=== PATIENT | male | born 1965 | race American Indian/Alaskan Native ===

== ENCOUNTER 2017-05-01 19:17 | Inpatient (IN) | payer OTHER ==
[2017-05-01] MEDS ORDERED: TYLENOL PO ONE (19:41)
[2017-05-01 20:04] LABS: Basophils % (Auto) 0.4 % (0.0-1.8); Eosinophils % (Auto) 0.2 % (0.0-4.3); Hematocrit 46.7 % (35.5-45.6); Hemoglobin 16.2 gm/dl (11.8-15.2); Mean Corpuscular HGB Conc 35 % (32-34); Mean Corpuscular Volume 90 fl (84-94); Platelet Count 132 K/mm3 (140-440); Red Blood Count 5.17 M/mm3 (3.65-5.03); Red Cell Distribution Width 13.8 % (13.2-15.2)
[2017-05-01 20:06] LABS: White Blood Count 9.6 K/mm3 (4.5-11.0)
[2017-05-01 20:07] LABS: Diff Status Complete; Mean Corpuscular Hemoglobin 31 pg (28-32)
[2017-05-01 20:17] LABS: Anion Gap 21 mmol/L; BUN/Creatinine Ratio 21; Blood Urea Nitrogen 17 mg/dL (9-20); Calcium 8.2 mg/dL (8.4-10.2); Carbon Dioxide 20 mmol/L (22-30); Chloride 106.8 mmol/L (98-107); Glucose 93 mg/dL (75-100); Potassium 3.6 mmol/L (3.6-5.0); Sodium 144 mmol/L (137-145)
--- NOTE | 2017-05-01 22:17 | Emergency Department Report ---
HPI - General Chief Complaint: Dyspnea/Respdistress Time Seen by Provider: 05/01/17 21:34 - HPI HPI: This is a 52 year-old male presents to the emergency department with complaint of a 2 to three-day history of intermittent sharp chest pains, shortness of breath, mixed dry and productive cough. He was noted to be diaphoretic in triage. The patient himself says that "everything" is going on. He denies having past medical history but also has not seen a primary care physician and years or decades. He denies tobacco or illicit drug use or abuse. He tried some Advil and aspirin for his symptoms without much relief. No recent travel or sick contacts at home. He does say that he has had some intermittent fevers. He denies any nausea, vomiting, dysuria, edema. ED Past Medical Hx - Past Medical History Previous Medical History?: No - Surgical History Past Surgical History?: No - Social History Smoking Status: Never Smoker Substance Use Type: Alcohol ED Review of Systems ROS: Stated complaint: CONGESTION,COLD, Other details as noted in HPI Comment: All other systems reviewed and negative Constitutional: chills, fever Eyes: denies: eye pain, eye discharge, vision change ENT: denies: ear pain, throat pain Respiratory: cough, shortness of breath Cardiovascular: chest pain. denies: palpitations, edema Gastrointestinal: denies: abdominal pain, nausea, diarrhea Genitourinary: denies: urgency, dysuria Musculoskeletal: denies: back pain, joint swelling, arthralgia Skin: denies: rash, lesions Neurological: denies: headache, weakness, paresthesias Physical Exam - Physical Exam Vital Signs: Vital Signs 05/01/17 05/01/17 05/01/17 19:28 19:31 19:49 Temperature 99.4 F 99.4 F Pulse Rate 133 H 134 H Respiratory 18 26 H 26 H Rate Blood Pressure 171/109 171/109 O2 Sat by Pulse 92 92 Oximetry Physical Exam: GENERAL: The patient is well-developed well-nourished. HENT: Normocephalic. Atraumatic. Patient has moist mucous membranes. EYES: Extraocular motions are intact. Pupils equal reactive to light bilaterally. NECK: Supple. Trachea is midline. CHEST/LUNGS: There are some coarse breath sounds and some rhonchi heard throughout the chest. There is some tachypnea but no excessive muscle use. There is no respiratory distress noted. HEART/CARDIOVASCULAR: Regular. There is mild to moderate tachycardia. There is no gallop rub or murmur. ABDOMEN: Abdomen is soft, nontender. Patient has normal bowel sounds. There is no abdominal distention. SKIN: Skin is warm and dry. NEURO: The patient is awake, alert, and oriented. The patient is cooperative. The patient has no focal neurologic deficits. The patient has normal speech. MUSCULOSKELETAL: There is no tenderness or deformity. There is no limitation range of motion. There is no evidence of acute injury. ED Course Vital Signs 05/01/17 05/01/17 05/01/17 19:28 19:31 19:49 Temperature 99.4 F 99.4 F Pulse Rate 133 H 134 H Respiratory 18 26 H 26 H Rate Blood Pressure 171/109 171/109 O2 Sat by Pulse 92 92 Oximetry ED Medical Decision Making - Lab Data Result diagrams: 05/01/17 19:49 05/01/17 19:46 - EKG Data -: EKG Interpreted by Me EKG shows normal: sinus rhythm (with PVCs), axis, intervals, QRS complexes (LVH) , ST-T waves Rate: tachycardia (130 bpm) - EKG Data When compared to previous EKG there are: previous EKG unavailable Interpretation: LVH - Radiology Data Radiology results: report reviewed, image reviewed interpreted by me: Chest x-ray shows bilateral perihilar infiltrates concerning for pneumonia. There also may be some underlying vascular congestion. PROCEDURE: CT ANGIO CHEST TECHNIQUE: Computerized tomographic angiography of the chest was performed after the IV injection of iodinated nonionic contrast including image processing. The image data was postprocessed using 2-dimensional multiplanar reformatted (MPR) and 3-dimensional (MIP and/or volume rendered) techniques. HISTORY: SOB, elevated dimer COMPARISON: No prior studies are available for comparison. FINDINGS: Heart and pericardium: Normal. Thoracic aorta: There is no thoracic aortic aneurysm or dissection.. Pulmonary vasculature: There is no pulmonary embolism.. Lymph nodes: There are prominent mediastinal and hilar lymph nodes. These could be reactive.. Lungs: Lungs are well-expanded. There are diffuse bilateral perihilar infiltrates. There are mild emphysematous changes.. Pleural space: There is no pleural effusion or pneumothorax.. Musculoskeletal structures: No significant abnormality. Upper abdominal structures: No significant abnormality. IMPRESSION: Heart size is normal. There is no thoracic aortic aneurysm or dissection.. There is no pulmonary embolism.. There are prominent mediastinal and hilar lymph nodes. These could be reactive.. Lungs are well-expanded. There are diffuse bilateral perihilar infiltrates. There are mild emphysematous changes.. There is no pleural effusion or pneumothorax.. Transcribed By: CO Dictated By: YUMIKO CHOWDARY MD Electronically Authenticated By: YUMIKO CHOWDARY MD Signed Date/Time: 05/01/17 8139 - Medical Decision Making The patient presents with some shortness of breath, chest discomfort. His lungs sound rhonchorous and slightly coarse. He has some tachycardia and tachypnea but does not appear to be in any respiratory distress. Chest x-ray shows concern for bilateral perihilar pneumonia but there also may be some underlying vascular congestion. His BNP was elevated at about 1500 so he was given a dose of Lasix. When his heart rate came down to a more reasonable level he was given a breathing treatment. He was afebrile but did have some hypoxia with a pulse ox down in the low 90s. He had a slightly elevated and equivocal d-dimer so a CT angiography of the chest was done that did not show any PE or dissection but did show confirmation of the infiltrates and probable pneumonia. Blood cultures are sent and the patient was started on antibiotics and he will be admitted to the hospital and has been accepted by the hospitalist , Dr Medel. - Differential Diagnosis PE, Pneumonia, CHF, COPD Critical Care Time: No Critical care attestation.: If time is entered above; I have spent that time in minutes in the direct care of this critically ill patient, excluding procedure time. ED Disposition Clinical Impression: Hypoxia Dyspnea Qualifiers: Dyspnea type: shortness of breath Qualified Code(s): R06.02 - Shortness of breath Bilateral pneumonia Qualifiers: Pneumonia type: due to unspecified organism Lung location: unspecified part of lung Qualified Code(s): J18.9 - Pneumonia, unspecified organism Disposition: OP ADMIT IP TO THIS HOSP Is pt being admited?: Yes Condition: Stable Time of Disposition: 03:18
--- NOTE | 2017-05-01 22:18 | XRay Report ---
FINAL REPORT EXAM: XR CHEST ROUTINE 2V HISTORY: Shortness of breath TECHNIQUE: Chest two views PRIORS: None. FINDINGS: There is bilateral central interstitial and alveolar prominence with air bronchograms present. Cardiac silhouette is enlarged. No pleural effusion seen. Pulmonary vasculature is unremarkable. IMPRESSION: Bilateral central pulmonary infiltrates. Pattern is most consistent with acute pulmonary edema. This could be cardiogenic or noncardiogenic. Mild cardiomegaly
[2017-05-01 22:20] LABS: INR 1.27 (0.87-1.13)
[2017-05-01] MEDS ORDERED: LASIX IV ONE (22:39)
[2017-05-01] MEDS ORDERED: NACL ONE (23:47)
[2017-05-02] MEDS ORDERED: DUONEB *Not for PRN Use IH ONE (01:12)
--- NOTE | 2017-05-02 02:56 | Cat Scan Report ---
FINAL REPORT PROCEDURE: CT ANGIO CHEST TECHNIQUE: Computerized tomographic angiography of the chest was performed after the IV injection of iodinated nonionic contrast including image processing. The image data was postprocessed using 2-dimensional multiplanar reformatted (MPR) and 3-dimensional (MIP and/or volume rendered) techniques. HISTORY: SOB, elevated dimer COMPARISON: No prior studies are available for comparison. FINDINGS: Heart and pericardium: Normal. Thoracic aorta: There is no thoracic aortic aneurysm or dissection.. Pulmonary vasculature: There is no pulmonary embolism.. Lymph nodes: There are prominent mediastinal and hilar lymph nodes. These could be reactive.. Lungs: Lungs are well-expanded. There are diffuse bilateral perihilar infiltrates. There are mild emphysematous changes.. Pleural space: There is no pleural effusion or pneumothorax.. Musculoskeletal structures: No significant abnormality. Upper abdominal structures: No significant abnormality. IMPRESSION: Heart size is normal. There is no thoracic aortic aneurysm or dissection.. There is no pulmonary embolism.. There are prominent mediastinal and hilar lymph nodes. These could be reactive.. Lungs are well-expanded. There are diffuse bilateral perihilar infiltrates. There are mild emphysematous changes.. There is no pleural effusion or pneumothorax..
[2017-05-02] MEDS ORDERED: LEVAQUIN 750MG/150ML 750 MG/150 ML BAG IV ONE (03:04)
[2017-05-02] MEDS ORDERED: NACL 0.9% 250ML 250 ML ONE (03:39)
[2017-05-02] MEDS ORDERED: NACL 0.9% 250ML 250 ML IV ONE (03:55)
[2017-05-02] MEDS: HEPARIN SUB-Q SCH ×3 (06:08→22:19)
[2017-05-02] MEDS ORDERED: DULCOLAX PR PRN (06:56)
[2017-05-02] MEDS ORDERED: MILK OF MAGNESIA PO PRN (06:56)
[2017-05-02] MEDS ORDERED: ZOFRAN IV PRN (06:56)
--- NOTE | 2017-05-02 07:02 | History and Physical Report ---
History of Present Illness Date of admission: 05/02/17 03:18 Chief complaint: Productive cough History of present illness: 52-year-old male with no significant past medical history who presents to the hospital with 4 days of progressively worsening productive cough. He is also complaining of intermittent fevers and shortness of breath. Body aches also, he just feels that everything is wrong with him right now. Denies any sick contacts, denies recent travel. Past History Past Medical History: No medical history Past Surgical History: No surgical history Social history: no significant social history Family history: no significant family history Medications and Allergies Allergies Allergy/AdvReac Type Severity Reaction Status Date / Time No Known Allergies Allergy Verified 04/29/15 01:38 Home Medications Medication Instructions Recorded Confirmed Last Taken Type No Known Home Medications [No 05/02/17 05/02/17 Unknown History Reported Home Medications] Active Meds: Active Medications Heparin Sodium (Porcine) (Heparin) 5,000 unit SUB-Q Q8HR [facility] Last Admin: 05/02/17 06:08 Dose: 5,000 unit Levofloxacin/Dextrose (Levaquin 750mg/150ml) 750 mg in 150 mls @ 100 mls/hr IV Q24HR [facility] PRN Reason: Protocol Influenza Virus Vaccine Quadrival (Fluarix Quad [id number](36 Mos+) 0.5 ml IM .ONCE ONE Stop: 05/02/17 12:01 Pneumococcal Polyvalent Vaccine (Pneumovax 23) 0.5 ml IM .ONCE ONE Stop: 05/02/17 12:01 Review of Systems All systems: negative Constitutional: fatigue, malaise, lethargy Respiratory: cough with sputum, shortness of breath Exam - Constitutional Vitals: Temp Pulse Resp BP Pulse Ox 98.9 F 115 H 16 136/94 92 05/02/17 05:33 05/02/17 05:46 05/02/17 05:33 05/02/17 05:33 05/02/17 05:33 General appearance: Present: no acute distress, well-nourished - EENT Eyes: Present: PERRL ENT: hearing intact, clear oral mucosa - Neck Neck: Present: supple, normal ROM - Respiratory Respiratory effort: normal Respiratory: bilateral: rhonchi - Cardiovascular Heart Sounds: Present: S1 & S2. Absent: rub, click - Extremities Extremities: pulses symmetrical, No edema Peripheral Pulses: within normal limits - Abdominal General gastrointestinal: Present: soft, non-tender, non-distended, normal bowel sounds Male genitourinary: Present: normal - Integumentary Integumentary: Present: clear, warm, dry - Musculoskeletal Musculoskeletal: gait normal, strength equal bilaterally - Psychiatric Psychiatric: appropriate mood/affect, intact judgment & insight - Neurologic Neurologic: CNII-XII intact, moves all extremities Results - Labs CBC & Chem 7: 05/01/17 19:49 05/01/17 19:46 Labs: Laboratory Last Values WBC 9.6 K/mm3 (4.5-11.0) 05/01/17 19:49 RBC 5.17 M/mm3 (3.65-5.03) H 05/01/17 19:49 Hgb 16.2 gm/dl (11.8-15.2) H 05/01/17 19:49 Hct 46.7 % (35.5-45.6) H 05/01/17 19:49 MCV 90 fl (84-94) 05/01/17 19:49 MCH 31 pg (28-32) 05/01/17 19:49 MCHC 35 % (32-34) H 05/01/17 19:49 RDW 13.8 % (13.2-15.2) 05/01/17 19:49 Plt Count 132 K/mm3 (140-440) L 05/01/17 19:49 Lymph % (Auto) 9.0 % (13.4-35.0) L 05/01/17 19:49 Wetzel % (Auto) 5.0 % (0.0-7.3) 05/01/17 19:49 Eos % (Auto) 0.2 % (0.0-4.3) 05/01/17 19:49 Baso % (Auto) 0.4 % (0.0-1.8) 05/01/17 19:49 Lymph # 0.9 K/mm3 (1.2-5.4) L 05/01/17 19:49 Wetzel # 0.5 K/mm3 (0.0-0.8) 05/01/17 19:49 Eos # 0.0 K/mm3 (0.0-0.4) 05/01/17 19:49 Baso # 0.0 K/mm3 (0.0-0.1) 05/01/17 19:49 Add Manual Diff Complete 05/01/17 19:49 Seg Neutrophils % 85.4 % (40.0-70.0) H 05/01/17 19:49 Seg Neutrophils # 8.2 K/mm3 (1.8-7.7) H 05/01/17 19:49 PT 16.5 Sec. (12.2-14.9) H 05/01/17 21:40 INR 1.27 (0.87-1.13) H 05/01/17 21:40 APTT 38.0 Sec. (24.2-36.6) H 05/01/17 21:40 D-Dimer 243.64 ng/mlDDU (0-234) H 05/01/17 22:26 Sodium 144 mmol/L (137-145) 05/01/17 19:46 Potassium 3.6 mmol/L (3.6-5.0) 05/01/17 19:46 Chloride 106.8 mmol/L (98-107) 05/01/17 19:46 Carbon Dioxide 20 mmol/L (22-30) L 05/01/17 19:46 Anion Gap 21 mmol/L 05/01/17 19:46 BUN 17 mg/dL (9-20) 05/01/17 19:46 Creatinine 0.8 mg/dL (0.8-1.5) 05/01/17 19:46 Estimated GFR > 60 ml/min 05/01/17 19:46 BUN/Creatinine Ratio 21 % 05/01/17 19:46 Glucose 93 mg/dL (75-100) 05/01/17 19:46 Calcium 8.2 mg/dL (8.4-10.2) L 05/01/17 19:46 Troponin T < 0.010 ng/mL (0.00-0.029) 05/02/17 01:45 NT-Pro-B Natriuret Pep 1520 pg/mL (0-900) H 05/01/17 19:46 - Imaging and Cardiology Chest x-ray: image reviewed (bilateral perihilar infiltrates) Assessment and Plan Assessment and plan: 52-year-old male with no significant past medical history admitted to the hospital for pneumonia - Patient Problems (1) Sepsis Current Visit: Yes Status: Acute Plan to address problem: Follow blood cultures, continue antibiotics, continue sepsis pathway (2) Bilateral pneumonia Current Visit: Yes Status: Acute Qualifiers: Pneumonia type: due to unspecified organism Lung location: unspecified part of lung Qualified Code(s): J18.9 - Pneumonia, unspecified organism Plan to address problem: Continue antibiotics which every day started in the ER. Check sputum culture.
[2017-05-02] MEDS: LEVAQUIN 750MG/150ML 750 MG/150 ML BAG IV SCH (11:41)
[2017-05-02] MEDS ORDERED: PNEUMOVAX 23 IM ONE (12:00)
[2017-05-02] MEDS ORDERED: Fluarix Quad 2017-2018(36 MOS+ IM ONE (12:00)
[2017-05-02 14:50] LABS: HIV-1 Antigen p24 Non React (Non React); HIVR-1/2 Ab Non React (Non React)
--- NOTE | 2017-05-02 15:22 | Event Note ---
Date: 05/02/17 patient seen and examined. admitted this am for b/l PNA and sepsis. will cont current mx and plan as dictated in h and P. will order HIV test.
[2017-05-03] MEDS: HEPARIN SUB-Q SCH ×3 (06:17→22:41)
[2017-05-03] MEDS ORDERED: APRESOLINE IV PRN (11:30)
--- NOTE | 2017-05-03 14:00 | Consultation ---
History of Present Illness - Reason for Consult Consult date: 05/03/17 LNs Requesting physician: DEVEN HOLCOMB - History of Present Illness 52 years old male without non medical history, admitted on 05/02/2017 due to 5 days history of malaise, anorexia, dry cough on subjective fever. Patient reports poor appetite. Patient denies any sick contacts. In the emergency room, initial temperature was 99.4, heart rate 136, blood pressure 171/109. Initial white count 9.6. Platelets 132. Hemoglobin 16.2. Creatinine 0.8. HIV test negative. CT of the abdomen showed prominent mediastinal and hilar lymph nodes. Influenza neg. Microbiology: Blood cultures: 05/02 ngtd Urine cultures: Respiratory cultures: Current Antimicrobials: Levaquin 05/02 Previous Antimicrobials: Past History Past Medical History: No medical history Past Surgical History: No surgical history Social history: no significant social history Family history: no significant family history Medications and Allergies Allergies Allergy/AdvReac Type Severity Reaction Status Date / Time No Known Allergies Allergy Verified 04/29/15 01:38 Home Medications Medication Instructions Recorded Confirmed Last Taken Type ALBUTEROL Inhaler [ProAir HFA 2 puff IH QID PRN 30 Days 05/03/17 Unknown Rx Inhaler] inhalation Levofloxacin [Levaquin] 750 mg PO QDAY #30 tablet 05/03/17 Unknown Rx Active Meds: Active Medications Acetaminophen (Tylenol) 650 mg PO Q4H PRN PRN Reason: Pain MILD(1-3)/Fever >100.5/GARCIA Bisacodyl (Dulcolax) 10 mg [place] QDAY PRN PRN Reason: Constipation unrelieved by MOM Heparin Sodium (Porcine) (Heparin) 5,000 unit SUB-Q Q8HR [facility] Last Admin: 05/03/17 06:17 Dose: Not Given Hydralazine HCl (Apresoline) 5 mg IV Q30MIN PRN PRN Reason: Hypertension Levofloxacin/Dextrose (Levaquin 750mg/150ml) 750 mg in 150 mls @ 100 mls/hr IV Q24HR [facility] PRN Reason: Protocol Last Admin: 05/02/17 11:41 Dose: 100 mls/hr Magnesium Hydroxide (Milk Of Magnesia) 30 ml PO Q4H PRN PRN Reason: Constipation Ondansetron HCl (Zofran) 4 mg IV Q8H PRN PRN Reason: N/V unrelieved by Reglan Review of Systems All systems: negative (as per HPI rest neg) Physical Examination - Physical Exam Narrative exam: General appearance: Alert in NAD, conversant Eyes: +icteric sclerae, moist conjunctivae; no lid-lag; PERRLA HENT: Atraumatic; oropharynx clear Neck: Trachea midline; supple, no thyromegaly or lymphadenopathy Lungs: scattered rhonchi CV: RRR, no murmurs Abdomen: Soft, non-tender Extremities: No peripheral edema or extremity lymphadenopathy Skin: Normal temperature, turgor and texture; no rash, ulcers or subcutaneous nodules Psych: Appropriate affect, alert and oriented to person, place and time. Neuro: alert and oriented x 3. Moving all extermities Lines: No CVL / PICC - Constitutional Vitals: Vital Signs Temp Pulse Resp BP Pulse Ox 99.1 F 120 H 18 158/108 96 05/03/17 12:19 05/03/17 11:20 05/03/17 11:19 05/03/17 12:19 05/03/17 11:20 Temperature -Last 24 Hours Temperature 99.1 F Temperature 99.1 F Temperature 98.6 F Temperature 100.1 F Temperature 10.2 F Temperature 99.9 F Temperature 98.9 F Results - Labs CBC & Chem 7: 05/01/17 19:49 05/01/17 19:46 Assessment and Plan Assessment: 1) SIRS: Present on admission, manifested by fever, tachycardia. Etiology unclear ? pneumonia . 2) CAP: CTA showed diffuse perihilar infiltrates and bilateral prominent mediastinal/hilar LNs. DDx: atypical pneumonia, viral, bacterial. HIV rapid neg. Influenza neg. Plan: -follow-up blood cultures -obtain respiratory cultures, procalcitonin, C-reactive protein (CRP) -check Legionella urine antigen, Streptococcus pneumoniae urine antigen -check LFTs -continue levaquin for now Thank you Dr Fuller for your consultation, will follow up with you. Jennifer Oliveira MD Infectious Diseases Specialist [facility], [place], [facility] ([facility]) M [phone] O [phone]
--- NOTE | 2017-05-03 16:06 | Progress Note ---
Assessment and Plan / Sepsis likely due to B/l community acquired PNA Follow blood cultures, continue antibiotics, continue sepsis pathway /Bilateral pneumonia Continue antibiotics with iv levaquin. follow sputum culture. cont to have low grade fever, consulted ID ID recommended following: -check procalcitonin, C-reactive protein (CRP) -check Legionella urine antigen, Streptococcus pneumoniae urine antigen -check LFTs /HTN will place on Norvasc /Elevated BNP obtain 2d echo to assess cardiac EF / DVT Px Lovenox brief History: 52-year-old male with no significant past medical history who presents to the hospital with 4 days of progressively worsening productive cough , intermittent fevers and shortness of breath. CXY and CTA chest showed perihilar lymph adenopathy and b/l cetrilobular infiltrates. Subjective Date of service: 05/03/17 Interval history: pt seen and examined Left AMA this morning because his morning food was delayed he again came back less than an hour by administration refused lab and complained about flu/PNA shot Spiking low grade temp, discussed plan of care at bedside in details Objective - Constitutional Vitals: Vital Signs - 12hr 05/03/17 05/03/17 05/03/17 08:08 08:09 08:13 Temperature 100.1 F H 98.6 F Pulse Rate 116 H 116 H 79 Respiratory 18 18 Rate Blood Pressure 143/99 143/99 145/82 Blood Pressure [Right] O2 Sat by Pulse 94 95 100 Oximetry 05/03/17 05/03/17 05/03/17 08:14 11:19 11:20 Temperature 99.1 F Pulse Rate 79 120 H 120 H Respiratory 18 Rate Blood Pressure 153/108 153/108 Blood Pressure [Right] O2 Sat by Pulse 100 93 96 Oximetry 05/03/17 05/03/17 12:19 14:50 Temperature 99.1 F Pulse Rate 103 H Respiratory Rate Blood Pressure Blood Pressure 158/108 [Right] O2 Sat by Pulse Oximetry General appearance: Present: no acute distress, well-nourished - EENT Eyes: PERRL, EOM intact ENT: hearing intact, clear oral mucosa Ears: bilateral: normal - Neck Neck: supple, normal ROM - Respiratory Respiratory effort: normal Respiratory: bilateral: CTA - Cardiovascular Rhythm: regular Heart Sounds: Present: S1 & S2. Absent: gallop, rub Extremities: pulses intact, No edema, normal color, Full ROM - Gastrointestinal General gastrointestinal: Present: soft, non-tender, non-distended, normal bowel sounds - Integumentary Integumentary: clear, warm, dry - Musculoskeletal Musculoskeletal: 1, strength equal bilaterally - Neurologic Neurologic: moves all extremities - Psychiatric Psychiatric: memory intact, appropriate mood/affect, intact judgment & insight - Labs CBC & Chem 7: 05/01/17 19:49 05/01/17 19:46 - Imaging and cardiology Chest x-ray: report reviewed CT scan - chest: report reviewed
[2017-05-03] MEDS: LEVAQUIN 750MG/150ML 750 MG/150 ML BAG IV SCH (17:45)
[2017-05-03] MEDS: NORVASC PO SCH (18:48)
[2017-05-03] MEDS: TYLENOL PO PRN (22:41)
[2017-05-04] MEDS: HEPARIN SUB-Q SCH (06:32)
[2017-05-04] MEDS: LEVAQUIN 750MG/150ML 750 MG/150 ML BAG IV SCH (10:11)
[2017-05-04] MEDS: TYLENOL PO PRN (10:12)
[2017-05-04] MEDS: NORVASC PO SCH (10:13)
--- NOTE | 2017-05-04 10:33 | Discharge Summary ---
Providers - Providers Date of Admission: 05/02/17 03:18 Date of discharge: 05/04/17 Attending physician: LIU DYKES MD 05/03/17 10:30 Consult to Physician [CONS] Routine Consulting Provider: SOHAN BLEDSOE Reason For Exam: sepsis Place consult to:: manager configuration ID Notified:: yes Was contact made?: Yes If yes, spoke with:: Dr Delgado Time called:: 10:34 Primary care physician: [employer] Hospitalization Reason for admission: sepsis, bilateral pneumonia, New onset acute systolic CHF Condition: Stable Pertinent studies: Echo EF 15-20% CTA bilateral infiltrates Hospital course: 52-year-old male with no significant past medical history who presents to the hospital with 4 days of progressively worsening productive cough. He is also complaining of intermittent fevers and shortness of breath. Body aches also, he just feels that everything is wrong with him right now. Denies any sick contacts, denies recent travel. Patient was managed according to sepsis protocol for pneumonia and patient showed improvement. Patient admitted that he had dyspnea on exertion for the last 4 months, echo was done and showed ejection fraction of 15-20%, cardiology consulted and recommended cardiac cath and patient refused and signed AGAINST MEDICAL ADVICE and leave the hospital. I have explained the risk benefits of being worked up and get the appropriate medications but he refused. Cardiology advised him to follow up in the clinic. Disposition: [id number] LEFT AGAINST MED ADVICE Time spent for discharge: 31 minutes - Discharge Diagnoses (1) Bilateral pneumonia Status: Acute Qualifiers: Pneumonia type: due to unspecified organism Lung location: unspecified part of lung Qualified Code(s): J18.9 - Pneumonia, unspecified organism (2) Dyspnea Status: Acute Qualifiers: Dyspnea type: shortness of breath Qualified Code(s): R06.02 - Shortness of breath; R06.00 - Dyspnea, unspecified; R06.01 - Orthopnea (3) Sepsis Status: Acute (4) Acute systolic CHF (congestive heart failure), NYHA class 4 Status: Acute Core Measure Documentation - Palliative Care Palliative Care/ Comfort Measures: Not Applicable - Core Measures Any of the following diagnoses?: heart failure, none - Heart Failure Discharge Requirements SHIRLENE/ARB for LVSD if EF <40%: No Reason for no SHIRLENE/ARB: Patient refusal (patient left AMA) Beta sarita at discharge: No Reason for no beta sarita on DC: Patient refusal (patient left AMA) Exam - Physical Exam Narrative exam: Not in cardiopulmonary distress. The patient appeared well nourished and normally developed. Vital signs as documented. Head exam is unremarkable. No scleral icterus . Neck is without jugular venous distension, thyromegaly, or carotid bruits. Lungs are clear to auscultation. Cardiac exam reveals regular rate and Rhythm. First and second heart sounds normal. No murmurs, rubs or gallops. Abdominal exam reveals normal bowel sounds, no masses, no organomegaly and no aortic enlargement. Extremities are nonedematous and both femoral and pedal pulses are normal. VAPOR COATER: Alert and oriented 3. No focal weakness. - Constitutional Vitals: Temp Pulse Resp BP Pulse Ox 99.1 F 80 18 113/74 94 05/04/17 07:37 05/04/17 10:13 05/04/17 07:37 05/04/17 07:37 05/04/17 07:37 Plan Activity: no restrictions Weight Bearing Status: Full Weight Bearing Diet: low cholesterol Follow up with: PRIMARY CAREMD [Primary Care Provider] - 3-5 Days
[2017-05-04 12:04] VITALS: BP 130/99
[2017-05-04] MEDS ORDERED: Fluarix Quad 2017-2018(36 MOS+ IM ONE (12:30)
--- NOTE | 2017-05-04 12:45 | Progress Note ---
Assessment and Plan Assessment: 1) SIRS: still low grade fever. Etiology unclear ? pneumonia +/- CHF exacerbation. 2) Presumed CAP: CTA showed diffuse perihilar infiltrates and bilateral prominent mediastinal/hilar LNs. DDx: atypical pneumonia, viral, bacterial. HIV rapid neg. Influenza neg. 3) CHF ? Plan: -f/u Legionella urine antigen, Streptococcus pneumoniae urine antigen -check LFTs -cards eval -continues levaquin total 7 days I am signing off Thank you Dr Fuller for your consultation, will follow up with you. Jennifer Oliveira MD Infectious Diseases Specialist [facility] ([facility]) M [phone] O [phone] Subjective Date of service: 05/04/17 Principal diagnosis: pneumonia Interval history: Feels better, still low grade fever tmax 100. Minimal cough. Microbiology: Blood cultures: 05/02 ngtd Urine cultures: Respiratory cultures: Current Antimicrobials: Levaquin 05/02 Previous Antimicrobials: Objective - Exam Narrative Exam: General appearance: Alert in NAD, conversant Eyes: +icteric sclerae, moist conjunctivae; no lid-lag; PERRLA HENT: Atraumatic; oropharynx clear Neck: Trachea midline; supple, no thyromegaly or lymphadenopathy Lungs: scattered rhonchi CV: RRR, no murmurs Abdomen: Soft, non-tender Extremities: No peripheral edema or extremity lymphadenopathy Skin: Normal temperature, turgor and texture; no rash, ulcers or subcutaneous nodules Psych: Appropriate affect, alert and oriented to person, place and time. Neuro: alert and oriented x 3. Moving all extermities Lines: No CVL / PICC - Constitutional Vitals: Vital Signs Temp Pulse Resp BP Pulse Ox 98.6 F 110 H 18 130/99 98 05/04/17 11:18 05/04/17 11:18 05/04/17 11:18 05/04/17 11:18 05/04/17 11:18 Temperature -Last 24 Hours Temperature 98.6 F Temperature 99.1 F Temperature 98.8 F Temperature 100.0 F Temperature 99.0 F Temperature 100.3 F Temperature 100.3 F - Labs CBC & Chem 7: 05/01/17 19:49 05/01/17 19:46
--- NOTE | 2017-05-04 13:52 | Consultation ---
History of Present Illness Consult date: 05/04/17 Requesting physician: LIU DYKES Consult reason: other (CMP) History of present illness: Pt is a 52-year-old male with no significant past medical history who presented to the hospital on 05/01 with c/o progressively worsening productive cough, SOB and chest pain and was subsequently diagnosed with bilateral PNA. Of note, he was recently discharged on 04/29 following evaluation of chest pain. He underwent echo on this admission which showed EF 15-20% and thus cardiology has been consulted. On evaluation, pt denies any current complaints and states he is going to leave the hospital today regardless of any further recommendations by medical staff. He admits to [facility] for the past 4 months. He states that he smokes marijuana daily and drinks alcohol daily (6 pack of beer and one bottle of wine). He does not give any additional details. Past History Past Medical History: No medical history Past Surgical History: No surgical history Social history: smoking (marijuana), alcohol abuse Family history: no significant family history Medications and Allergies Allergies Allergy/AdvReac Type Severity Reaction Status Date / Time No Known Allergies Allergy Verified 04/29/15 01:38 Active Meds: Active Medications Acetaminophen (Tylenol) 650 mg PO Q4H PRN PRN Reason: Pain MILD(1-3)/Fever >100.5/GARCIA Last Admin: 05/04/17 10:12 Dose: 650 mg Amlodipine Besylate (Norvasc) 10 mg PO QDAY [facility] Last Admin: 05/04/17 10:13 Dose: 10 mg Bisacodyl (Dulcolax) 10 mg NM QDAY PRN PRN Reason: Constipation unrelieved by MOM Heparin Sodium (Porcine) (Heparin) 5,000 unit SUB-Q Q8HR [facility] Last Admin: 05/04/17 06:32 Dose: Not Given Hydralazine HCl (Apresoline) 5 mg IV Q30MIN PRN PRN Reason: Hypertension Levofloxacin/Dextrose (Levaquin 750mg/150ml) 750 mg in 150 mls @ 100 mls/hr IV Q24HR [facility] PRN Reason: Protocol Last Admin: 05/04/17 10:11 Dose: 100 mls/hr Magnesium Hydroxide (Milk Of Magnesia) 30 ml PO Q4H PRN PRN Reason: Constipation Ondansetron HCl (Zofran) 4 mg IV Q8H PRN PRN Reason: N/V unrelieved by Reglan Review of Systems All systems: negative Respiratory: dyspnea on exertion Physical Examination Vital Signs Pulse BP Pulse Ox 136 H 171/109 92 05/01/17 19:27 05/01/17 19:27 05/01/17 19:27 General appearance: no acute distress HEENT: Positive: PERRL, Normocephaly, Mucus Membranes Moist Neck: Positive: neck supple, trachea midline Cardiac: Positive: Regular Rhythm, S1/S2, S4, Tachycardia Lungs: Positive: clear to auscultation Neuro: Positive: Grossly Intact, Cranial Nerve 2-12 Intact Abdomen: Positive: Unremarkable, Soft, Active Bowel Sounds. Negative: Tender Skin: Positive: Clear. Negative: Rash, Wound Musculoskeletal: No Fluid Collection, No Pain, Normal Range of Motion Extremities: Absent: edema Results 05/01/17 19:49 05/01/17 19:46 - Imaging and Cardiology Echo: report reviewed (EF 15-20%, severe global hypokinesis, LA moderately dilated, moderate MR, moderate TR, RVSP 53mmHg, mod pulm HTN) EKG: report reviewed, image reviewed EKG interpretations - Telemetry EKG Rhythm: Sinus Rhythm - EKG Sinus rhythms and dysrhythmias: sinus rhythm Chamber hypertrophy or enlargement: left ventricular hypertro Repolarization changes or abnormalities: repolarization abn secondary to ventricular hypertrophy Assessment and Plan Assessment: Cardiomyopathy - EF 15-20%; ? ETOH induced Sinus tachycardia Bilateral PNA Elevated DDimer - chest CTA negative for PE. ETOH use / marijuana use - cessation encouraged Plan: Diagnosis of CMP reviewed with pt and increased risk for sudden cardiac discussed. Pt verbalizes understanding. He believes he can manage his CMP via lifestyle modifications (nutrition and cessation of ETOH and marijuana). Ischemic evaluation for further exploration of CMP etiology recommended. Pt declines any further noninvasive or invasive testing at this time. Initiation of BB and ACEI/ARB recommended. However, pt does not wish to stay hospitalized for safe introduction of these medications. Pt to leave AMA. Pt provided with follow up appointment for our office - [facility] with Dr. Vazquez on 05/18/2017 @ 2:15PM. Assessment and plan reviewed with pt and pt's family member at bedside. The patient has been seen in conjunction with Dr. Vazquez who agrees with the assessment and plan of care.
== END 2017-05-04 14:49 | disposition left against medical advice (07) | DRG 871 ==
LOC: ED 19:17 → 4A 05-02 03:18
PROVIDERS: ADMIT Internal Medicine; ATTEND Internal Medicine
DX: A41.9 Sepsis, unspecified organism (principal); J18.9 Pneumonia, unspecified organism; I42.9 Cardiomyopathy, unspecified; R07.9 Chest pain, unspecified; I10 Essential (primary) hypertension; F12.90 Cannabis use, unspecified, uncomplicated; E87.6 Hypokalemia; Z79.2 Long term (current) use of antibiotics; Z79.899 Other long term (current) drug therapy; Z72.89 Other problems related to lifestyle
CPT/HCPCS: 36415; 71020; 71275; 80048; 83880; 84484; 85025; 85379; 85610; 85730; 87040; 87400; 87806; 90686; 90732; 93005; 93010; 93306; 94640; 96365; 96375; J1644; J1940; J1956; J7050; Q9967

== ENCOUNTER 2017-06-14 13:56 | Inpatient (IN) | payer OTHER ==
[2017-06-14 15:02] LABS: Basophils # (Auto) 0.1 K/mm3 (0.0-0.1); Basophils % (Auto) 0.4 % (0.0-1.8); Eosinophils % (Auto) 0.1 % (0.0-4.3); Hematocrit 37.5 % (35.5-45.6); Hemoglobin 12.3 gm/dl (11.8-15.2); Lymphocytes % (Auto) 6.5 % (13.4-35.0); Mean Corpuscular HGB Conc 33 % (32-34); Mean Corpuscular Hemoglobin 28 pg (28-32); Mean Corpuscular Volume 86 fl (84-94); Monocytes % (Auto) 6.3 % (0.0-7.3); Platelet Count 363 K/mm3 (140-440); Red Blood Count 4.34 M/mm3 (3.65-5.03); Red Cell Distribution Width 13.7 % (13.2-15.2)
[2017-06-14 15:21] LABS: BUN/Creatinine Ratio 16; Blood Urea Nitrogen 13 mg/dL (9-20); Calcium 8.1 mg/dL (8.4-10.2); Hemolysis Index 6
--- NOTE | 2017-06-14 15:30 | XRay Report ---
AP CHEST: HISTORY: Shortness of breath Compared to 05/01/17. Cardiomegaly and pulmonary edema is identified. Possible trace pleural effusions. No pneumothorax. The bony structures are grossly intact. IMPRESSION: Mild CHF.
[2017-06-15] MEDS ORDERED: SUBLIMAZE IV ONE (02:51)
[2017-06-15] MEDS ORDERED: ZOFRAN IV ONE (02:51)
[2017-06-15] MEDS ORDERED: LASIX IV ONE ×2 (02:51→02:57)
[2017-06-15] MEDS ORDERED: LEVAQUIN 500MG/100ML 500 MG/100 ML BAG IV ONE (02:52)
--- NOTE | 2017-06-15 02:59 | Emergency Department Report ---
HPI - General Chief Complaint: Dyspnea/Respdistress Time Seen by Provider: 06/15/17 02:42 - HPI HPI: Room 9 The patient is a 52-year-old male presenting with a chief complaint of shortness of breath. The patient states since yesterday his shortness of breath and intermittent chest pain described as "not sharp." Patient is nausea vomiting and diaphoresis with this chest pain. The patient admits to subjective fever and a cough that is nonproductive. Patient states he is not on a diuretic. The patient currently gets his pain score of 3/10 Location: Chest, lungs Duration: 2 Days Quality: "Not sharp" Severity:3/10 Modifying factors: [see above] Context: [see above] Mode of transportation: [not driving] ED Past Medical Hx - Past Medical History Previous Medical History?: Yes Hx Congestive Heart Failure: Yes Additional medical history: Heart Problems - Surgical History Past Surgical History?: No - Family History Family history: no significant - Social History Smoking Status: Former Smoker (none 15 years) Substance Use Type: None (denies illicit drug use) ED Review of Systems ROS: Stated complaint: COUGH, CP Other details as noted in HPI Constitutional: diaphoresis, fever Respiratory: cough, shortness of breath Cardiovascular: chest pain Gastrointestinal: nausea, vomiting Physical Exam - Physical Exam Vital Signs: Vital Signs 06/14/17 06/15/17 06/15/17 14:26 01:21 02:00 Temperature 100.8 F H 102.9 F H 101.7 F H Pulse Rate 51 L 129 H 125 H Respiratory 22 20 22 Rate Blood Pressure 136/93 121/85 Blood Pressure 124/74 [Left] O2 Sat by Pulse 97 90 93 Oximetry Physical Exam: GENERAL: The patient is well-developed well-nourished male sitting on stretcher with slightly increased work of breathing HEENT: Normocephalic. Atraumatic. Extraocular motions are intact. Patient has moist mucous membranes. NECK: Supple. No meningitic signs are noted. There is no adenopathy noted. CHEST/LUNGS: Crackles at the left base. Slightly increased work of breathing HEART/CARDIOVASCULAR: Regular. There is tachycardia. There is no gallop rub or murmur. ABDOMEN: Abdomen is soft, nontender. Patient has normal bowel sounds. There is no abdominal distention. SKIN: There is no rash. There is no edema. There is no diaphoresis. NEURO: The patient is awake, alert, and oriented. The patient is cooperative. The patient has normal speech MUSCULOSKELETAL: There is no evidence of acute injury. ED Course Vital Signs 06/14/17 06/15/17 06/15/17 14:26 01:21 02:00 Temperature 100.8 F H 102.9 F H 101.7 F H Pulse Rate 51 L 129 H 125 H Respiratory 22 20 22 Rate Blood Pressure 136/93 121/85 Blood Pressure 124/74 [Left] O2 Sat by Pulse 97 90 93 Oximetry ED Medical Decision Making - Lab Data Result diagrams: 06/14/17 14:48 06/14/17 14:48 - EKG Data -: EKG Interpreted by Me EKG shows normal: sinus rhythm Rate: normal - EKG Data When compared to previous EKG there are: no significant change Interpretation: unchanged when compared t (05/02/2017), nonspecific ST-T wave radha - Radiology Data Radiology results: report reviewed (chest x-ray), image reviewed (chest x-ray) interpreted by me: Chest x-ray bilateral patchy infiltrate, left lower lobe consolidation AP CHEST: HISTORY: Shortness of breath Compared to 05/01/17. Cardiomegaly and pulmonary edema is identified. Possible trace pleural effusions. No pneumothorax. The bony structures are grossly intact. IMPRESSION: Mild CHF. Transcribed By: TTR Dictated By: BELLE COONEY JR, MD Electronically Authenticated By: BELLE COONEY JR, MD Signed Date/Time: 06/14/17 1524 DD/ 1524 TD/TT: 06/14/17 1524 - Differential Diagnosis pneumonia, CHF Critical care attestation.: If time is entered above; I have spent that time in minutes in the direct care of this critically ill patient, excluding procedure time. ED Disposition Clinical Impression: Bilateral pneumonia, Acute systolic CHF (congestive heart failure), NYHA class 4, Chest pain, Shortness of breath Disposition: OP ADMIT IP TO THIS HOSP Is pt being admited?: Yes Does the pt Need Aspirin: Yes Condition: Fair Instructions: Chest Pain (ED), Bacterial Pneumonia (ED) Referrals: MELCHOR ARNOLD MD [Primary Care Provider] - 3-5 Days Time of Disposition: 04:19 (hospitalist notified (Dr. Marilyn Mcbride))
[2017-06-15] MEDS ORDERED: ASPIRIN PO ONE (03:06)
[2017-06-15] MEDS ORDERED: TYLENOL PO ONE (03:07)
[2017-06-15 03:47] LABS: Creatine Kinase MB 1.4 ng/mL (0.0-4.0)
[2017-06-15] MEDS ORDERED: ZOFRAN IV PRN (06:14)
[2017-06-15] MEDS ORDERED: MILK OF MAGNESIA PO PRN (06:14)
[2017-06-15] MEDS ORDERED: DULCOLAX PR PRN (06:14)
--- NOTE | 2017-06-15 06:21 | History and Physical Report ---
History of Present Illness Date of examination: 06/15/17 History of present illness: 52-year-old man with no medical problem was just discharged from the hospital where was treated for pneumonia. He stated he has completed his course of antibiotic. He returned with complaints of shortness of breath, fever and chest pain in the left chest which she describes as dull pain. Pain is intermittent in nature, lasted for a few minutes, intensity 5/10, no radiation, he cannot identify exacerbating or relieving factors. He complained of a cough productive of white phlegm Review Of Systems: Constitutional: no weight loss Ears, eyes, nose, mouth and throat: no nasal congestion, no nasal discharge, no sinus pressure, blurry vision, diplopia Neck: No neck pain or rigidity. Cardiovascular: No chest pain, palpitations Respiratory:+shortness of breath, cough Gastrointestinal: No abdominal pain, hematochezia Genitourinary : no dysuria, frequency , hematuria Musculoskeletal: no muscle ache Integumentary: no rash, no pruritis Neurological: no parathesias, focal weakness Endocrine: no cold or heat intolerance, no polyuria or polydipsia Hematologic/Lymphatic: no easy bruising, no easy bleeding, no gland swelling Allergic/Immunologic: no urticaria, no angioedema. PAST MEDICAL HISTORY:none PAST SURGICAL HISTORY: None FAMILY HISTORY: Hypertension SOCIAL HISTORY: Denies alcohol, tobacco, drugs Medications and Allergies Allergies Allergy/AdvReac Type Severity Reaction Status Date / Time No Known Allergies Allergy Verified 04/29/15 01:38 Home Medications Medication Instructions Recorded Confirmed Last Taken Type Carvedilol [Coreg] 3.125 mg PO BID 06/15/17 06/15/17 06/14/17 History Lisinopril [Zestril TAB] 2.5 mg PO DAILY 06/15/17 06/15/17 06/14/17 History Exam - Physical Exam Narrative exam: Gen. appearance: Patient lying in bed in no acute distress HEENT: Normocephalic/atraumatic, pupils equal round reactive to light, extra occular movement intact, no scleral icterus, no JVD or thyromegaly or nodule, neck is supple, mucous membrane moist, no erythema or exudate Heart: S1-S2, regular rate and rhythm Lungs: Decreased breath sounds bilateral breathing comfortable Abdomen: Positive bowel sounds, nontender, nondistended, no organomegaly Extremities: No edema, cyanosis, clubbing Neuro:: Oriented 3 , cranial nerves II-12 intact, speech, motor intact Skin: No rash, nodules, warm dry - Constitutional Vitals: Temp Pulse Resp BP Pulse Ox 98.2 F 110 H 18 101/59 93 06/15/17 05:22 06/15/17 06:04 06/15/17 03:43 06/15/17 06:04 06/15/17 02:00 Results - Labs CBC & Chem 7: 06/16/17 12:34 06/16/17 12:34 Labs: Abnormal lab results 06/14/17 06/14/17 Range/Units 14:48 14:48 WBC 15.4 H (4.5-11.0) K/mm3 Lymph % (Auto) 6.5 L (13.4-35.0) % Lymph # 1.0 L (1.2-5.4) K/mm3 [place] # 1.0 H (0.0-0.8) K/mm3 Seg Neutrophils % 86.7 H (40.0-70.0) % Seg Neutrophils # 13.4 H (1.8-7.7) K/mm3 Sodium 135 L (137-145) mmol/L Chloride 95.1 L (98-107) mmol/L Glucose 151 H (75-100) mg/dL Calcium 8.1 L (8.4-10.2) mg/dL - Imaging and Cardiology EKG: image reviewed Chest x-ray: image reviewed Assessment and Plan Assessment SIRS Plan Admit to medicine Start IV Zosyn, follow cultures, CHECK UA Consult infectious disease DVT prophylaxis
[2017-06-15 07:26] LABS: Bilirubin,Urine SM (Negative); Blood,Urine MOD (Negative); Color,Urine Amber (Yellow); Mucus,Urine 3+ /HPF; Nitrite,Urine NEG (Negative)
[2017-06-15 07:31] LABS: WBC,Urine > 182.0 /HPF (0.0-6.0)
[2017-06-15] MEDS: ZOSYN/NS 4.5GM/100ML 4.5 GM/100 ML VIAL IV SCH ×2 (07:57→18:45)
[2017-06-15 08:32] LABS: Ictotest,Urine Negative (Negative)
--- NOTE | 2017-06-15 12:15 | Progress Note ---
<RICO ROCHA - Last Filed: 06/15/17 11:39> Assessment and Plan Assessment and plan: 52-year-old man with no medical problem was just discharged from the hospital where was treated for pneumonia. He stated he has completed his course of antibiotic. He returned with complaints of shortness of breath, fever and chest pain in the left chest which she describes as dull pain. Pain is intermittent in nature, lasted for a few minutes, intensity 5/10, no radiation, he cannot identify exacerbating or relieving factors. He complained of a cough productive of white phlegm SIRS Likely from UTI, ID consulted Will continue Zosyn for now, urine and blood culture pending DVT prophylaxis Lovenox History Interval history: Patient was seen and examined. He is in no acute distress. He denies chest pain, shortness of breath, nausea, vomiting. Nursing notes and labs reviewed. Hospitalist Physical - Constitutional Vitals: Temp Pulse Resp BP Pulse Ox 98.1 F 99 H 20 98/69 91 06/15/17 10:28 06/15/17 10:28 06/15/17 10:28 06/15/17 10:28 06/15/17 10:28 General appearance: Present: no acute distress - EENT Eyes: Present: PERRL, EOM intact ENT: hearing intact, clear oral mucosa - Neck Neck: Present: supple, normal ROM - Respiratory Respiratory effort: normal Respiratory: bilateral: CTA - Cardiovascular Rhythm: regular Heart Sounds: Present: S1 & S2 - Extremities Extremities: no ischemia, No edema Peripheral Pulses: within normal limits - Abdominal General gastrointestinal: soft, non-tender - Integumentary Integumentary: Present: clear, warm, dry - Psychiatric Psychiatric: appropriate mood/affect - Neurologic Neurologic: CNII-XII intact, moves all extremities - Allied Health Allied health notes reviewed: nursing Results - Labs CBC & Chem 7: 06/14/17 14:48 06/14/17 14:48 Labs: Laboratory Last Values WBC 15.4 K/mm3 (4.5-11.0) H 06/14/17 14:48 RBC 4.34 M/mm3 (3.65-5.03) 06/14/17 14:48 Hgb 12.3 gm/dl (11.8-15.2) 06/14/17 14:48 Hct 37.5 % (35.5-45.6) 06/14/17 14:48 MCV 86 fl (84-94) 06/14/17 14:48 MCH 28 pg (28-32) 06/14/17 14:48 MCHC 33 % (32-34) 06/14/17 14:48 RDW 13.7 % (13.2-15.2) 06/14/17 14:48 Plt Count 363 K/mm3 (140-440) 06/14/17 14:48 Lymph % (Auto) 6.5 % (13.4-35.0) L 06/14/17 14:48 Boyd % (Auto) 6.3 % (0.0-7.3) 06/14/17 14:48 Eos % (Auto) 0.1 % (0.0-4.3) 06/14/17 14:48 Baso % (Auto) 0.4 % (0.0-1.8) 06/14/17 14:48 Lymph # 1.0 K/mm3 (1.2-5.4) L 06/14/17 14:48 [place] # 1.0 K/mm3 (0.0-0.8) H 06/14/17 14:48 Eos # 0.0 K/mm3 (0.0-0.4) 06/14/17 14:48 Baso # 0.1 K/mm3 (0.0-0.1) 06/14/17 14:48 Seg Neutrophils % 86.7 % (40.0-70.0) H 06/14/17 14:48 Seg Neutrophils # 13.4 K/mm3 (1.8-7.7) H 06/14/17 14:48 Sodium 135 mmol/L (137-145) L 06/14/17 14:48 Potassium 4.0 mmol/L (3.6-5.0) 06/14/17 14:48 Chloride 95.1 mmol/L (98-107) L 06/14/17 14:48 Carbon Dioxide 23 mmol/L (22-30) 06/14/17 14:48 Anion Gap 21 mmol/L 06/14/17 14:48 BUN 13 mg/dL (9-20) 06/14/17 14:48 Creatinine 0.8 mg/dL (0.8-1.5) 06/14/17 14:48 Estimated GFR > 60 ml/min 06/14/17 14:48 BUN/Creatinine Ratio 16 % 06/14/17 14:48 Glucose 151 mg/dL (75-100) H 06/14/17 14:48 Calcium 8.1 mg/dL (8.4-10.2) L 06/14/17 14:48 Total Creatine Kinase 144 units/L (55-170) 06/15/17 03:01 CK-MB (CK-2) 1.4 ng/mL (0.0-4.0) 06/15/17 03:01 CK-MB (CK-2) Rel Index 0.9 (0-4) 06/15/17 03:01 Troponin T 0.019 ng/mL (0.00-0.029) 06/15/17 03:01 Urine Color [place] (Yellow) 06/15/17 Unknown Urine Turbidity Turbid (Clear) 06/15/17 Unknown Urine pH 5.0 (5.0-7.0) 06/15/17 Unknown Ur Specific [place] 1.025 (1.003-1.030) 06/15/17 Unknown Urine Protein 100 mg/dl mg/dL (Negative) 06/15/17 Unknown Urine Glucose (UA) Neg mg/dL (Negative) 06/15/17 Unknown Urine Ketones Neg mg/dL (Negative) 06/15/17 Unknown Urine Blood Mod (Negative) 06/15/17 Unknown Urine Nitrite Neg (Negative) 06/15/17 Unknown Urine Bilirubin Sm (Negative) 06/15/17 Unknown Urine Ictotest Negative (Negative) 06/15/17 Unknown Urine Urobilinogen 4.0 mg/dL (<2.0) 06/15/17 Unknown Ur Leukocyte Esterase Mod (Negative) 06/15/17 Unknown Urine WBC (Auto) > 182.0 /HPF (0.0-6.0) H 06/15/17 Unknown Urine RBC (Auto) 28.0 /HPF (0.0-6.0) 06/15/17 Unknown U Epithel Cells (Auto) 2.0 /HPF (0-13.0) 06/15/17 Unknown Ur Transition Epith Cell 1 /HPF 06/15/17 Unknown Urine Mucus 3+ /HPF 06/15/17 Unknown <MELCHOR CLEMENTE O - Last Filed: 06/15/17 17:27> Assessment and Plan Assessment and plan: I saw and evaluated the patient. I agree with the findings and the plan of care as documented in the Nurse Practitioner's~note, with the following corrections and additions. Patient with UTI. He also has SIRS vs Sepsis. Continue current management. ID Physician following Hospitalist Physical - Constitutional Vitals: Temp Pulse Resp BP Pulse Ox 98.1 F 99 H 20 98/69 91 06/15/17 10:28 06/15/17 10:28 06/15/17 10:28 06/15/17 10:28 06/15/17 10:28 Results - Labs CBC & Chem 7: 06/14/17 14:48 06/14/17 14:48 Labs: Laboratory Last Values WBC 15.4 K/mm3 (4.5-11.0) H 06/14/17 14:48 RBC 4.34 M/mm3 (3.65-5.03) 06/14/17 14:48 Hgb 12.3 gm/dl (11.8-15.2) 06/14/17 14:48 Hct 37.5 % (35.5-45.6) 06/14/17 14:48 MCV 86 fl (84-94) 06/14/17 14:48 MCH 28 pg (28-32) 06/14/17 14:48 MCHC 33 % (32-34) 06/14/17 14:48 RDW 13.7 % (13.2-15.2) 06/14/17 14:48 Plt Count 363 K/mm3 (140-440) 06/14/17 14:48 Lymph % (Auto) 6.5 % (13.4-35.0) L 06/14/17 14:48 Boyd % (Auto) 6.3 % (0.0-7.3) 06/14/17 14:48 Eos % (Auto) 0.1 % (0.0-4.3) 06/14/17 14:48 Baso % (Auto) 0.4 % (0.0-1.8) 06/14/17 14:48 Lymph # 1.0 K/mm3 (1.2-5.4) L 06/14/17 14:48 [place] # 1.0 K/mm3 (0.0-0.8) H 06/14/17 14:48 Eos # 0.0 K/mm3 (0.0-0.4) 06/14/17 14:48 Baso # 0.1 K/mm3 (0.0-0.1) 06/14/17 14:48 Seg Neutrophils % 86.7 % (40.0-70.0) H 06/14/17 14:48 Seg Neutrophils # 13.4 K/mm3 (1.8-7.7) H 06/14/17 14:48 Sodium 135 mmol/L (137-145) L 06/14/17 14:48 Potassium 4.0 mmol/L (3.6-5.0) 06/14/17 14:48 Chloride 95.1 mmol/L (98-107) L 06/14/17 14:48 Carbon Dioxide 23 mmol/L (22-30) 06/14/17 14:48 Anion Gap 21 mmol/L 06/14/17 14:48 BUN 13 mg/dL (9-20) 06/14/17 14:48 Creatinine 0.8 mg/dL (0.8-1.5) 06/14/17 14:48 Estimated GFR > 60 ml/min 06/14/17 14:48 BUN/Creatinine Ratio 16 % 06/14/17 14:48 Glucose 151 mg/dL (75-100) H 06/14/17 14:48 Calcium 8.1 mg/dL (8.4-10.2) L 06/14/17 14:48 Total Creatine Kinase 144 units/L (55-170) 06/15/17 03:01 CK-MB (CK-2) 1.4 ng/mL (0.0-4.0) 06/15/17 03:01 CK-MB (CK-2) Rel Index 0.9 (0-4) 06/15/17 03:01 Troponin T 0.019 ng/mL (0.00-0.029) 06/15/17 03:01 C-Reactive Protein 20.30 mg/dL (0.00-1.30) H 06/15/17 16:23 Urine Color [place] (Yellow) 06/15/17 Unknown Urine Turbidity Turbid (Clear) 06/15/17 Unknown Urine pH 5.0 (5.0-7.0) 06/15/17 Unknown Ur Specific [place] 1.025 (1.003-1.030) 06/15/17 Unknown Urine Protein 100 mg/dl mg/dL (Negative) 06/15/17 Unknown Urine Glucose (UA) Neg mg/dL (Negative) 06/15/17 Unknown Urine Ketones Neg mg/dL (Negative) 06/15/17 Unknown Urine Blood Mod (Negative) 06/15/17 Unknown Urine Nitrite Neg (Negative) 06/15/17 Unknown Urine Bilirubin Sm (Negative) 06/15/17 Unknown Urine Ictotest Negative (Negative) 06/15/17 Unknown Urine Urobilinogen 4.0 mg/dL (<2.0) 06/15/17 Unknown Ur Leukocyte Esterase Mod (Negative) 06/15/17 Unknown Urine WBC (Auto) > 182.0 /HPF (0.0-6.0) H 06/15/17 Unknown Urine RBC (Auto) 28.0 /HPF (0.0-6.0) 06/15/17 Unknown U Epithel Cells (Auto) 2.0 /HPF (0-13.0) 06/15/17 Unknown Ur Transition Epith Cell 1 /HPF 06/15/17 Unknown Urine Mucus 3+ /HPF 06/15/17 Unknown
[2017-06-15] MEDS ORDERED: PNEUMOVAX 23 IM ONE (14:00)
--- NOTE | 2017-06-15 15:49 | Consultation ---
History of Present Illness - Reason for Consult Consult date: 06/15/17 SIRS Requesting physician: PATRICIA MCBRIDE - History of Present Illness 52 years old male with no known medical history recently discharged from the hospital in Apr 2017 where he was treated for pneumonia +/- CHF exacerbation and finished his levaquin course. He returned with complaints of shortness of breath, fever and chest pain in the left chest which she describes as dull pain. Pain is intermittent in nature, lasted for a few minutes, intensity 5/10 , no radiation, he cannot identify exacerbating or relieving factors. He complained of a cough productive of white phlegm and SOB. He also reports weight loss 10L in 4 weeks. Initial symptoms started 4 weeks ago. No sick contacts. He did not get a flu shot. his last HIV test was Apr 2017 and was neg. In the emergency room, initial temperature was 102.9, heart rate 51, respirations 22, blood pressure 136/93. Initial white count was 15.4. Hemoglobin 12.3. Platelets 363. Creatinine 0.8. Urinalysis was positive with more than 182 white blood cells and moderate leukocyte esterase. CXR showed mild CHF changes. Microbiology: Blood cultures: 1/2 ngtd Current Antimicrobials: Zosyn 1/ Previous Antimicrobials: Past History Past Medical History: other (CHF) Past Surgical History: No surgical history Social history: no significant social history Medications and Allergies Allergies Allergy/AdvReac Type Severity Reaction Status Date / Time No Known Allergies Allergy Verified 04/29/15 01:38 Active Meds: Active Medications Acetaminophen (Tylenol) 650 mg PO Q4H PRN PRN Reason: Pain MILD(1-3)/Fever >100.5/GARCIA Bisacodyl (Dulcolax) 10 mg [place] QDAY PRN PRN Reason: Constipation unrelieved by MOM Enoxaparin Sodium (Lovenox) 40 mg SUB-Q QDAY KRISSY Piperacillin Sod/Tazobactam Sod (Zosyn/Ns 4.5gm/100ml) 4.5 gm in 100 mls @ 200 mls/hr IV Q8H KRISSY PRN Reason: Protocol Last Admin: 06/15/17 07:57 Dose: 200 mls/hr Magnesium Hydroxide (Milk Of Magnesia) 30 ml PO Q4H PRN PRN Reason: Constipation Ondansetron HCl (Zofran) 4 mg IV Q8H PRN PRN Reason: N/V unrelieved by Reglan Review of Systems All systems: negative (as per HPI) Physical Examination - Physical Exam Narrative exam: General appearance: Alert in NAD, conversant Eyes: anicteric sclerae, moist conjunctivae; no lid-lag; PERRLA HENT: Atraumatic; oropharynx clear Neck: Trachea midline; supple, no thyromegaly or lymphadenopathy Lungs: tammi crackles CV: RRR, no murmurs Abdomen: Soft, non-tender; no masses or hepatosplenomegaly Extremities: No peripheral edema or extremity lymphadenopathy Skin: Normal temperature, turgor and texture; no rash, ulcers or subcutaneous nodules Psych: Appropriate affect, alert and oriented to person, place and time. Neuro: alert and oriented x 3. Moving all extermities Lines: No CVL / PICC - Constitutional Vitals: Vital Signs Temp Pulse Resp BP Pulse Ox 98.1 F 99 H 20 98/69 91 06/15/17 10:28 06/15/17 10:28 06/15/17 10:28 06/15/17 10:28 06/15/17 10:28 Temperature -Last 24 Hours Temperature 98.1 F Temperature 98.4 F Temperature 98.2 F Temperature 101.7 F Temperature 102.9 F Results - Labs CBC & Chem 7: 06/14/17 14:48 06/14/17 14:48 Labs: Abnormal lab results 06/15/17 Range/Units Unknown Urine WBC (Auto) > 182.0 H (0.0-6.0) /HPF Assessment and Plan Assessment: 1) SIRS: Present on admission, manifested by fever, leukocytosis. Etiology unclear. Ddx: recurrent pneumonia / common cold / CHF exacerbation 2) CHF 3)Weight loss 4) Recent admission in Apr 2017 with pneumonia and CHF EF 15% Plan: -obtain CT chest -follow-up blood cultures -obtain respiratory cultures, procalcitonin, C-reactive protein (CRP) -check influenza antigen PCR in nasopharinx -check Legionella urine antigen, Streptococcus pneumoniae urine antigen, Mycoplasma serology, Chlamydia pneumophila serology -HIV test-repeat -consult cards and pulmonary Thank you Dr Mcbride for your consultation, will follow up with you. Jennifer Oliveira MD Infectious Diseases Specialist [facility] ([facility]) M [phone] O [phone]
[2017-06-15] MEDS: LOVENOX SUB-Q SCH (18:54)
[2017-06-15] MEDS: ZITHROMAX 500 MG in NACL 0.9% 250ML 250 ML IV SCH (20:48)
--- NOTE | 2017-06-15 23:03 | Cat Scan Report ---
FINAL REPORT PROCEDURE: CT CHEST WO/W CON TECHNIQUE: Computerized axial tomography of the chest was performed during the IV injection of iodinated nonionic contrast. HISTORY: eval for pneumonia, effusion, empyema COMPARISON: 05/02/17 TECHNICAL QUALITY: Satisfactory. FINDINGS: The heart is moderately enlarged. There is ground-glass hazy infiltrative pattern in the periphery of the left lower lung left perihilar area left upper lung zone with confluent haziness in the parenchyma of the left upper lobe. Hazy infiltrative pattern in the periphery of the right upper and midlung also evident. The heart is moderately enlarged. There is moderate to severe lymphadenopathy mediastinum hilar areas measuring up to 4 x 2 centimeters in the periaortic area 2 x 3 centimeters in the pretracheal region 1.5 x 2 centimeters in the right paratracheal region 1 x 1.5 centimeters in the hilar regions on the left. And 2.5 by 2 centimeters in the right hilar region 2 x 2.5 centimeter sub-carinal streak artifact and motion obscure pulmonary arteries some degree but no definitive or significant PE seen at this time. Extensive adenopathy in the axillary in subclavian areas harshil hepatis. Harshil hepatis adenopathy 1.5 x 2.5 centimeters. Enlarged liver and spleen IMPRESSION: No PE or empyema. Ground-glass patchy airspace infiltrates in the periphery of the left lung and right mid to upper lung zone with consolidative features in the left upper lung zone . Extensive mediastinal greater than hilar and subclavian adenopathy. Rule out entities including but not limited to lymphoproliferative disease is such as lymphoma versus reactive to infectious or inflammatory disease
[2017-06-16] MEDS ORDERED: NACL 0.9% 250ML 250 ML IV ONE (00:43)
[2017-06-16] MEDS: ZOSYN/NS 4.5GM/100ML 4.5 GM/100 ML VIAL IV SCH ×5 (00:50→23:40)
[2017-06-16] MEDS: TYLENOL PO PRN ×3 (00:51→23:40)
[2017-06-16] MEDS: LOVENOX SUB-Q SCH (09:50)
--- NOTE | 2017-06-16 11:49 | Progress Note ---
Assessment and Plan Assessment: 1) SIRS: still fever. Etiology ? common cold / UTI / malignancy 2) Bilateral pneumonia and extensive mediastinal/hilar LNs ? atypical pneumonia ? lymphoma -CT chest showed groundglass patchy airspace disease in periphery of left lung and right lung mid and upper lung with consolidative changes and extensive mediastianal and hilar LNs -CRP=20 -HIV neg x 2 -influenza neg 3) Weight loss 4) Recent admission in Apr 2017 with pneumonia and CHF EF 15% Plan: -Pulmonary eval for possible bronch/biopsy -follow-up blood cultures -follow-up respiratory cultures, procalcitonin, Legionella urine antigen, Streptococcus pneumoniae urine antigen, Mycoplasma serology, Chlamydia pneumophila serology Thank you Dr Saxena for your consultation, will follow up with you. Jennifer Oliveira MD Infectious Diseases Specialist [facility] ([facility]) M [phone] O [phone] Subjective Date of service: 06/16/17 Principal diagnosis: SIRS Interval history: Feels some better still fever 101.2 minimal cough Microbiology: Blood cultures: /2 ngtd Influenza-neg Current Antimicrobials: Zosyn / Azithro Previous Antimicrobials: Objective - Exam Narrative Exam: General appearance: Alert in NAD, conversant Eyes: anicteric sclerae, moist conjunctivae; no lid-lag; PERRLA HENT: Atraumatic; oropharynx clear Neck: Trachea midline; supple, no thyromegaly or lymphadenopathy Lungs: tammi crackles CV: RRR Abdomen: Soft, non-tender; no masses or hepatosplenomegaly Extremities: No peripheral edema or extremity lymphadenopathy Skin: Normal temperature, turgor and texture; no rash, ulcers or subcutaneous nodules Psych: Appropriate affect, alert and oriented to person, place and time. Neuro: alert and oriented x 3. Moving all extermities Lines: No CVL / PICC - Constitutional Vitals: Vital Signs Temp Pulse Resp BP Pulse Ox 97.6 F 96 H 20 100/72 87 06/16/17 08:17 06/16/17 08:17 06/16/17 08:17 06/16/17 08:17 06/16/17 08:17 Temperature -Last 24 Hours Temperature 97.6 F Temperature 99.4 F Temperature 101.2 F Temperature 100.0 F Temperature 98.4 F - Labs CBC & Chem 7: 06/14/17 14:48 06/14/17 14:48 Labs: Abnormal lab results 06/15/17 Range/Units 16:23 C-Reactive Protein 20.30 H (0.00-1.30) mg/dL
[2017-06-16] MEDS ORDERED: PNEUMOVAX 23 IM ONE (12:00)
[2017-06-16 13:01] LABS: Basophils % (Auto) 0.4 % (0.0-1.8); Eosinophils % (Auto) 0.5 % (0.0-4.3); Hematocrit 37.1 % (35.5-45.6); Hemoglobin 12.5 gm/dl (11.8-15.2); Lymphocytes # (Auto) 0.4 K/mm3 (1.2-5.4); Lymphocytes % (Auto) 5.8 % (13.4-35.0); Mean Corpuscular HGB Conc 34 % (32-34); Mean Corpuscular Hemoglobin 29 pg (28-32); Mean Corpuscular Volume 87 fl (84-94); Monocytes # (Auto) 0.5 K/mm3 (0.0-0.8); Monocytes % (Auto) 7.9 % (0.0-7.3); Platelet Count 233 K/mm3 (140-440); Red Blood Count 4.25 M/mm3 (3.65-5.03); Red Cell Distribution Width 13.8 % (13.2-15.2)
[2017-06-16 13:21] LABS: BUN/Creatinine Ratio 28; Blood Urea Nitrogen 22 mg/dL (9-20); Calcium 8.1 mg/dL (8.4-10.2); Hemolysis Index 11
--- NOTE | 2017-06-16 15:31 | Progress Note ---
<RICO ROCHA - Last Filed: 06/16/17 15:22> Assessment and Plan Assessment and plan: 52-year-old man with no medical problem was just discharged from the hospital where was treated for pneumonia. He stated he has completed his course of antibiotic. He returned with complaints of shortness of breath, fever and chest pain in the left chest which she describes as dull pain. Pain is intermittent in nature, lasted for a few minutes, intensity 5/10, no radiation, he cannot identify exacerbating or relieving factors. He complained of a cough productive of white phlegm Sepsis ? UTI ? bilateral PNA, ID following Patient had fever overnight Will continue Zosyn for now, urine culture shows gram neg rods blood culture pending Bilateral pneumonia and extensive mediastinal/hilar LNs -CT chest showed groundglass patchy airspace disease in periphery of left lung and right lung mid and upper lung with consolidative changes and extensive mediastianal and hilar LNs Pulmonology consulted DVT prophylaxis Lovenox History Interval history: Patient was seen and examined. He is in no acute distress. He denies chest pain, shortness of breath, nausea, vomiting. Nursing notes and labs reviewed. Hospitalist Physical - Constitutional Vitals: Temp Pulse Resp BP Pulse Ox 97.6 F 96 H 20 100/72 87 06/16/17 08:17 06/16/17 08:17 06/16/17 08:17 06/16/17 08:17 06/16/17 08:17 General appearance: Present: no acute distress - EENT Eyes: Present: PERRL, EOM intact ENT: hearing intact, clear oral mucosa - Neck Neck: Present: supple, normal ROM - Respiratory Respiratory effort: normal Respiratory: bilateral: CTA - Cardiovascular Rhythm: regular Heart Sounds: Present: S1 & S2 - Extremities Extremities: no ischemia, No edema Peripheral Pulses: within normal limits - Abdominal General gastrointestinal: soft, non-tender - Integumentary Integumentary: Present: clear, warm - Psychiatric Psychiatric: appropriate mood/affect, cooperative - Neurologic Neurologic: CNII-XII intact, moves all extremities - Allied Health Allied health notes reviewed: nursing Results - Labs CBC & Chem 7: 06/16/17 12:34 06/16/17 12:34 Labs: Laboratory Last Values WBC 6.1 K/mm3 (4.5-11.0) 06/16/17 12:34 RBC 4.25 M/mm3 (3.65-5.03) 06/16/17 12:34 Hgb 12.5 gm/dl (11.8-15.2) 06/16/17 12:34 Hct 37.1 % (35.5-45.6) 06/16/17 12:34 MCV 87 fl (84-94) 06/16/17 12:34 MCH 29 pg (28-32) 06/16/17 12:34 MCHC 34 % (32-34) 06/16/17 12:34 RDW 13.8 % (13.2-15.2) 06/16/17 12:34 Plt Count 233 K/mm3 (140-440) 06/16/17 12:34 Lymph % (Auto) 5.8 % (13.4-35.0) L 06/16/17 12:34 [place] % (Auto) 7.9 % (0.0-7.3) H 06/16/17 12:34 Eos % (Auto) 0.5 % (0.0-4.3) 06/16/17 12:34 Baso % (Auto) 0.4 % (0.0-1.8) 06/16/17 12:34 Lymph # 0.4 K/mm3 (1.2-5.4) L 06/16/17 12:34 [place] # 0.5 K/mm3 (0.0-0.8) 06/16/17 12:34 Eos # 0.0 K/mm3 (0.0-0.4) 06/16/17 12:34 Baso # 0.0 K/mm3 (0.0-0.1) 06/16/17 12:34 Seg Neutrophils % 85.4 % (40.0-70.0) H 06/16/17 12:34 Seg Neutrophils # 5.2 K/mm3 (1.8-7.7) 06/16/17 12:34 Sodium 138 mmol/L (137-145) 06/16/17 12:34 Potassium 4.3 mmol/L (3.6-5.0) 06/16/17 12:34 Chloride 97.1 mmol/L (98-107) L 06/16/17 12:34 Carbon Dioxide 28 mmol/L (22-30) 06/16/17 12:34 Anion Gap 17 mmol/L 06/16/17 12:34 BUN 22 mg/dL (9-20) H 06/16/17 12:34 Creatinine 0.8 mg/dL (0.8-1.5) 06/16/17 12:34 Estimated GFR > 60 ml/min 06/16/17 12:34 BUN/Creatinine Ratio 28 % 06/16/17 12:34 Glucose 95 mg/dL (75-100) 06/16/17 12:34 Calcium 8.1 mg/dL (8.4-10.2) L 06/16/17 12:34 Total Creatine Kinase 144 units/L (55-170) 06/15/17 03:01 CK-MB (CK-2) 1.4 ng/mL (0.0-4.0) 06/15/17 03:01 CK-MB (CK-2) Rel Index 0.9 (0-4) 06/15/17 03:01 Troponin T 0.019 ng/mL (0.00-0.029) 06/15/17 03:01 C-Reactive Protein 20.30 mg/dL (0.00-1.30) H 06/15/17 16:23 Urine Color [place] (Yellow) 06/15/17 Unknown Urine Turbidity Turbid (Clear) 06/15/17 Unknown Urine pH 5.0 (5.0-7.0) 06/15/17 Unknown Ur Specific [place] 1.025 (1.003-1.030) 06/15/17 Unknown Urine Protein 100 mg/dl mg/dL (Negative) 06/15/17 Unknown Urine Glucose (UA) Neg mg/dL (Negative) 06/15/17 Unknown Urine Ketones Neg mg/dL (Negative) 06/15/17 Unknown Urine Blood Mod (Negative) 06/15/17 Unknown Urine Nitrite Neg (Negative) 06/15/17 Unknown Urine Bilirubin Sm (Negative) 06/15/17 Unknown Urine Ictotest Negative (Negative) 06/15/17 Unknown Urine Urobilinogen 4.0 mg/dL (<2.0) 06/15/17 Unknown Ur Leukocyte Esterase Mod (Negative) 06/15/17 Unknown Urine WBC (Auto) > 182.0 /HPF (0.0-6.0) H 06/15/17 Unknown Urine RBC (Auto) 28.0 /HPF (0.0-6.0) 06/15/17 Unknown U Epithel Cells (Auto) 2.0 /HPF (0-13.0) 06/15/17 Unknown Ur Transition Epith Cell 1 /HPF 06/15/17 Unknown Urine Mucus 3+ /HPF 06/15/17 Unknown HIV 1&2 Antibody Rapid Non react (Non React) 06/15/17 16:23 HIV P24 Antigen Non react (Non React) 06/15/17 16:23 - Imaging and Cardiology CT scan - chest: report reviewed <MELCHOR CLEMENTE - Last Filed: 06/18/17 00:35> Assessment and Plan Assessment and plan: I saw and evaluated the patient. I agree with the findings and the plan of care as documented in the Nurse Practitioner's~note, with the following corrections and additions. Patient with sepsis due to UTI, Pneumonia. ID Physician following. Hospitalist Physical - Constitutional Vitals: Temp Pulse Resp BP Pulse Ox 97.9 F 113 H 22 103/72 100 06/17/17 16:06 06/17/17 16:06 06/17/17 21:50 06/17/17 16:06 06/17/17 21:35 Results - Labs CBC & Chem 7: 06/16/17 12:34 06/16/17 12:34 Labs: Laboratory Last Values WBC 6.1 K/mm3 (4.5-11.0) 06/16/17 12:34 RBC 4.25 M/mm3 (3.65-5.03) 06/16/17 12:34 Hgb 12.5 gm/dl (11.8-15.2) 06/16/17 12:34 Hct 37.1 % (35.5-45.6) 06/16/17 12:34 MCV 87 fl (84-94) 06/16/17 12:34 MCH 29 pg (28-32) 06/16/17 12:34 MCHC 34 % (32-34) 06/16/17 12:34 RDW 13.8 % (13.2-15.2) 06/16/17 12:34 Plt Count 233 K/mm3 (140-440) 06/16/17 12:34 Lymph % (Auto) 5.8 % (13.4-35.0) L 06/16/17 12:34 [place] % (Auto) 7.9 % (0.0-7.3) H 06/16/17 12:34 Eos % (Auto) 0.5 % (0.0-4.3) 06/16/17 12:34 Baso % (Auto) 0.4 % (0.0-1.8) 06/16/17 12:34 Lymph # 0.4 K/mm3 (1.2-5.4) L 06/16/17 12:34 [place] # 0.5 K/mm3 (0.0-0.8) 06/16/17 12:34 Eos # 0.0 K/mm3 (0.0-0.4) 06/16/17 12:34 Baso # 0.0 K/mm3 (0.0-0.1) 06/16/17 12:34 Seg Neutrophils % 85.4 % (40.0-70.0) H 06/16/17 12:34 Seg Neutrophils # 5.2 K/mm3 (1.8-7.7) 06/16/17 12:34 Sodium 138 mmol/L (137-145) 06/16/17 12:34 Potassium 4.3 mmol/L (3.6-5.0) 06/16/17 12:34 Chloride 97.1 mmol/L (98-107) L 06/16/17 12:34 Carbon Dioxide 28 mmol/L (22-30) 06/16/17 12:34 Anion Gap 17 mmol/L 06/16/17 12:34 BUN 22 mg/dL (9-20) H 06/16/17 12:34 Creatinine 0.8 mg/dL (0.8-1.5) 06/16/17 12:34 Estimated GFR > 60 ml/min 06/16/17 12:34 BUN/Creatinine Ratio 28 % 06/16/17 12:34 Glucose 95 mg/dL (75-100) 06/16/17 12:34 Calcium 8.1 mg/dL (8.4-10.2) L 06/16/17 12:34 Total Creatine Kinase 144 units/L (55-170) 06/15/17 03:01 CK-MB (CK-2) 1.4 ng/mL (0.0-4.0) 06/15/17 03:01 CK-MB (CK-2) Rel Index 0.9 (0-4) 06/15/17 03:01 Troponin T 0.019 ng/mL (0.00-0.029) 06/15/17 03:01 C-Reactive Protein 20.30 mg/dL (0.00-1.30) H 06/15/17 16:23 NT-Pro-B Natriuret Pep 2349 pg/mL (0-900) H 06/16/17 12:34 Urine Color [place] (Yellow) 06/15/17 Unknown Urine Turbidity Turbid (Clear) 06/15/17 Unknown Urine pH 5.0 (5.0-7.0) 06/15/17 Unknown Ur Specific [place] 1.025 (1.003-1.030) 06/15/17 Unknown Urine Protein 100 mg/dl mg/dL (Negative) 06/15/17 Unknown Urine Glucose (UA) Neg mg/dL (Negative) 06/15/17 Unknown Urine Ketones Neg mg/dL (Negative) 06/15/17 Unknown Urine Blood Mod (Negative) 06/15/17 Unknown Urine Nitrite Neg (Negative) 06/15/17 Unknown Urine Bilirubin Sm (Negative) 06/15/17 Unknown Urine Ictotest Negative (Negative) 06/15/17 Unknown Urine Urobilinogen 4.0 mg/dL (<2.0) 06/15/17 Unknown Ur Leukocyte Esterase Mod (Negative) 06/15/17 Unknown Urine WBC (Auto) > 182.0 /HPF (0.0-6.0) H 06/15/17 Unknown Urine RBC (Auto) 28.0 /HPF (0.0-6.0) 06/15/17 Unknown U Epithel Cells (Auto) 2.0 /HPF (0-13.0) 06/15/17 Unknown Ur Transition Epith Cell 1 /HPF 06/15/17 Unknown Urine Mucus 3+ /HPF 06/15/17 Unknown HIV 1&2 Antibody Rapid Non react (Non React) 06/15/17 16:23 HIV P24 Antigen Non react (Non React) 06/15/17 16:23 Mycoplasma pneumon IgG 4.47 (<=0.90) H 06/15/17 16:23 Mycoplasma pneumon IgM 71 U/mL (<770) 06/15/17 16:23
[2017-06-16] MEDS: ZITHROMAX 500 MG in NACL 0.9% 250ML 250 ML IV SCH (17:52)
[2017-06-17] MEDS: ZOSYN/NS 4.5GM/100ML 4.5 GM/100 ML VIAL IV SCH (09:31)
[2017-06-17] MEDS: LOVENOX SUB-Q SCH (09:32)
--- NOTE | 2017-06-17 12:52 | Progress Note ---
Assessment and Plan Assessment: 1) SIRS: still fever. Etiology ? common cold / UTI / malignancy / sarcoidosis 2) Bilateral pneumonia and extensive mediastinal/hilar LNs ? atypical pneumonia ? lymphoma -CT chest showed groundglass patchy airspace disease in periphery of left lung and right lung mid and upper lung with consolidative changes and extensive mediastianal and hilar LNs -CRP=20 -HIV neg x 2 -influenza neg 3) Weight loss 4) Recent admission in Apr 2017 with pneumonia and CHF EF 15% Plan: -Pulmonary eval for possible bronch/biopsy -check REBECCA, SHIRLENE, ANCA -follow-up blood cultures -follow-up respiratory cultures, procalcitonin, Legionella urine antigen, Streptococcus pneumoniae urine antigen, Mycoplasma serology, Chlamydia pneumophila serology I will be covering 06/18 and I willbe off on 06/19, but available over the phone, please call me for questions. Thank you Dr Saxena for your consultation, will follow up with you. Jennifer Oliveira MD Infectious Diseases Specialist [facility] ([facility]) M [phone] O [phone] Subjective Date of service: 06/17/17 Principal diagnosis: SIRS Interval history: Feels some better still coughing and fever 102.3 Microbiology: Blood cultures: 06/14 ngtd Influenza-neg Urine cx: GNR Current Antimicrobials: Zosyn 06/15 Azithro Previous Antimicrobials: Objective - Exam Narrative Exam: General appearance: Alert in NAD, conversant Eyes: anicteric sclerae, moist conjunctivae; no lid-lag; PERRLA HENT: Atraumatic; oropharynx clear Neck: Trachea midline; supple, no thyromegaly or lymphadenopathy Lungs: tammi crackles CV: RRR Abdomen: Soft, non-tender; no masses or hepatosplenomegaly Extremities: No peripheral edema or extremity lymphadenopathy Skin: Normal temperature, turgor and texture; no rash, ulcers or subcutaneous nodules Psych: Appropriate affect, alert and oriented to person, place and time. Neuro: alert and oriented x 3. Moving all extermities Lines: No CVL / PICC - Constitutional Vitals: Vital Signs Temp Pulse Resp BP Pulse Ox 98.3 F 106 H 19 107/77 95 06/17/17 07:23 06/17/17 07:23 06/17/17 07:23 06/17/17 07:23 06/17/17 07:23 Temperature -Last 24 Hours Temperature 98.3 F Temperature 98.6 F Temperature 102.3 F Temperature 98.9 F - Labs CBC & Chem 7: 06/16/17 12:34 06/16/17 12:34 Labs: Abnormal lab results 06/16/17 06/16/17 06/16/17 Range/Units 12:34 12:34 12:34 Lymph % (Auto) 5.8 L (13.4-35.0) % [place] % (Auto) 7.9 H (0.0-7.3) % Lymph # 0.4 L (1.2-5.4) K/mm3 Seg Neutrophils % 85.4 H (40.0-70.0) % Chloride 97.1 L (98-107) mmol/L BUN 22 H (9-20) mg/dL Calcium 8.1 L (8.4-10.2) mg/dL NT-Pro-B Natriuret Pep 2349 H (0-900) pg/mL
--- NOTE | 2017-06-17 13:36 | Progress Note ---
<RICO ROCHA - Last Filed: 06/17/17 13:13> Assessment and Plan Assessment and plan: 52-year-old man with no medical problem was just discharged from the hospital where was treated for pneumonia. He stated he has completed his course of antibiotic. He returned with complaints of shortness of breath, fever and chest pain in the left chest which she describes as dull pain. Pain is intermittent in nature, lasted for a few minutes, intensity 5/10, no radiation, he cannot identify exacerbating or relieving factors. He complained of a cough productive of white phlegm. Sepsis ? UTI ? bilateral PNA Improving, Leukocytosis resolved today Will continue Zosyn for now, urine culture shows gram neg rods blood culture pending ID following checking - REBECCA, SHIRLENE, ANCA Bilateral pneumonia and extensive mediastinal/hilar LNs -CT chest showed groundglass patchy airspace disease in periphery of left lung and right lung mid and upper lung with consolidated changes and extensive mediastianal and hilar LNs Pulmonology consulted UTI Continue abx DVT prophylaxis Lovenox History Interval history: Patient was seen and examined. He is in no acute distress. He denies chest pain, shortness of breath, nausea, vomiting. Nursing notes and labs reviewed. Hospitalist Physical - Constitutional Vitals: Temp Pulse Resp BP Pulse Ox 98.3 F 106 H 19 107/77 95 06/17/17 07:23 06/17/17 07:23 06/17/17 07:23 06/17/17 07:23 06/17/17 07:23 General appearance: Present: no acute distress, well-nourished - EENT Eyes: Present: PERRL, EOM intact ENT: hearing intact, clear oral mucosa - Neck Neck: Present: supple, normal ROM - Respiratory Respiratory effort: normal Respiratory: bilateral: CTA - Cardiovascular Rhythm: regular Heart Sounds: Present: S1 & S2 - Extremities Extremities: no ischemia, No edema Peripheral Pulses: within normal limits - Abdominal General gastrointestinal: soft, non-tender - Integumentary Integumentary: Present: clear, warm, dry - Psychiatric Psychiatric: appropriate mood/affect, cooperative - Neurologic Neurologic: CNII-XII intact, moves all extremities - Allied Health Allied health notes reviewed: nursing Results - Labs CBC & Chem 7: 06/16/17 12:34 06/16/17 12:34 Labs: Laboratory Last Values WBC 6.1 K/mm3 (4.5-11.0) 06/16/17 12:34 RBC 4.25 M/mm3 (3.65-5.03) 06/16/17 12:34 Hgb 12.5 gm/dl (11.8-15.2) 06/16/17 12:34 Hct 37.1 % (35.5-45.6) 06/16/17 12:34 MCV 87 fl (84-94) 06/16/17 12:34 MCH 29 pg (28-32) 06/16/17 12:34 MCHC 34 % (32-34) 06/16/17 12:34 RDW 13.8 % (13.2-15.2) 06/16/17 12:34 Plt Count 233 K/mm3 (140-440) 06/16/17 12:34 Lymph % (Auto) 5.8 % (13.4-35.0) L 06/16/17 12:34 [place] % (Auto) 7.9 % (0.0-7.3) H 06/16/17 12:34 Eos % (Auto) 0.5 % (0.0-4.3) 06/16/17 12:34 Baso % (Auto) 0.4 % (0.0-1.8) 06/16/17 12:34 Lymph # 0.4 K/mm3 (1.2-5.4) L 06/16/17 12:34 [place] # 0.5 K/mm3 (0.0-0.8) 06/16/17 12:34 Eos # 0.0 K/mm3 (0.0-0.4) 06/16/17 12:34 Baso # 0.0 K/mm3 (0.0-0.1) 06/16/17 12:34 Seg Neutrophils % 85.4 % (40.0-70.0) H 06/16/17 12:34 Seg Neutrophils # 5.2 K/mm3 (1.8-7.7) 06/16/17 12:34 Sodium 138 mmol/L (137-145) 06/16/17 12:34 Potassium 4.3 mmol/L (3.6-5.0) 06/16/17 12:34 Chloride 97.1 mmol/L (98-107) L 06/16/17 12:34 Carbon Dioxide 28 mmol/L (22-30) 06/16/17 12:34 Anion Gap 17 mmol/L 06/16/17 12:34 BUN 22 mg/dL (9-20) H 06/16/17 12:34 Creatinine 0.8 mg/dL (0.8-1.5) 06/16/17 12:34 Estimated GFR > 60 ml/min 06/16/17 12:34 BUN/Creatinine Ratio 28 % 06/16/17 12:34 Glucose 95 mg/dL (75-100) 06/16/17 12:34 Calcium 8.1 mg/dL (8.4-10.2) L 06/16/17 12:34 Total Creatine Kinase 144 units/L (55-170) 06/15/17 03:01 CK-MB (CK-2) 1.4 ng/mL (0.0-4.0) 06/15/17 03:01 CK-MB (CK-2) Rel Index 0.9 (0-4) 06/15/17 03:01 Troponin T 0.019 ng/mL (0.00-0.029) 06/15/17 03:01 C-Reactive Protein 20.30 mg/dL (0.00-1.30) H 06/15/17 16:23 NT-Pro-B Natriuret Pep 2349 pg/mL (0-900) H 06/16/17 12:34 Urine Color [place] (Yellow) 06/15/17 Unknown Urine Turbidity Turbid (Clear) 06/15/17 Unknown Urine pH 5.0 (5.0-7.0) 06/15/17 Unknown Ur Specific [place] 1.025 (1.003-1.030) 06/15/17 Unknown Urine Protein 100 mg/dl mg/dL (Negative) 06/15/17 Unknown Urine Glucose (UA) Neg mg/dL (Negative) 06/15/17 Unknown Urine Ketones Neg mg/dL (Negative) 06/15/17 Unknown Urine Blood Mod (Negative) 06/15/17 Unknown Urine Nitrite Neg (Negative) 06/15/17 Unknown Urine Bilirubin Sm (Negative) 06/15/17 Unknown Urine Ictotest Negative (Negative) 06/15/17 Unknown Urine Urobilinogen 4.0 mg/dL (<2.0) 06/15/17 Unknown Ur Leukocyte Esterase Mod (Negative) 06/15/17 Unknown Urine WBC (Auto) > 182.0 /HPF (0.0-6.0) H 06/15/17 Unknown Urine RBC (Auto) 28.0 /HPF (0.0-6.0) 06/15/17 Unknown U Epithel Cells (Auto) 2.0 /HPF (0-13.0) 06/15/17 Unknown Ur Transition Epith Cell 1 /HPF 06/15/17 Unknown Urine Mucus 3+ /HPF 06/15/17 Unknown HIV 1&2 Antibody Rapid Non react (Non React) 06/15/17 16:23 HIV P24 Antigen Non react (Non React) 06/15/17 16:23 <MELCHOR CLEMENTE O - Last Filed: 06/18/17 00:36> Assessment and Plan Assessment and plan: I saw and evaluated the patient. I agree with the findings and the plan of care as documented in the Nurse Practitioner's~note, with the following corrections and additions. Patient with Sepsis due to UTI, Pneumonia. he was evaluated by Pul Hospitalist Physical - Constitutional Vitals: Temp Pulse Resp BP Pulse Ox 97.9 F 113 H 22 103/72 100 06/17/17 16:06 06/17/17 16:06 06/17/17 21:50 06/17/17 16:06 06/17/17 21:35 Results - Labs CBC & Chem 7: 06/16/17 12:34 06/16/17 12:34 Labs: Laboratory Last Values WBC 6.1 K/mm3 (4.5-11.0) 06/16/17 12:34 RBC 4.25 M/mm3 (3.65-5.03) 06/16/17 12:34 Hgb 12.5 gm/dl (11.8-15.2) 06/16/17 12:34 Hct 37.1 % (35.5-45.6) 06/16/17 12:34 MCV 87 fl (84-94) 06/16/17 12:34 MCH 29 pg (28-32) 06/16/17 12:34 MCHC 34 % (32-34) 06/16/17 12:34 RDW 13.8 % (13.2-15.2) 06/16/17 12:34 Plt Count 233 K/mm3 (140-440) 06/16/17 12:34 Lymph % (Auto) 5.8 % (13.4-35.0) L 06/16/17 12:34 [place] % (Auto) 7.9 % (0.0-7.3) H 06/16/17 12:34 Eos % (Auto) 0.5 % (0.0-4.3) 06/16/17 12:34 Baso % (Auto) 0.4 % (0.0-1.8) 06/16/17 12:34 Lymph # 0.4 K/mm3 (1.2-5.4) L 06/16/17 12:34 [place] # 0.5 K/mm3 (0.0-0.8) 06/16/17 12:34 Eos # 0.0 K/mm3 (0.0-0.4) 06/16/17 12:34 Baso # 0.0 K/mm3 (0.0-0.1) 06/16/17 12:34 Seg Neutrophils % 85.4 % (40.0-70.0) H 06/16/17 12:34 Seg Neutrophils # 5.2 K/mm3 (1.8-7.7) 06/16/17 12:34 Sodium 138 mmol/L (137-145) 06/16/17 12:34 Potassium 4.3 mmol/L (3.6-5.0) 06/16/17 12:34 Chloride 97.1 mmol/L (98-107) L 06/16/17 12:34 Carbon Dioxide 28 mmol/L (22-30) 06/16/17 12:34 Anion Gap 17 mmol/L 06/16/17 12:34 BUN 22 mg/dL (9-20) H 06/16/17 12:34 Creatinine 0.8 mg/dL (0.8-1.5) 06/16/17 12:34 Estimated GFR > 60 ml/min 06/16/17 12:34 BUN/Creatinine Ratio 28 % 06/16/17 12:34 Glucose 95 mg/dL (75-100) 06/16/17 12:34 Calcium 8.1 mg/dL (8.4-10.2) L 06/16/17 12:34 Total Creatine Kinase 144 units/L (55-170) 06/15/17 03:01 CK-MB (CK-2) 1.4 ng/mL (0.0-4.0) 06/15/17 03:01 CK-MB (CK-2) Rel Index 0.9 (0-4) 06/15/17 03:01 Troponin T 0.019 ng/mL (0.00-0.029) 06/15/17 03:01 C-Reactive Protein 20.30 mg/dL (0.00-1.30) H 06/15/17 16:23 NT-Pro-B Natriuret Pep 2349 pg/mL (0-900) H 06/16/17 12:34 Urine Color [place] (Yellow) 06/15/17 Unknown Urine Turbidity Turbid (Clear) 06/15/17 Unknown Urine pH 5.0 (5.0-7.0) 06/15/17 Unknown Ur Specific [place] 1.025 (1.003-1.030) 06/15/17 Unknown Urine Protein 100 mg/dl mg/dL (Negative) 06/15/17 Unknown Urine Glucose (UA) Neg mg/dL (Negative) 06/15/17 Unknown Urine Ketones Neg mg/dL (Negative) 06/15/17 Unknown Urine Blood Mod (Negative) 06/15/17 Unknown Urine Nitrite Neg (Negative) 06/15/17 Unknown Urine Bilirubin Sm (Negative) 06/15/17 Unknown Urine Ictotest Negative (Negative) 06/15/17 Unknown Urine Urobilinogen 4.0 mg/dL (<2.0) 06/15/17 Unknown Ur Leukocyte Esterase Mod (Negative) 06/15/17 Unknown Urine WBC (Auto) > 182.0 /HPF (0.0-6.0) H 06/15/17 Unknown Urine RBC (Auto) 28.0 /HPF (0.0-6.0) 06/15/17 Unknown U Epithel Cells (Auto) 2.0 /HPF (0-13.0) 06/15/17 Unknown Ur Transition Epith Cell 1 /HPF 06/15/17 Unknown Urine Mucus 3+ /HPF 06/15/17 Unknown HIV 1&2 Antibody Rapid Non react (Non React) 06/15/17 16:23 HIV P24 Antigen Non react (Non React) 06/15/17 16:23 Mycoplasma pneumon IgG 4.47 (<=0.90) H 06/15/17 16:23 Mycoplasma pneumon IgM 71 U/mL (<770) 06/15/17 16:23
--- NOTE | 2017-06-17 14:32 | Consultation ---
History of Present Illness Consult date: 06/17/17 Requesting physician: MELCHOR CLEMENTE Reason for consult: abnormal CXR/CT History of present illness: 52 y/o male admitted with cough and progressive worsening shortness of breath. Pulmonology consulted based off recommendations of ID for possible bronch with biopsy. Pleasant male, nonsmoker, former drinker who has had a chronic cough per family in room since April. Patient states that was the beginning of symptoms and he has progressively gotten more short of breath. Denies any chest pain. No hemoptysis. No sick contacts. No recent travel. No new medications. He has lived in [place], [place] and [place]. 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 He has never been exposed to silica or asbestos. No chronic lung diseases in family. No new rashes. Per patient, no other medical problems. Past History Past Surgical History: No surgical history Social history: no significant social history Medications and Allergies Allergies Allergy/AdvReac Type Severity Reaction Status Date / Time No Known Allergies Allergy Verified 04/29/15 01:38 Home Medications Medication Instructions Recorded Confirmed Last Taken Type Carvedilol [Coreg] 3.125 mg PO BID 06/15/17 06/15/17 06/14/17 History Lisinopril [Zestril TAB] 2.5 mg PO DAILY 06/15/17 06/15/17 06/14/17 History Active Meds: Active Medications Acetaminophen (Tylenol) 650 mg PO Q4H PRN PRN Reason: Pain MILD(1-3)/Fever >100.5/GARCIA Last Admin: 06/16/17 23:40 Dose: 650 mg Bisacodyl (Dulcolax) 10 mg MO QDAY PRN PRN Reason: Constipation unrelieved by MOM Enoxaparin Sodium (Lovenox) 40 mg SUB-Q QDAY [facility] Last Admin: 06/17/17 09:32 Dose: 40 mg Piperacillin Sod/Tazobactam Sod (Zosyn/Ns 4.5gm/100ml) 4.5 gm in 100 mls @ 200 mls/hr IV Q8H KRISSY PRN Reason: Protocol Last Admin: 06/17/17 09:31 Dose: 200 mls/hr Azithromycin 500 mg/ Sodium (Chloride) 250 mls @ 250 mls/hr IV Q24H [facility] Last Admin: 06/16/17 17:52 Dose: 250 mls/hr Magnesium Hydroxide (Milk Of Magnesia) 30 ml PO Q4H PRN PRN Reason: Constipation Ondansetron HCl (Zofran) 4 mg IV Q8H PRN PRN Reason: N/V unrelieved by Reglan Review of Systems All systems: negative Physical Examination Vital signs: Vital Signs Temp Pulse Resp BP Pulse Ox 100.8 F H 51 L 22 136/93 97 06/14/17 14:26 06/14/17 14:26 06/14/17 14:26 06/14/17 14:26 06/14/17 14:26 General appearance: no acute distress, alert, appears uncomfortable Eyes: non-icteric ENT: oropharynx moist Neck: supple, no lymphadenopathy Effort: normal Ascultation: Bilateral: diminished breath sounds, rales Percussion: Bilateral: not dull Tactile fremitus: Bilateral: normal Cardiovascular: regular rate and rhythm Gastrointestinal: normoactive bowel sounds Integumentary: normal Extremities: no cyanosis, no edema, pink and warm, pulses normal Results - Laboratory Findings CBC and BMP: 06/16/17 12:34 06/16/17 12:34 Abnormal lab findings: Abnormal Labs 06/14/17 06/14/17 06/15/17 14:48 14:48 16:23 WBC 15.4 H Lymph % (Auto) 6.5 L [place] % (Auto) Lymph # 1.0 L [place] # 1.0 H Seg Neutrophils % 86.7 H Seg Neutrophils # 13.4 H Sodium 135 L Chloride 95.1 L BUN Glucose 151 H Calcium 8.1 L C-Reactive Protein 20.30 H NT-Pro-B Natriuret Pep Urine WBC (Auto) 06/15/17 06/16/17 06/16/17 Unknown 12:34 12:34 WBC Lymph % (Auto) 5.8 L [place] % (Auto) 7.9 H Lymph # 0.4 L [place] # Seg Neutrophils % 85.4 H Seg Neutrophils # Sodium Chloride 97.1 L BUN 22 H Glucose Calcium 8.1 L C-Reactive Protein NT-Pro-B Natriuret Pep Urine WBC (Auto) > 182.0 H 06/16/17 12:34 WBC Lymph % (Auto) [place] % (Auto) Lymph # [place] # Seg Neutrophils % Seg Neutrophils # Sodium Chloride BUN Glucose Calcium C-Reactive Protein NT-Pro-B Natriuret Pep 2349 H Urine WBC (Auto) - Diagnostic Findings CT scan - chest: image reviewed Assessment and Plan 52 y/o male with abnormal CXR and CT of chest 1. Agree with bronchoscopy, doubt that biopsy would be best by us given the diffuse nature of the disease. The most dense regions are in the left upper lobe on the periphery, not sure you would be able to pass the needle up that way. Will perform wash early next week. Spoke with my partner who will be here and they will schedule it on Tuesday, so at the earliest it would be Tuesday. 2. Suggest checking ECHO cardiogram to evaluate for pulmonary hypertension
[2017-06-17] MEDS: MERREM 1,000 MG in NACL 0.9% 100 ML IV SCH ×2 (17:52→21:53)
[2017-06-17] MEDS: TYLENOL PO PRN (22:14)
[2017-06-18] MEDS: MERREM 1,000 MG in NACL 0.9% 100 ML IV SCH ×3 (05:27→21:50)
[2017-06-18] MEDS: LOVENOX SUB-Q SCH (09:02)
--- NOTE | 2017-06-18 11:58 | Progress Note ---
Assessment and Plan Assessment: 1) Sepsis: fever trending down (after adding meropenem). Etiology - UTI / pneumonia / malignancy / sarcoidosis 2) Bilateral pneumonia and extensive mediastinal/hilar LNs ? atypical pneumonia ? lymphoma -CT chest showed groundglass patchy airspace disease in periphery of left lung and right lung mid and upper lung with consolidative changes and extensive mediastianal and hilar LNs -CRP=20 -HIV neg x 2 -influenza neg -mycoplasma IgG positive indicating past infection 3) Weight loss 4) Recent admission in Apr 2017 with pneumonia and CHF EF 15% 5) UTI due to ESBL E coli Plan: -appreciate Pulmonary eval - possible bronch/biopsy next week -contact isolation for ESBL UTI -continue meropenem day 2 of 7 -f/u REBECCA, SHIRLENE, ANCA -follow-up blood cultures -follow-up respiratory cultures, procalcitonin, Legionella urine antigen, Streptococcus pneumoniae urine antigen Chlamydia pneumophila serology I will be off on 06/19, but available over the phone, please call me for questions. Thank you Dr Saxena for your consultation, will follow up with you. Jennifer Oliveira MD Infectious Diseases Specialist [facility] ([facility]) M [phone] O [phone] Subjective Date of service: 06/18/17 Principal diagnosis: SIRS Interval history: Feels some better, cough better and tmax 102.3 Microbiology: Blood cultures: 06/14 ngtd Influenza-neg Urine cx: ESBL E coli Current Antimicrobials: meropenem 06/17 Previous Antimicrobials: Zosyn 06/15 Azithro Objective - Exam Narrative Exam: General appearance: Alert in NAD, conversant Eyes: anicteric sclerae, moist conjunctivae; no lid-lag; PERRLA HENT: Atraumatic; oropharynx clear Neck: Trachea midline; supple, no thyromegaly or lymphadenopathy Lungs: tammi crackles CV: RRR Abdomen: Soft, non-tender; no masses or hepatosplenomegaly Extremities: No peripheral edema or extremity lymphadenopathy Skin: Normal temperature, turgor and texture; no rash, ulcers or subcutaneous nodules Psych: Appropriate affect, alert and oriented to person, place and time. Neuro: alert and oriented x 3. Moving all extermities Lines: No CVL / PICC - Constitutional Vitals: Vital Signs Temp Pulse Resp BP Pulse Ox 98.0 F 58 L 20 98/62 92 01/06/18 07:39 06/18/17 07:39 06/18/17 07:39 06/18/17 07:39 06/18/17 10:00 Temperature -Last 24 Hours Temperature 98.0 F Temperature 98.3 F Temperature 97.9 F - Labs CBC & Chem 7: 06/16/17 12:34 06/16/17 12:34 Labs: Abnormal lab results 06/15/17 Range/Units 16:23 Mycoplasma pneumon IgG 4.47 H (<=0.90)
--- NOTE | 2017-06-18 16:22 | Progress Note ---
Assessment and Plan Assessment and plan: 52-year-old man was just discharged from the hospital where was treated for pneumonia. He stated he has completed his course of antibiotic. He returned with complaints of shortness of breath, fever and chest pain in the left chest which he describes as dull pain. Pain is intermittent in nature, lasted for a few minutes, intensity 5/10, no radiation. He complained of a cough productive of white phlegm. Sepsis due to UTI, bilateral pneumonia Improving, Leukocytosis resolved today Will continue Zosyn for now, urine culture shows gram neg rods blood culture pending ID following Bilateral pneumonia and extensive mediastinal/hilar LNs -CT chest showed ground glass patchy airspace disease in periphery of left lung and right lung mid and upper lung with consolidated changes and extensive mediastianal and hilar LNs Pulmonology following. For bronchoscopy UTI with ESBL E. coli. Started on Merrem by ID Physician. DVT prophylaxis with Lovenox Full code status History Interval history: Feels better, Fever resolving-no fever in 2 days Less cough Hospitalist Physical - Physical exam Narrative exam: GEN APPEARANCE : Not in acute distress, HEENT: Normocephalic, atraumatic NECK : supple, no JVD LUNGS: Bilateral rales, no wheeze HEART: S1 and S2 regular , no murmurs, rubs or gallop ABD: Soft, non tender, non distended, normal bowel sounds EXT: No edema, no clubbing, no cyanosis, NEURO: Awake,alert, oriented x 3, normal speech, no focal signs Psych: Normal mood - Constitutional Vitals: Temp Pulse Resp BP Pulse Ox 98.0 F 58 L 20 98/62 92 06/18/17 07:39 06/18/17 07:39 06/18/17 07:39 06/18/17 07:39 06/18/17 10:00 General appearance: Present: no acute distress, well-nourished Results - Labs CBC & Chem 7: 06/16/17 12:34 06/16/17 12:34 Labs: Laboratory Last Values WBC 6.1 K/mm3 (4.5-11.0) 06/16/17 12:34 RBC 4.25 M/mm3 (3.65-5.03) 06/16/17 12:34 Hgb 12.5 gm/dl (11.8-15.2) 06/16/17 12:34 Hct 37.1 % (35.5-45.6) 06/16/17 12:34 MCV 87 fl (84-94) 06/16/17 12:34 MCH 29 pg (28-32) 06/16/17 12:34 MCHC 34 % (32-34) 06/16/17 12:34 RDW 13.8 % (13.2-15.2) 06/16/17 12:34 Plt Count 233 K/mm3 (140-440) 06/16/17 12:34 Lymph % (Auto) 5.8 % (13.4-35.0) L 06/16/17 12:34 [place] % (Auto) 7.9 % (0.0-7.3) H 06/16/17 12:34 Eos % (Auto) 0.5 % (0.0-4.3) 06/16/17 12:34 Baso % (Auto) 0.4 % (0.0-1.8) 06/16/17 12:34 Lymph # 0.4 K/mm3 (1.2-5.4) L 06/16/17 12:34 [place] # 0.5 K/mm3 (0.0-0.8) 06/16/17 12:34 Eos # 0.0 K/mm3 (0.0-0.4) 06/16/17 12:34 Baso # 0.0 K/mm3 (0.0-0.1) 06/16/17 12:34 Seg Neutrophils % 85.4 % (40.0-70.0) H 06/16/17 12:34 Seg Neutrophils # 5.2 K/mm3 (1.8-7.7) 06/16/17 12:34 Sodium 138 mmol/L (137-145) 06/16/17 12:34 Potassium 4.3 mmol/L (3.6-5.0) 06/16/17 12:34 Chloride 97.1 mmol/L (98-107) L 06/16/17 12:34 Carbon Dioxide 28 mmol/L (22-30) 06/16/17 12:34 Anion Gap 17 mmol/L 06/16/17 12:34 BUN 22 mg/dL (9-20) H 06/16/17 12:34 Creatinine 0.8 mg/dL (0.8-1.5) 06/16/17 12:34 Estimated GFR > 60 ml/min 06/16/17 12:34 BUN/Creatinine Ratio 28 % 06/16/17 12:34 Glucose 95 mg/dL (75-100) 06/16/17 12:34 Calcium 8.1 mg/dL (8.4-10.2) L 06/16/17 12:34 Total Creatine Kinase 144 units/L (55-170) 06/15/17 03:01 CK-MB (CK-2) 1.4 ng/mL (0.0-4.0) 06/15/17 03:01 CK-MB (CK-2) Rel Index 0.9 (0-4) 06/15/17 03:01 Troponin T 0.019 ng/mL (0.00-0.029) 06/15/17 03:01 C-Reactive Protein 20.30 mg/dL (0.00-1.30) H 06/15/17 16:23 NT-Pro-B Natriuret Pep 2349 pg/mL (0-900) H 06/16/17 12:34 Urine Color [place] (Yellow) 06/15/17 Unknown Urine Turbidity Turbid (Clear) 06/15/17 Unknown Urine pH 5.0 (5.0-7.0) 06/15/17 Unknown Ur Specific [place] 1.025 (1.003-1.030) 06/15/17 Unknown Urine Protein 100 mg/dl mg/dL (Negative) 06/15/17 Unknown Urine Glucose (UA) Neg mg/dL (Negative) 06/15/17 Unknown Urine Ketones Neg mg/dL (Negative) 06/15/17 Unknown Urine Blood Mod (Negative) 06/15/17 Unknown Urine Nitrite Neg (Negative) 06/15/17 Unknown Urine Bilirubin Sm (Negative) 06/15/17 Unknown Urine Ictotest Negative (Negative) 06/15/17 Unknown Urine Urobilinogen 4.0 mg/dL (<2.0) 06/15/17 Unknown Ur Leukocyte Esterase Mod (Negative) 06/15/17 Unknown Urine WBC (Auto) > 182.0 /HPF (0.0-6.0) H 06/15/17 Unknown Urine RBC (Auto) 28.0 /HPF (0.0-6.0) 06/15/17 Unknown U Epithel Cells (Auto) 2.0 /HPF (0-13.0) 06/15/17 Unknown Ur Transition Epith Cell 1 /HPF 06/15/17 Unknown Urine Mucus 3+ /HPF 06/15/17 Unknown HIV 1&2 Antibody Rapid Non react (Non React) 06/15/17 16:23 HIV P24 Antigen Non react (Non React) 06/15/17 16:23 Mycoplasma pneumon IgG 4.47 (<=0.90) H 06/15/17 16:23 Mycoplasma pneumon IgM 71 U/mL (<770) 06/15/17 16:23
[2017-06-18] MEDS: TYLENOL PO PRN (21:53)
[2017-06-19] MEDS: MERREM 1,000 MG in NACL 0.9% 100 ML IV SCH ×3 (06:18→21:53)
[2017-06-19] MEDS: LOVENOX SUB-Q SCH (09:46)
--- NOTE | 2017-06-19 14:34 | Event Note ---
Date: 06/19/17 Pulm continues to follow patient. My partner will see tomorrow and figure out a time for biopsy. please DO NOT make patient NPO after midnight as bronch will not take place tomorrow.
--- NOTE | 2017-06-19 15:05 | Progress Note ---
Assessment and Plan Assessment and plan: 52-year-old man was just discharged from the hospital where was treated for pneumonia. He stated he has completed his course of antibiotic. He returned with complaints of shortness of breath, fever and chest pain in the left chest which he describes as dull pain. Pain is intermittent in nature, lasted for a few minutes, intensity 5/10, no radiation. He complained of a cough productive of white phlegm. Sepsis due to UTI, bilateral pneumonia Improving, Leukocytosis resolved today Will continue Zosyn for now, urine culture shows gram neg rods blood culture pending ID following UTI Bilateral pneumonia and extensive mediastinal/hilar LNs -CT chest showed ground glass patchy airspace disease in periphery of left lung and right lung mid and upper lung with consolidated changes and extensive mediastianal and hilar LNs Pulmonology following. For bronchoscopy Mon or Tue UTI with ESBL E. coli. Started on Merrem by ID Physician. Contact isolation DVT prophylaxis with Lovenox Full code status History Interval history: Feels better, Fever resolving-no fever in 3 days Less cough Hospitalist Physical - Physical exam Narrative exam: GEN APPEARANCE : Not in acute distress, HEENT: Normocephalic, atraumatic NECK : supple, no JVD LUNGS: Bilateral rales, no wheeze HEART: S1 and S2 regular , no murmurs, rubs or gallop ABD: Soft, non tender, non distended, normal bowel sounds EXT: No edema, no clubbing, no cyanosis, NEURO: Awake,alert, oriented x 3, normal speech, no focal signs Psych: Normal mood - Constitutional Vitals: Temp Pulse Resp BP Pulse Ox 98.3 F 87 19 141/103 93 06/19/17 07:43 06/19/17 07:43 06/19/17 07:43 06/19/17 07:43 06/19/17 07:43 General appearance: Present: no acute distress, well-nourished Results - Labs CBC & Chem 7: 06/16/17 12:34 06/16/17 12:34 Labs: Laboratory Last Values WBC 6.1 K/mm3 (4.5-11.0) 06/16/17 12:34 RBC 4.25 M/mm3 (3.65-5.03) 06/16/17 12:34 Hgb 12.5 gm/dl (11.8-15.2) 06/16/17 12:34 Hct 37.1 % (35.5-45.6) 06/16/17 12:34 MCV 87 fl (84-94) 06/16/17 12:34 MCH 29 pg (28-32) 06/16/17 12:34 MCHC 34 % (32-34) 06/16/17 12:34 RDW 13.8 % (13.2-15.2) 06/16/17 12:34 Plt Count 233 K/mm3 (140-440) 06/16/17 12:34 Lymph % (Auto) 5.8 % (13.4-35.0) L 06/16/17 12:34 Payne % (Auto) 7.9 % (0.0-7.3) H 06/16/17 12:34 Eos % (Auto) 0.5 % (0.0-4.3) 06/16/17 12:34 Baso % (Auto) 0.4 % (0.0-1.8) 06/16/17 12:34 Lymph # 0.4 K/mm3 (1.2-5.4) L 06/16/17 12:34 Payne # 0.5 K/mm3 (0.0-0.8) 06/16/17 12:34 Eos # 0.0 K/mm3 (0.0-0.4) 06/16/17 12:34 Baso # 0.0 K/mm3 (0.0-0.1) 06/16/17 12:34 Seg Neutrophils % 85.4 % (40.0-70.0) H 06/16/17 12:34 Seg Neutrophils # 5.2 K/mm3 (1.8-7.7) 06/16/17 12:34 Sodium 138 mmol/L (137-145) 06/16/17 12:34 Potassium 4.3 mmol/L (3.6-5.0) 06/16/17 12:34 Chloride 97.1 mmol/L (98-107) L 06/16/17 12:34 Carbon Dioxide 28 mmol/L (22-30) 06/16/17 12:34 Anion Gap 17 mmol/L 06/16/17 12:34 BUN 22 mg/dL (9-20) H 06/16/17 12:34 Creatinine 0.8 mg/dL (0.8-1.5) 06/16/17 12:34 Estimated GFR > 60 ml/min 06/16/17 12:34 BUN/Creatinine Ratio 28 % 06/16/17 12:34 Glucose 95 mg/dL (75-100) 06/16/17 12:34 Calcium 8.1 mg/dL (8.4-10.2) L 06/16/17 12:34 Total Creatine Kinase 144 units/L (55-170) 06/15/17 03:01 CK-MB (CK-2) 1.4 ng/mL (0.0-4.0) 06/15/17 03:01 CK-MB (CK-2) Rel Index 0.9 (0-4) 06/15/17 03:01 Troponin T 0.019 ng/mL (0.00-0.029) 06/15/17 03:01 C-Reactive Protein 20.30 mg/dL (0.00-1.30) H 06/15/17 16:23 NT-Pro-B Natriuret Pep 2349 pg/mL (0-900) H 06/16/17 12:34 Urine Color Mojgan (Yellow) 06/15/17 Unknown Urine Turbidity Turbid (Clear) 06/15/17 Unknown Urine pH 5.0 (5.0-7.0) 06/15/17 Unknown Ur Specific [place] 1.025 (1.003-1.030) 06/15/17 Unknown Urine Protein 100 mg/dl mg/dL (Negative) 06/15/17 Unknown Urine Glucose (UA) Neg mg/dL (Negative) 06/15/17 Unknown Urine Ketones Neg mg/dL (Negative) 06/15/17 Unknown Urine Blood Mod (Negative) 06/15/17 Unknown Urine Nitrite Neg (Negative) 06/15/17 Unknown Urine Bilirubin Sm (Negative) 06/15/17 Unknown Urine Ictotest Negative (Negative) 06/15/17 Unknown Urine Urobilinogen 4.0 mg/dL (<2.0) 06/15/17 Unknown Ur Leukocyte Esterase Mod (Negative) 06/15/17 Unknown Urine WBC (Auto) > 182.0 /HPF (0.0-6.0) H 06/15/17 Unknown Urine RBC (Auto) 28.0 /HPF (0.0-6.0) 06/15/17 Unknown U Epithel Cells (Auto) 2.0 /HPF (0-13.0) 06/15/17 Unknown Ur Transition Epith Cell 1 /HPF 06/15/17 Unknown Urine Mucus 3+ /HPF 06/15/17 Unknown HIV 1&2 Antibody Rapid Non react (Non React) 06/15/17 16:23 HIV P24 Antigen Non react (Non React) 06/15/17 16:23 Mycoplasma pneumon IgG 4.47 (<=0.90) H 06/15/17 16:23 Mycoplasma pneumon IgM 71 U/mL (<770) 06/15/17 16:23 Miscellaneous Test Flexitest 1 06/17/17 20:45
[2017-06-20] MEDS: TYLENOL PO PRN ×2 (00:24→21:50)
[2017-06-20] MEDS: MERREM 1,000 MG in NACL 0.9% 100 ML IV SCH ×3 (05:30→21:44)
--- NOTE | 2017-06-20 09:39 | Progress Note ---
<TAMARA CLEMENS - Last Filed: 06/20/17 12:30> Assessment and Plan Assessment: 1) Sepsis: fever resolved (after adding meropenem). Etiology - UTI / pneumonia / ?malignancy / ?sarcoidosis 2) Bilateral pneumonia and extensive mediastinal/hilar LNs ? atypical pneumonia ? lymphoma -CT chest showed groundglass patchy airspace disease in periphery of left lung and right lung mid and upper lung with consolidative changes and extensive mediastianal and hilar LNs -CRP=20 -HIV neg x 2 -influenza neg -Legionella antigen negative -mycoplasma IgG positive indicating past infection 3) Weight loss 4) Recent admission in Apr 2017 with pneumonia and CHF EF 15% 5) UTI due to ESBL E coli Plan: -appreciate Pulmonary eval - possible bronch/biopsy this week -contact isolation for ESBL UTI -continue meropenem day 4 of 7 -f/u REBECCA, SHIRLENE, ANCA -follow-up blood cultures -follow-up respiratory cultures, procalcitonin, Streptococcus pneumoniae urine antigen Chlamydia pneumophila serology Thank you Dr for your consultation, will follow up with you. Tamara Clemens NP-C for Jennifer Oliveira MD Infectious Diseases Specialist [facility] ([facility]) M [phone] O [phone] Subjective Date of service: 06/20/17 Principal diagnosis: SIRS Interval history: Patient is feeling a lot better today sitting at the side of the bed with at bedside Blod Cultures 1/2-NGTD Influenza-Negative Urine Culture-ESBL E coli Current Antimicrobials Meropenaem 1/5 Previous Antimicrobials Zosybn 1/3 Azithromycin Objective - Constitutional Vitals: Vital Signs Temp Pulse Resp BP Pulse Ox 97.9 F 114 H 16 116/89 96 06/20/17 07:59 06/20/17 07:59 06/20/17 07:59 06/20/17 07:59 06/20/17 07:59 Temperature -Last 24 Hours Temperature 97.9 F Temperature 98.1 F Temperature 98.2 F Temperature 97.4 F General appearance: Present: no acute distress - EENT Eyes: PERRL - Neck Neck: supple - Respiratory Respiratory effort: normal Respiratory: right: diminished - Cardiovascular Rhythm: regular Heart Sounds: Present: S1 & S2 Extremities: pulses intact - Gastrointestinal General gastrointestinal: Present: soft, non-tender - Integumentary Integumentary: clear, warm, dry - Musculoskeletal Musculoskeletal: strength equal bilaterally - Psychiatric Psychiatric: appropriate mood/affect, memory intact - Labs CBC & Chem 7: 06/16/17 12:34 06/16/17 12:34 <JENNIFER BLEDSOE - Last Filed: 06/20/17 15:37> Assessment and Plan I have seen and examined patient with BICYCLE MESSENGER Brandon Clemens, I have reviewed her interval history, physical examinantion, assessment and plan. I agree with her report. Appreciate pulmonary re-ordering REBECCA, SHIRLENE, ANCA, procal. Hopefully he will get lung BAL once clears by cards. Jennifer Delgado MD Objective - Constitutional Vitals: Vital Signs Temp Pulse Resp BP Pulse Ox 97.9 F 114 H 16 116/89 96 06/20/17 07:59 06/20/17 07:59 06/20/17 07:59 06/20/17 07:59 06/20/17 07:59 Temperature -Last 24 Hours Temperature 97.9 F Temperature 98.1 F Temperature 98.2 F - Labs CBC & Chem 7: 06/20/17 14:52 06/16/17 12:34 Labs: Abnormal lab results 06/17/17 Range/Units 14:30 Miscellaneous Test Flexitest 1 H
[2017-06-20] MEDS: LOVENOX SUB-Q SCH (10:48)
--- NOTE | 2017-06-20 10:59 | Progress Note ---
Assessment and Plan Assessment: 1) Sepsis: fever resolved (after adding meropenem). Etiology - UTI / pneumonia / ?malignancy / ?sarcoidosis 2) Bilateral pneumonia and extensive mediastinal/hilar LNs ? atypical pneumonia ? lymphoma -CT chest showed groundglass patchy airspace disease in periphery of left lung and right lung mid and upper lung with consolidative changes and extensive mediastianal and hilar LNs -CRP=20 -HIV neg x 2 -influenza neg -Legionella antigen negative -mycoplasma IgG positive indicating past infection 3) Weight loss 4) Recent admission in Apr 2017 with pneumonia and CHF EF 15% 5) UTI due to ESBL E coli Plan: -appreciate Pulmonary eval - possible bronch/biopsy next week -contact isolation for ESBL UTI -continue meropenem day 4 of 7 -f/u REBECCA, SHIRLENE, ANCA -follow-up blood cultures -follow-up respiratory cultures, procalcitonin, Streptococcus pneumoniae urine antigen Chlamydia pneumophila serology Thank you for your consultation, will follow up with you. Tamara Clemens NP-C for Dr. Delgado Infectious Diseases Specialist [facility] ([facility]) M [phone] O [phone] Subjective Date of service: 06/20/17 Principal diagnosis: SIRS Objective - Constitutional Vitals: Vital Signs Temp Pulse Resp BP Pulse Ox 97.9 F 114 H 16 116/89 96 06/20/17 07:59 06/20/17 07:59 06/20/17 07:59 06/20/17 07:59 06/20/17 07:59 Temperature -Last 24 Hours Temperature 97.9 F Temperature 98.1 F Temperature 98.2 F Temperature 97.4 F - Labs CBC & Chem 7: 06/16/17 12:34 06/16/17 12:34
--- NOTE | 2017-06-20 11:44 | Progress Note ---
<RICO ROCHA - Last Filed: 06/20/17 11:41> Assessment and Plan Assessment and plan: 52-year-old man with no medical problem was just discharged from the hospital where was treated for pneumonia. He stated he has completed his course of antibiotic. He returned with complaints of shortness of breath, fever and chest pain in the left chest which she describes as dull pain. Pain is intermittent in nature, lasted for a few minutes, intensity 5/10, no radiation, he cannot identify exacerbating or relieving factors. He complained of a cough productive of white phlegm. Sepsis due to UTI, bilateral PNA Improving, Leukocytosis resolved today Will continue Zosyn for now, urine culture shows gram neg rods blood culture pending ID following checking - REBECCA, SHIRLENE, ANCA Bilateral pneumonia and extensive mediastinal/hilar LNs -CT chest showed groundglass patchy airspace disease in periphery of left lung and right lung mid and upper lung with consolidated changes and extensive mediastianal and hilar LNs Pulmonology following For bronchoscopy likely tomorrow UTI Continue abx DVT prophylaxis Lovenox Full code status History Interval history: Patient was seen and examined. He is in no acute distress, has a ongoing cough that is unchanged. He denies chest pain, shortness of breath, nausea, vomiting. Nursing notes and labs reviewed. Hospitalist Physical - Constitutional Vitals: Temp Pulse Resp BP Pulse Ox 97.9 F 114 H 16 116/89 96 06/20/17 07:59 06/20/17 07:59 06/20/17 07:59 06/20/17 07:59 06/20/17 07:59 General appearance: Present: no acute distress, well-nourished - EENT Eyes: Present: PERRL, EOM intact ENT: hearing intact, clear oral mucosa - Neck Neck: Present: supple, normal ROM - Respiratory Respiratory effort: normal Respiratory: bilateral: diminished - Cardiovascular Rhythm: regular Heart Sounds: Present: S1 & S2 - Extremities Extremities: no ischemia, No edema - Abdominal General gastrointestinal: soft, non-tender - Integumentary Integumentary: Present: clear, warm, dry - Psychiatric Psychiatric: appropriate mood/affect, cooperative - Neurologic Neurologic: CNII-XII intact, moves all extremities - Allied Health Allied health notes reviewed: nursing Results - Labs CBC & Chem 7: 06/16/17 12:34 06/16/17 12:34 Labs: Laboratory Last Values WBC 6.1 K/mm3 (4.5-11.0) 06/16/17 12:34 RBC 4.25 M/mm3 (3.65-5.03) 06/16/17 12:34 Hgb 12.5 gm/dl (11.8-15.2) 06/16/17 12:34 Hct 37.1 % (35.5-45.6) 06/16/17 12:34 MCV 87 fl (84-94) 06/16/17 12:34 MCH 29 pg (28-32) 06/16/17 12:34 MCHC 34 % (32-34) 06/16/17 12:34 RDW 13.8 % (13.2-15.2) 06/16/17 12:34 Plt Count 233 K/mm3 (140-440) 06/16/17 12:34 Lymph % (Auto) 5.8 % (13.4-35.0) L 06/16/17 12:34 Fisher % (Auto) 7.9 % (0.0-7.3) H 06/16/17 12:34 Eos % (Auto) 0.5 % (0.0-4.3) 06/16/17 12:34 Baso % (Auto) 0.4 % (0.0-1.8) 06/16/17 12:34 Lymph # 0.4 K/mm3 (1.2-5.4) L 06/16/17 12:34 Fisher # 0.5 K/mm3 (0.0-0.8) 06/16/17 12:34 Eos # 0.0 K/mm3 (0.0-0.4) 06/16/17 12:34 Baso # 0.0 K/mm3 (0.0-0.1) 06/16/17 12:34 Seg Neutrophils % 85.4 % (40.0-70.0) H 06/16/17 12:34 Seg Neutrophils # 5.2 K/mm3 (1.8-7.7) 06/16/17 12:34 Sodium 138 mmol/L (137-145) 06/16/17 12:34 Potassium 4.3 mmol/L (3.6-5.0) 01/04/18 12:34 Chloride 97.1 mmol/L (98-107) L 06/16/17 12:34 Carbon Dioxide 28 mmol/L (22-30) 06/16/17 12:34 Anion Gap 17 mmol/L 06/16/17 12:34 BUN 22 mg/dL (9-20) H 06/16/17 12:34 Creatinine 0.8 mg/dL (0.8-1.5) 06/16/17 12:34 Estimated GFR > 60 ml/min 06/16/17 12:34 BUN/Creatinine Ratio 28 % 06/16/17 12:34 Glucose 95 mg/dL (75-100) 06/16/17 12:34 Calcium 8.1 mg/dL (8.4-10.2) L 06/16/17 12:34 Total Creatine Kinase 144 units/L (55-170) 06/15/17 03:01 CK-MB (CK-2) 1.4 ng/mL (0.0-4.0) 06/15/17 03:01 CK-MB (CK-2) Rel Index 0.9 (0-4) 06/15/17 03:01 Troponin T 0.019 ng/mL (0.00-0.029) 06/15/17 03:01 C-Reactive Protein 20.30 mg/dL (0.00-1.30) H 06/15/17 16:23 NT-Pro-B Natriuret Pep 2349 pg/mL (0-900) H 06/16/17 12:34 Urine Color Mojgan (Yellow) 06/15/17 Unknown Urine Turbidity Turbid (Clear) 06/15/17 Unknown Urine pH 5.0 (5.0-7.0) 06/15/17 Unknown Ur Specific [place] 1.025 (1.003-1.030) 06/15/17 Unknown Urine Protein 100 mg/dl mg/dL (Negative) 06/15/17 Unknown Urine Glucose (UA) Neg mg/dL (Negative) 06/15/17 Unknown Urine Ketones Neg mg/dL (Negative) 06/15/17 Unknown Urine Blood Mod (Negative) 06/15/17 Unknown Urine Nitrite Neg (Negative) 06/15/17 Unknown Urine Bilirubin Sm (Negative) 06/15/17 Unknown Urine Ictotest Negative (Negative) 06/15/17 Unknown Urine Urobilinogen 4.0 mg/dL (<2.0) 06/15/17 Unknown Ur Leukocyte Esterase Mod (Negative) 06/15/17 Unknown Urine WBC (Auto) > 182.0 /HPF (0.0-6.0) H 06/15/17 Unknown Urine RBC (Auto) 28.0 /HPF (0.0-6.0) 06/15/17 Unknown U Epithel Cells (Auto) 2.0 /HPF (0-13.0) 06/15/17 Unknown Ur Transition Epith Cell 1 /HPF 06/15/17 Unknown Urine Mucus 3+ /HPF 06/15/17 Unknown HIV 1&2 Antibody Rapid Non react (Non React) 06/15/17 16:23 HIV P24 Antigen Non react (Non React) 06/15/17 16:23 Mycoplasma pneumon IgG 4.47 (<=0.90) H 06/15/17 16:23 Mycoplasma pneumon IgM 71 U/mL (<770) 06/15/17 16:23 Miscellaneous Test Flexitest 1 06/17/17 20:45 <JOEY WILLIAM - Last Filed: 06/20/17 17:44> Assessment and Plan Assessment and plan: I saw and evaluated the patient. I agree with the findings and the plan of care as documented in the Physician Laborer [place] Leaf's~note, with the following corrections and additions. Lung exam still reveals mild crackles bilaterally. Cardiomyopathy possible ischemic Echocardiogram from April 2017 reviewed and reveals ejection fraction of 15- 20% discharge summary at that time indicates that the patient left AGAINST MEDICAL ADVICE despite being advised of the need for cardiac catheterization at that time the CT of the chest did show bilateral pleural pulmonary infiltrates also. We'll obtain cardiology consultation at this time. Hospitalist Physical - Constitutional Vitals: Temp Pulse Resp BP Pulse Ox 98.4 F 121 H 20 134/98 98 06/20/17 15:42 06/20/17 15:42 06/20/17 15:42 06/20/17 15:42 06/20/17 17:28 Results - Labs CBC & Chem 7: 06/20/17 14:52 06/20/17 14:52 Labs: Laboratory Last Values WBC 9.5 K/mm3 (4.5-11.0) 06/20/17 14:52 RBC 4.54 M/mm3 (3.65-5.03) 06/20/17 14:52 Hgb 12.8 gm/dl (11.8-15.2) 06/20/17 14:52 Hct 39.6 % (35.5-45.6) 06/20/17 14:52 MCV 87 fl (84-94) 06/20/17 14:52 MCH 28 pg (28-32) 06/20/17 14:52 MCHC 32 % (32-34) 06/20/17 14:52 RDW 14.4 % (13.2-15.2) 06/20/17 14:52 Plt Count 332 K/mm3 (140-440) 06/20/17 14:52 Lymph % (Auto) 5.8 % (13.4-35.0) L 06/16/17 12:34 Fisher % (Auto) 7.9 % (0.0-7.3) H 06/16/17 12:34 Eos % (Auto) 0.5 % (0.0-4.3) 06/16/17 12:34 Baso % (Auto) 0.4 % (0.0-1.8) 06/16/17 12:34 Lymph # 0.4 K/mm3 (1.2-5.4) L 06/16/17 12:34 Fisher # 0.5 K/mm3 (0.0-0.8) 06/16/17 12:34 Eos # 0.0 K/mm3 (0.0-0.4) 06/16/17 12:34 Baso # 0.0 K/mm3 (0.0-0.1) 06/16/17 12:34 Seg Neutrophils % 85.4 % (40.0-70.0) H 06/16/17 12:34 Seg Neutrophils # 5.2 K/mm3 (1.8-7.7) 06/16/17 12:34 Sodium 137 mmol/L (137-145) 06/20/17 14:52 Potassium 4.8 mmol/L (3.6-5.0) 06/20/17 14:52 Chloride 99.7 mmol/L (98-107) 06/20/17 14:52 Carbon Dioxide 25 mmol/L (22-30) 06/20/17 14:52 Anion Gap 17 mmol/L 06/20/17 14:52 BUN 13 mg/dL (9-20) 06/20/17 14:52 Creatinine 0.5 mg/dL (0.8-1.5) L 06/20/17 14:52 Estimated GFR > 60 ml/min 06/20/17 14:52 BUN/Creatinine Ratio 26 % 06/20/17 14:52 Glucose 143 mg/dL (75-100) H 06/20/17 14:52 Calcium 8.1 mg/dL (8.4-10.2) L 06/20/17 14:52 Total Creatine Kinase 144 units/L (55-170) 06/15/17 03:01 CK-MB (CK-2) 1.4 ng/mL (0.0-4.0) 06/15/17 03:01 CK-MB (CK-2) Rel Index 0.9 (0-4) 06/15/17 03:01 Troponin T 0.019 ng/mL (0.00-0.029) 06/15/17 03:01 C-Reactive Protein 8.60 mg/dL (0.00-1.30) H 06/20/17 14:52 NT-Pro-B Natriuret Pep 2349 pg/mL (0-900) H 06/16/17 12:34 Urine Color [place] (Yellow) 06/15/17 Unknown Urine Turbidity Turbid (Clear) 06/15/17 Unknown Urine pH 5.0 (5.0-7.0) 06/15/17 Unknown Ur Specific [place] 1.025 (1.003-1.030) 06/15/17 Unknown Urine Protein 100 mg/dl mg/dL (Negative) 06/15/17 Unknown Urine Glucose (UA) Neg mg/dL (Negative) 06/15/17 Unknown Urine Ketones Neg mg/dL (Negative) 06/15/17 Unknown Urine Blood Mod (Negative) 06/15/17 Unknown Urine Nitrite Neg (Negative) 06/15/17 Unknown Urine Bilirubin Sm (Negative) 06/15/17 Unknown Urine Ictotest Negative (Negative) 06/15/17 Unknown Urine Urobilinogen 4.0 mg/dL (<2.0) 06/15/17 Unknown Ur Leukocyte Esterase Mod (Negative) 06/15/17 Unknown Urine WBC (Auto) > 182.0 /HPF (0.0-6.0) H 06/15/17 Unknown Urine RBC (Auto) 28.0 /HPF (0.0-6.0) 06/15/17 Unknown U Epithel Cells (Auto) 2.0 /HPF (0-13.0) 06/15/17 Unknown Ur Transition Epith Cell 1 /HPF 06/15/17 Unknown Urine Mucus 3+ /HPF 06/15/17 Unknown HIV 1&2 Antibody Rapid Non react (Non React) 06/15/17 16:23 HIV P24 Antigen Non react (Non React) 06/15/17 16:23 Mycoplasma pneumon IgG 4.47 (<=0.90) H 06/15/17 16:23 Mycoplasma pneumon IgM 71 U/mL (<770) 06/15/17 16:23 Miscellaneous Test Flexitest 1 06/17/17 20:45
--- NOTE | 2017-06-20 13:55 | Progress Note ---
Assessment and Plan Pulmonary infiltrates, pneumonia. Patient with history of pneumonia being treated repeatedly last 2 months with 12 admissions here[address] Review of CT scan films show what appears to be a perivascular groundglass infiltrate initially. This became more diffuse heterogeneous and peripheral in the follow-up scan on Jun 15. Differential is extensive including DAH secondary to pulmonary edema, vascular process, inhalation injury including cocaine. In the setting of adenopathy, sarcoidosis and other consideration although this is less clear. I agree with lymphoma investigation but, this type of infiltrates are unusual for lymphoma Cardiomyopathy UTI History of alcohol abuse THC use, per record notes Recommendations I don not see any REBECCA or CVT workup so we'll order REBECCA, SHIRLENE, CRP,ANCA and anti GBM Procalcitonin Continue antibiotics Agree with need of bronchoscopy with Will ask cardiology to see the patient first due to cardiomyopathy with significant drop in ejection fraction prior to scheduling procedure, preop. Continue oxygen support. Subjective Date of service: 06/20/17 Principal diagnosis: pneumonia, cardiomyopathy, SIRS Interval history: They reported improvement today. He denies cough or expectoration. Detail history shows no heat or hemoptysis or chest pain. He still complains of dyspnea upon exertion week, which has been present for the past 2 months. No edema reported this morning. No fever or chills recently. He denied any kind of toxic exposure including alcohol (although alcohol intake history is noted on history notes). Objective Vital Signs - 12hr 06/20/17 06/20/17 03:01 07:59 Temperature 98.1 F 97.9 F Pulse Rate 108 H 114 H Respiratory 19 16 Rate Blood Pressure 107/73 116/89 O2 Sat by Pulse 92 96 Oximetry Constitutional: no acute distress, alert, appears uncomfortable Eyes: non-icteric ENT: oropharynx moist Neck: supple, no lymphadenopathy Effort: normal Ascultation: Bilateral: diminished breath sounds, rales Percussion: Bilateral: not dull Tactile fremitus: Bilateral: normal Cardiovascular: regular rate and rhythm Gastrointestinal: normoactive bowel sounds Integumentary: normal Extremities: no cyanosis, no edema, pink and warm, pulses normal CBC and BMP: 06/16/17 12:34 06/16/17 12:34 Abnormal lab findings: Abnormal Labs 06/14/17 06/14/17 06/15/17 14:48 14:48 16:23 WBC 15.4 H Lymph % (Auto) 6.5 L [place] % (Auto) Lymph # 1.0 L [place] # 1.0 H Seg Neutrophils % 86.7 H Seg Neutrophils # 13.4 H Sodium 135 L Chloride 95.1 L BUN Glucose 151 H Calcium 8.1 L C-Reactive Protein 20.30 H NT-Pro-B Natriuret Pep Urine WBC (Auto) Mycoplasma pneumon IgG 06/15/17 06/15/17 06/16/17 16:23 Unknown 12:34 WBC Lymph % (Auto) 5.8 L [place] % (Auto) 7.9 H Lymph # 0.4 L [place] # Seg Neutrophils % 85.4 H Seg Neutrophils # Sodium Chloride BUN Glucose Calcium C-Reactive Protein NT-Pro-B Natriuret Pep Urine WBC (Auto) > 182.0 H Mycoplasma pneumon IgG 4.47 H 06/16/17 06/16/17 12:34 12:34 WBC Lymph % (Auto) [place] % (Auto) Lymph # [place] # Seg Neutrophils % Seg Neutrophils # Sodium Chloride 97.1 L BUN 22 H Glucose Calcium 8.1 L C-Reactive Protein NT-Pro-B Natriuret Pep 2349 H Urine WBC (Auto) Mycoplasma pneumon IgG Chest x-ray: report reviewed, image reviewed CT scan - chest: report reviewed, image reviewed
[2017-06-20 15:27] LABS: Hematocrit 39.6 % (35.5-45.6); Hemoglobin 12.8 gm/dl (11.8-15.2); Mean Corpuscular HGB Conc 32 % (32-34); Mean Corpuscular Hemoglobin 28 pg (28-32); Mean Corpuscular Volume 87 fl (84-94); Platelet Count 332 K/mm3 (140-440); Red Blood Count 4.54 M/mm3 (3.65-5.03); Red Cell Distribution Width 14.4 % (13.2-15.2)
[2017-06-20] MEDS ORDERED: HYDROMET PO PRN (15:48)
[2017-06-20 16:28] LABS: BUN/Creatinine Ratio 26; Blood Urea Nitrogen 13 mg/dL (9-20); Calcium 8.1 mg/dL (8.4-10.2); Hemolysis Index 43
[2017-06-21] MEDS ORDERED: PROVENTIL IH PRN (03:09)
[2017-06-21] MEDS: MERREM 1,000 MG in NACL 0.9% 100 ML IV SCH ×3 (06:15→22:44)
--- NOTE | 2017-06-21 08:41 | Progress Note ---
<RICO ROCHA - Last Filed: 06/21/17 14:48> Assessment and Plan Assessment and plan: 52-year-old man with no medical problem was just discharged from the hospital where was treated for pneumonia. He stated he has completed his course of antibiotic. He returned with complaints of shortness of breath, fever and chest pain in the left chest which she describes as dull pain. Pain is intermittent in nature, lasted for a few minutes, intensity 5/10, no radiation, he cannot identify exacerbating or relieving factors. He complained of a cough productive of white phlegm. Sepsis due to UTI, bilateral PNA Improving, Leukocytosis resolved today Will continue Zosyn for now, urine culture shows gram neg rods blood culture pending ID following checking - REBECCA, SHIRLENE, ANCA Bilateral pneumonia and extensive mediastinal/hilar LNs -CT chest showed groundglass patchy airspace disease in periphery of left lung and right lung mid and upper lung with consolidated changes and extensive mediastianal and hilar LNs Pulmonology following For bronchoscopy likely tomorrow Cardiomyopathy Cardiology following - EF 15-20%; ? ETOH induced Patient initiated on home Lisinopril and Coreg, cleared for bronch Sinus tachycardia Cardiology following, Coreg initiated UTI Continue abx Shoulder Pain Shoulder Xray ordered DVT prophylaxis Lovenox Full code status History Interval history: Patient was seen and examined. He is in no acute distress, has a ongoing cough that is unchanged. He complains of left shoulder pain. He denies chest pain, shortness of breath, nausea, vomiting. Nursing notes and labs reviewed. Hospitalist Physical - Constitutional Vitals: Temp Pulse Resp BP Pulse Ox 98.6 F 78 20 141/99 96 06/20/17 19:52 06/21/17 03:35 06/21/17 03:35 06/20/17 19:52 06/20/17 22:25 General appearance: Present: no acute distress - EENT Eyes: Present: PERRL, EOM intact ENT: hearing intact, clear oral mucosa - Neck Neck: Present: supple, normal ROM - Respiratory Respiratory effort: labored (with exertion) Respiratory: bilateral: diminished - Cardiovascular Rhythm: other (sinus tachycardia) Heart Sounds: Present: S1 & S2 - Extremities Extremities: no ischemia, No edema Peripheral Pulses: within normal limits - Abdominal General gastrointestinal: soft, non-tender - Integumentary Integumentary: Present: clear, warm, dry - Psychiatric Psychiatric: appropriate mood/affect, cooperative - Neurologic Neurologic: CNII-XII intact, moves all extremities - Allied Health Allied health notes reviewed: nursing Results - Labs CBC & Chem 7: 06/20/17 14:52 06/20/17 14:52 Labs: Laboratory Last Values WBC 9.5 K/mm3 (4.5-11.0) 06/20/17 14:52 RBC 4.54 M/mm3 (3.65-5.03) 06/20/17 14:52 Hgb 12.8 gm/dl (11.8-15.2) 06/20/17 14:52 Hct 39.6 % (35.5-45.6) 06/20/17 14:52 MCV 87 fl (84-94) 06/20/17 14:52 MCH 28 pg (28-32) 06/20/17 14:52 MCHC 32 % (32-34) 06/20/17 14:52 RDW 14.4 % (13.2-15.2) 06/20/17 14:52 Plt Count 332 K/mm3 (140-440) 06/20/17 14:52 Lymph % (Auto) 5.8 % (13.4-35.0) L 06/16/17 12:34 [place] % (Auto) 7.9 % (0.0-7.3) H 06/16/17 12:34 Eos % (Auto) 0.5 % (0.0-4.3) 06/16/17 12:34 Baso % (Auto) 0.4 % (0.0-1.8) 06/16/17 12:34 Lymph # 0.4 K/mm3 (1.2-5.4) L 06/16/17 12:34 [place] # 0.5 K/mm3 (0.0-0.8) 06/16/17 12:34 Eos # 0.0 K/mm3 (0.0-0.4) 06/16/17 12:34 Baso # 0.0 K/mm3 (0.0-0.1) 06/16/17 12:34 Seg Neutrophils % 85.4 % (40.0-70.0) H 06/16/17 12:34 Seg Neutrophils # 5.2 K/mm3 (1.8-7.7) 06/16/17 12:34 Sodium 137 mmol/L (137-145) 06/20/17 14:52 Potassium 4.8 mmol/L (3.6-5.0) 06/20/17 14:52 Chloride 99.7 mmol/L (98-107) 06/20/17 14:52 Carbon Dioxide 25 mmol/L (22-30) 06/20/17 14:52 Anion Gap 17 mmol/L 06/20/17 14:52 BUN 13 mg/dL (9-20) 06/20/17 14:52 Creatinine 0.5 mg/dL (0.8-1.5) L 06/20/17 14:52 Estimated GFR > 60 ml/min 06/20/17 14:52 BUN/Creatinine Ratio 26 % 06/20/17 14:52 Glucose 143 mg/dL (75-100) H 06/20/17 14:52 Calcium 8.1 mg/dL (8.4-10.2) L 06/20/17 14:52 Total Creatine Kinase 144 units/L (55-170) 06/15/17 03:01 CK-MB (CK-2) 1.4 ng/mL (0.0-4.0) 06/15/17 03:01 CK-MB (CK-2) Rel Index 0.9 (0-4) 06/15/17 03:01 Troponin T 0.019 ng/mL (0.00-0.029) 06/15/17 03:01 C-Reactive Protein 8.60 mg/dL (0.00-1.30) H 06/20/17 14:52 NT-Pro-B Natriuret Pep 2349 pg/mL (0-900) H 06/16/17 12:34 Urine Color [place] (Yellow) 06/15/17 Unknown Urine Turbidity Turbid (Clear) 06/15/17 Unknown Urine pH 5.0 (5.0-7.0) 06/15/17 Unknown Ur Specific Delta 1.025 (1.003-1.030) 06/15/17 Unknown Urine Protein 100 mg/dl mg/dL (Negative) 06/15/17 Unknown Urine Glucose (UA) Neg mg/dL (Negative) 06/15/17 Unknown Urine Ketones Neg mg/dL (Negative) 06/15/17 Unknown Urine Blood Mod (Negative) 06/15/17 Unknown Urine Nitrite Neg (Negative) 06/15/17 Unknown Urine Bilirubin Sm (Negative) 06/15/17 Unknown Urine Ictotest Negative (Negative) 06/15/17 Unknown Urine Urobilinogen 4.0 mg/dL (<2.0) 06/15/17 Unknown Ur Leukocyte Esterase Mod (Negative) 06/15/17 Unknown Urine WBC (Auto) > 182.0 /HPF (0.0-6.0) H 06/15/17 Unknown Urine RBC (Auto) 28.0 /HPF (0.0-6.0) 06/15/17 Unknown U Epithel Cells (Auto) 2.0 /HPF (0-13.0) 06/15/17 Unknown Ur Transition Epith Cell 1 /HPF 06/15/17 Unknown Urine Mucus 3+ /HPF 06/15/17 Unknown HIV 1&2 Antibody Rapid Non react (Non React) 06/15/17 16:23 HIV P24 Antigen Non react (Non React) 06/15/17 16:23 Mycoplasma pneumon IgG 4.47 (<=0.90) H 06/15/17 16:23 Mycoplasma pneumon IgM 71 U/mL (<770) 06/15/17 16:23 Miscellaneous Test Flexitest 1 06/17/17 20:45 <JOEY WILLIAM - Last Filed: 06/21/17 14:58> Assessment and Plan Assessment and plan: I saw and evaluated the patient. I agree with the findings and the plan of care as documented in the Physician Bead Wire Taper's~note, with the following corrections and additions. Acute Cystitis secondary to ECOLI Cardiomyopathy-- Life vest recommended on discharge. Valvular disorder Mod MR/TR Hospitalist Physical - Constitutional Vitals: Temp Pulse Resp BP Pulse Ox 98.3 F 111 H 20 127/92 97 06/21/17 08:35 06/21/17 09:32 06/21/17 09:32 06/21/17 08:35 06/21/17 09:32 Results - Labs CBC & Chem 7: 06/20/17 14:52 06/20/17 14:52 Labs: Laboratory Last Values WBC 9.5 K/mm3 (4.5-11.0) 06/20/17 14:52 RBC 4.54 M/mm3 (3.65-5.03) 06/20/17 14:52 Hgb 12.8 gm/dl (11.8-15.2) 06/20/17 14:52 Hct 39.6 % (35.5-45.6) 06/20/17 14:52 MCV 87 fl (84-94) 06/20/17 14:52 MCH 28 pg (28-32) 06/20/17 14:52 MCHC 32 % (32-34) 06/20/17 14:52 RDW 14.4 % (13.2-15.2) 06/20/17 14:52 Plt Count 332 K/mm3 (140-440) 06/20/17 14:52 Lymph % (Auto) 5.8 % (13.4-35.0) L 06/16/17 12:34 [place] % (Auto) 7.9 % (0.0-7.3) H 06/16/17 12:34 Eos % (Auto) 0.5 % (0.0-4.3) 06/16/17 12:34 Baso % (Auto) 0.4 % (0.0-1.8) 06/16/17 12:34 Lymph # 0.4 K/mm3 (1.2-5.4) L 06/16/17 12:34 [place] # 0.5 K/mm3 (0.0-0.8) 06/16/17 12:34 Eos # 0.0 K/mm3 (0.0-0.4) 06/16/17 12:34 Baso # 0.0 K/mm3 (0.0-0.1) 06/16/17 12:34 Seg Neutrophils % 85.4 % (40.0-70.0) H 06/16/17 12:34 Seg Neutrophils # 5.2 K/mm3 (1.8-7.7) 06/16/17 12:34 Sodium 137 mmol/L (137-145) 06/20/17 14:52 Potassium 4.8 mmol/L (3.6-5.0) 06/20/17 14:52 Chloride 99.7 mmol/L (98-107) 06/20/17 14:52 Carbon Dioxide 25 mmol/L (22-30) 06/20/17 14:52 Anion Gap 17 mmol/L 06/20/17 14:52 BUN 13 mg/dL (9-20) 06/20/17 14:52 Creatinine 0.5 mg/dL (0.8-1.5) L 06/20/17 14:52 Estimated GFR > 60 ml/min 06/20/17 14:52 BUN/Creatinine Ratio 26 % 06/20/17 14:52 Glucose 143 mg/dL (75-100) H 06/20/17 14:52 Calcium 8.1 mg/dL (8.4-10.2) L 06/20/17 14:52 Total Creatine Kinase 144 units/L (55-170) 06/15/17 03:01 CK-MB (CK-2) 1.4 ng/mL (0.0-4.0) 06/15/17 03:01 CK-MB (CK-2) Rel Index 0.9 (0-4) 06/15/17 03:01 Troponin T 0.019 ng/mL (0.00-0.029) 06/15/17 03:01 C-Reactive Protein 8.60 mg/dL (0.00-1.30) H 06/20/17 14:52 NT-Pro-B Natriuret Pep 2349 pg/mL (0-900) H 06/16/17 12:34 Urine Color [place] (Yellow) 06/15/17 Unknown Urine Turbidity Turbid (Clear) 06/15/17 Unknown Urine pH 5.0 (5.0-7.0) 06/15/17 Unknown Ur Specific Delta 1.025 (1.003-1.030) 06/15/17 Unknown Urine Protein 100 mg/dl mg/dL (Negative) 06/15/17 Unknown Urine Glucose (UA) Neg mg/dL (Negative) 06/15/17 Unknown Urine Ketones Neg mg/dL (Negative) 06/15/17 Unknown Urine Blood Mod (Negative) 06/15/17 Unknown Urine Nitrite Neg (Negative) 06/15/17 Unknown Urine Bilirubin Sm (Negative) 06/15/17 Unknown Urine Ictotest Negative (Negative) 06/15/17 Unknown Urine Urobilinogen 4.0 mg/dL (<2.0) 06/15/17 Unknown Ur Leukocyte Esterase Mod (Negative) 06/15/17 Unknown Urine WBC (Auto) > 182.0 /HPF (0.0-6.0) H 06/15/17 Unknown Urine RBC (Auto) 28.0 /HPF (0.0-6.0) 06/15/17 Unknown U Epithel Cells (Auto) 2.0 /HPF (0-13.0) 06/15/17 Unknown Ur Transition Epith Cell 1 /HPF 06/15/17 Unknown Urine Mucus 3+ /HPF 06/15/17 Unknown HIV 1&2 Antibody Rapid Non react (Non React) 06/15/17 16:23 HIV P24 Antigen Non react (Non React) 06/15/17 16:23 Mycoplasma pneumon IgG 4.47 (<=0.90) H 06/15/17 16:23 Mycoplasma pneumon IgM 71 U/mL (<770) 06/15/17 16:23 Miscellaneous Test Flexitest 1 06/17/17 20:45
[2017-06-21] MEDS: PROVENTIL IH SCH ×6 (09:14→21:00)
[2017-06-21] MEDS: LOVENOX SUB-Q SCH (11:20)
--- NOTE | 2017-06-21 11:28 | Progress Note ---
Assessment and Plan Assessment: 1) Sepsis: fever resolved (after adding meropenem). Etiology - UTI / pneumonia / ?malignancy / ?sarcoidosis. Procal=9.9 2) Bilateral pneumonia and extensive mediastinal/hilar LNs ? atypical pneumonia ? lymphoma -CT chest showed groundglass patchy airspace disease in periphery of left lung and right lung mid and upper lung with consolidative changes and extensive mediastianal and hilar LNs -CRP=20 -HIV neg x 2 -influenza neg -Legionella antigen negative -mycoplasma IgG positive indicating past infection 3) Weight loss 4) Recent admission in Apr 2017 with pneumonia and CHF EF 15% 5) UTI due to ESBL E coli Plan: -possible bronch/biopsy on Tuesday -contact isolation for ESBL UTI -continue meropenem day 5 of 7 -f/u REBECCA, SHIRLENE, ANCA -follow-up Streptococcus pneumoniae urine antigen Thank you for your consultation, will follow up with you. Tamara Clemens NP-C for Jennifer Oliveira MD Infectious Diseases Specialist [facility] M [phone] O [phone] Subjective Date of service: 06/21/17 Principal diagnosis: pneumonia, cardiomyopathy, SIRS Interval history: My biopsy will be done on Tuesday. Feels fatigue. Blod Cultures 1/2-NGTD Influenza-Negative Urine Culture-ESBL E coli Current Antimicrobials Meropenaem 1/ Previous Antimicrobials Zosybn 1/3 Azithromycin Objective - Constitutional Vitals: Vital Signs Temp Pulse Resp BP Pulse Ox 98.3 F 111 H 20 127/92 97 06/21/17 08:35 06/21/17 09:32 06/21/17 09:32 06/21/17 08:35 06/21/17 09:32 Temperature -Last 24 Hours Temperature 98.3 F Temperature 98.6 F Temperature 98.4 F General appearance: Present: mild distress - EENT Eyes: EOM intact - Neck Neck: supple, normal ROM - Respiratory Respiratory effort: other (shortness of breath with exertion) Respiratory: right: diminished (bilaterally) - Cardiovascular Rhythm: regular Heart Sounds: Present: S1 & S2 Extremities: Full ROM - Gastrointestinal General gastrointestinal: Present: soft, non-tender - Integumentary Integumentary: warm, dry - Musculoskeletal Musculoskeletal: generalized weakness (with exertion) - Neurologic Neurologic: CNII-XII intact - Psychiatric Psychiatric: appropriate mood/affect, memory intact - Labs CBC & Chem 7: 06/20/17 14:52 06/20/17 14:52 Labs: Abnormal lab results 06/17/17 06/20/17 06/20/17 Range/Units 14:30 14:52 14:52 Creatinine 0.5 L (0.8-1.5) mg/dL Glucose 143 H (75-100) mg/dL Calcium 8.1 L (8.4-10.2) mg/dL C-Reactive Protein 8.60 H (0.00-1.30) mg/dL Miscellaneous Test Flexitest 1 H
--- NOTE | 2017-06-21 12:48 | Consultation ---
History of Present Illness Consult date: 06/21/17 Requesting physician: JOEY WILLIAM Consult reason: other (cardiomyopathy ) History of present illness: Pt is a 52-year-old male with a past medical history significant for CMP (EF 15- 20%), ETOH use, marijuana use. He is followed in our office by Dr. Vazquez. He presented with c/o SOB, productive cough, fever and chills for several days prior to arrival. He denies any chest pain, palpitations, n/v, dizziness or syncope. Following arrival, pt was diagnosed with bilateral PNA with extensive mediastinal/hilar LNs, UTI and sepsis. Of note, pt was recently admitted to [facility] with similar complaints and was subsequently diagnosed with bilateral PNA. During that hospitalization, pt was also diagnosed with CMP after echo was obtained. Coronary angiography for further evaluation of CMP etiology and initiation of BB and ACEI/ARB was recommended at that time, however, pt refused any further noninvasive or invasive cardiac testing and refused to stay for safe introduction of these medications and then signed out AGAINST MEDICAL ADVICE on 05/04/2017. Pt did present to our office for post-hospital follow up after that hospitalization and he was initiated on low dose Coreg and Lisinopril and was recommended LifeVest. Past History Past Medical History: other (CMP) Past Surgical History: No surgical history Social history: alcohol abuse, other (marijuana use) Medications and Allergies Allergies Allergy/AdvReac Type Severity Reaction Status Date / Time No Known Allergies Allergy Verified 04/29/15 01:38 Home Medications Medication Instructions Recorded Confirmed Last Taken Type Carvedilol [Coreg] 3.125 mg PO BID 06/15/17 06/15/17 06/14/17 History Lisinopril [Zestril TAB] 2.5 mg PO DAILY 06/15/17 06/15/17 06/14/17 History Active Meds: Active Medications Acetaminophen (Tylenol) 650 mg PO Q4H PRN PRN Reason: Pain MILD(1-3)/Fever >100.5/GARCIA Last Admin: 06/20/17 21:50 Dose: 650 mg Albuterol (Proventil) 2.5 mg IH Q4HRT PRN PRN Reason: Shortness Of Breath Last Admin: 06/21/17 03:20 Dose: 2.5 mg Albuterol (Proventil) 2.5 mg IH QIDRT KRISSY Last Admin: 06/21/17 09:16 Dose: Not Given Bisacodyl (Dulcolax) 10 mg VA QDAY PRN PRN Reason: Constipation unrelieved by MOM Enoxaparin Sodium (Lovenox) 40 mg SUB-Q QDAY [facility] Last Admin: 06/21/17 11:20 Dose: 40 mg Hydrocodone Bit/Homatropine Methylb (Hydromet) 10 ml PO Q6H PRN PRN Reason: Cough Meropenem 1,000 mg/ Sodium (Chloride) 100 mls @ 100 mls/hr IV Q8HR [facility] PRN Reason: Protocol Last Admin: 06/21/17 06:15 Dose: 100 mls/hr Magnesium Hydroxide (Milk Of Magnesia) 30 ml PO Q4H PRN PRN Reason: Constipation Ondansetron HCl (Zofran) 4 mg IV Q8H PRN PRN Reason: N/V unrelieved by Reglan Review of Systems Constitutional: fever, chills Ears, nose, mouth and throat: no ear pain, no nose pain, no sinus pressure, no sinus pain Cardiovascular: no chest pain, no orthopnea, no palpitations, no rapid/ irregular heart beat, no edema, no syncope, no lightheadedness, no shortness of breath, no dyspnea on exertion, no high blood pressure, no leg edema Respiratory: cough with sputum, no wheezing, no pain on inspiration Gastrointestinal: no abdominal pain, no nausea, no vomiting, no diarrhea, no constipation, no change in bowel habits Genitourinary Male: no dysuria, no hematuria, no flank pain, no discharge, no urinary frequency, no urinary hesitancy Musculoskeletal: no neck stiffness, no neck pain, no shooting arm pain, no arm numbness/tingling, no low back pain, no shooting leg pain, no leg numbness/ tingling, no redness of joints Integumentary: no rash, no pruritis, no redness, no sores, no wounds Neurological: no head injury, no paralysis, no weakness, no parathesias, no numbness, no tingling, no seizures, no syncope Psychiatric: no anxiety Endocrine: no cold intolerance, no heat intolerance Hematologic/Lymphatic: no easy bruising, no easy bleeding Allergic/Immunologic: no urticaria, no wheezing Physical Examination Vital Signs Temp Pulse Resp BP Pulse Ox 100.8 F H 51 L 22 136/93 97 06/14/17 14:26 06/14/17 14:26 06/14/17 14:26 06/14/17 14:26 06/14/17 14:26 General appearance: no acute distress HEENT: Positive: PERRL, Normocephaly, Mucus Membranes Moist Neck: Positive: neck supple, trachea midline Cardiac: Positive: Reg Rate and Rhythm, S1/S2 Lungs: Positive: Rales (left base) Neuro: Positive: Grossly Intact Abdomen: Positive: Soft, Ascites. Negative: Tender Skin: Positive: Clear. Negative: Rash, Wound Extremities: Present: edema (trace BLE) Results 06/20/17 14:52 06/20/17 14:52 CBC 06/20/17 Range/Units 14:52 WBC 9.5 (4.5-11.0) K/mm3 RBC 4.54 (3.65-5.03) M/mm3 Hgb 12.8 (11.8-15.2) gm/dl Hct 39.6 (35.5-45.6) % Plt Count 332 (140-440) K/mm3 Comprehensive Metabolic Panel 06/20/17 Range/Units 14:52 Sodium 137 (137-145) mmol/L Potassium 4.8 (3.6-5.0) mmol/L Chloride 99.7 (98-107) mmol/L Carbon Dioxide 25 (22-30) mmol/L BUN 13 (9-20) mg/dL Creatinine 0.5 L (0.8-1.5) mg/dL Glucose 143 H (75-100) mg/dL Calcium 8.1 L (8.4-10.2) mg/dL - Imaging and Cardiology Echo: report reviewed (05/03/2017: EF 15-20%, LA moderately dilated, mod MR, mod TR, mod pulm HTN with RVSP 53mmHg, mod VA, trace AR ) EKG: report reviewed, image reviewed EKG interpretations - Telemetry EKG Rhythm: Sinus Tachycardia - EKG Sinus rhythms and dysrhythmias: sinus tachycardia Chamber hypertrophy or enlargement: left ventricular hypertro Assessment and Plan Assessment: Cardiomyopathy - EF 15-20%; ? ETOH induced Sinus tachycardia Sepsis Bilateral PNA with extensive mediastinal/hilar LNs UTI Moderate pulmonary HTN - RVSP 53mmHg Mod MR / Mod TR ETOH use / marijuana use - cessation encouraged Plan: No current clinical evidence of acutely decompensated heart failure. Resume home coreg and lisinopril. Plan for ischemic evaluation once medically stabilized. Pt is still considering LifeVest. Will readdress prior to discharge. Pt for possible bronchoscopy tomorrow. Pt is currently at moderate cardiovascular risk for bronch. However, there are no immediate cardiac contraindications to proceeding with bronch at this time. Assessment and plan reviewed with pt at bedside. The patient has been seen in conjunction with Dr. Rubi who agrees with the assessment and plan of care.
[2017-06-21] MEDS: ZESTRIL PO SCH (14:58)
--- NOTE | 2017-06-21 17:24 | Progress Note ---
Assessment and Plan Bilateral pneumonia. Pulmonary infiltrates off unclear etiology, possibly noninfectious but not clear. We'll need bronchoscopy for further evaluation. I again reviewed patient drug history when him alone, he denies any illegal drug use. Did not comment about alcohol use and no noncompliance issues (see notes on record). He also denied narcotic and Plavix use Patient had failure, severe cardiomyopathy, class IV. See cardiology comments Hypoxemia. Improved. Currently feels better without oxygen Past medical history of EtOH abuse Recommendations Continue CHF management Continue oxygen support Bronchoscopy including indications, benefits and risks was discussed with the patient detail. Specifically, risks of respiratory complications including hemoptysis, pneumothorax, pneumonia and respiratory failure, were discussed. All questions answered. The patient understands the procedure and potential benefits and complications and wants to proceed at this point. I also discussed the current cardiovascular is risks, as noted by cardiology. Plan is to perform transbronchial biopsy and BAL for culture evaluation. Subjective Date of service: 06/21/17 Principal diagnosis: pneumonia, cardiomyopathy, SIRS Interval history: Reports some shortness of breath earlier now better. No chest pain reported. No hemoptysis or active expectoration at this time. Already seen by cardiology , not in recommendations noted, reviewed with patient Objective Vital Signs - 12hr 06/21/17 06/21/17 06/21/17 08:35 08:54 08:58 Temperature 98.3 F Pulse Rate 42 L Pulse Rate [ Anterior Bilateral Throughout] Pulse Rate [ Posterior Bilateral] Respiratory 18 24 Rate Respiratory Rate [Anterior Bilateral Throughout] Respiratory 24 Rate [Chest] Respiratory Rate [Posterior Bilateral] Blood Pressure 127/92 O2 Sat by Pulse 97 Oximetry 06/21/17 06/21/17 09:32 14:58 Temperature Pulse Rate 64 Pulse Rate [ 111 H Anterior Bilateral Throughout] Pulse Rate [ 125 H Posterior Bilateral] Respiratory Rate Respiratory 20 Rate [Anterior Bilateral Throughout] Respiratory Rate [Chest] Respiratory 20 Rate [Posterior Bilateral] Blood Pressure 124/90 O2 Sat by Pulse 97 Oximetry Constitutional: no acute distress, alert, appears uncomfortable Eyes: non-icteric ENT: oropharynx moist Neck: supple, no lymphadenopathy Effort: normal Ascultation: Bilateral: clear, diminished breath sounds Percussion: Bilateral: not dull Tactile fremitus: Bilateral: normal Cardiovascular: regular rate and rhythm Gastrointestinal: normoactive bowel sounds Integumentary: normal Extremities: no cyanosis, no edema, pink and warm, pulses normal CBC and BMP: 06/20/17 14:52 06/20/17 14:52 Abnormal lab findings: Abnormal Labs 06/14/17 06/14/17 06/15/17 14:48 14:48 16:23 WBC 15.4 H Lymph % (Auto) 6.5 L [place] % (Auto) Lymph # 1.0 L [place] # 1.0 H Seg Neutrophils % 86.7 H Seg Neutrophils # 13.4 H Sodium 135 L Chloride 95.1 L BUN Creatinine Glucose 151 H Calcium 8.1 L C-Reactive Protein 20.30 H NT-Pro-B Natriuret Pep Urine WBC (Auto) Mycoplasma pneumon IgG Miscellaneous Test 06/15/17 06/15/17 06/16/17 16:23 Unknown 12:34 WBC Lymph % (Auto) 5.8 L [place] % (Auto) 7.9 H Lymph # 0.4 L [place] # Seg Neutrophils % 85.4 H Seg Neutrophils # Sodium Chloride BUN Creatinine Glucose Calcium C-Reactive Protein NT-Pro-B Natriuret Pep Urine WBC (Auto) > 182.0 H Mycoplasma pneumon IgG 4.47 H Miscellaneous Test 06/16/17 06/16/17 06/17/17 12:34 12:34 14:30 WBC Lymph % (Auto) [place] % (Auto) Lymph # [place] # Seg Neutrophils % Seg Neutrophils # Sodium Chloride 97.1 L BUN 22 H Creatinine Glucose Calcium 8.1 L C-Reactive Protein NT-Pro-B Natriuret Pep 2349 H Urine WBC (Auto) Mycoplasma pneumon IgG Miscellaneous Test Flexitest 1 H 06/20/17 06/20/17 14:52 14:52 WBC Lymph % (Auto) [place] % (Auto) Lymph # [place] # Seg Neutrophils % Seg Neutrophils # Sodium Chloride BUN Creatinine 0.5 L Glucose 143 H Calcium 8.1 L C-Reactive Protein 8.60 H NT-Pro-B Natriuret Pep Urine WBC (Auto) Mycoplasma pneumon IgG Miscellaneous Test CT scan - chest: report reviewed, image reviewed
[2017-06-21] MEDS: COREG PO SCH ×2 (18:36→22:43)
--- NOTE | 2017-06-21 21:06 | XRay Report ---
FINAL REPORT PROCEDURE: XR SHOULDER 2+V LT TECHNIQUE: Left shoulder radiographs including AP views in internal and external rotation and abduction. CPT 44554 HISTORY: L shoulder pain COMPARISON: No prior studies are available for comparison. FINDINGS: Fracture (s) and/or Dislocation(s): There is widening of the acromioclavicular joint which could be chronic.. Joint space(s): There is advanced degenerative arthrosis of the glenohumeral joint.. Soft tissues: Normal . Bone mineralization: Normal . Foreign bodies: None . IMPRESSION: There is no acute fracture. There is widening of the acromioclavicular joint which could be chronic.. 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
[2017-06-22] MEDS: MERREM 1,000 MG in NACL 0.9% 100 ML IV SCH ×3 (05:32→22:47)
[2017-06-22] MEDS ORDERED: NACL 0.9% 1000 ML 1,000 ML ONE (07:27)
[2017-06-22] MEDS: ZESTRIL PO SCH (08:01)
[2017-06-22] MEDS: PROVENTIL IH SCH ×5 (08:27→20:14)
[2017-06-22] MEDS ORDERED: LIDOCAINE VISCOUS 2% ONE (09:06)
[2017-06-22] MEDS ORDERED: HURRICAINE ONE 20% TOPICAL SPRAY MM ×2 (09:06→11:10)
[2017-06-22] MEDS ORDERED: XYLOCAINE 1% 20 mL ONE (09:06)
[2017-06-22] MEDS ORDERED: ADRENALIN ONE (09:06)
[2017-06-22] MEDS: COREG PO SCH ×2 (10:00→22:47)
[2017-06-22] MEDS ORDERED: SUBLIMAZE ONE (10:39)
[2017-06-22] MEDS ORDERED: VERSED ONE (10:39)
[2017-06-22] MEDS ORDERED: AMIDATE IV ONE ×2 (10:39→11:09)
[2017-06-22] MEDS ORDERED: DIPRIVAN 10 MG/ML IV ONE (10:40)
[2017-06-22] MEDS ORDERED: NACL 0.9% 1000 ML 1,000 ML IV SCH (11:00)
--- NOTE | 2017-06-22 11:00 | Progress Note ---
<TAMARA SIERRA - Last Filed: 06/22/17 11:07> Assessment and Plan Assessment: 1) Sepsis: fever resolved (after adding meropenem). Etiology - UTI / pneumonia / ?malignancy / ?sarcoidosis. Procal=9.9 2) Bilateral pneumonia and extensive mediastinal/hilar LNs ? atypical pneumonia ? lymphoma -CT chest showed groundglass patchy airspace disease in periphery of left lung and right lung mid and upper lung with consolidative changes and extensive mediastianal and hilar LNs -CRP=20 -HIV neg x 2 -influenza neg -Legionella antigen negative -mycoplasma IgG positive indicating past infection 3) Weight loss 4) Recent admission in Apr 2017 with pneumonia and CHF EF 15% 5) UTI due to ESBL E coli Plan: -possible bronch/biopsy today -contact isolation for ESBL UTI -continue meropenem day 5 of 7 -f/u REBECCA, SHIRLENE, ANCA -follow-up Streptococcus pneumoniae urine antigen Thank you for your consultation, will follow up with you. Tamara Sierra NP-C for Jennifer Oliveira MD Infectious Diseases Specialist [facility] ([facility]) M [phone] O [phone] Subjective Date of service: 06/22/17 Principal diagnosis: pneumonia, cardiomyopathy, SIRS Interval history: I am hungry since I have not had anything to eat or drink since midnight getting ready for my biopsy today. I have a fever. Blod Cultures 1/2-NGTD Influenza-Negative Urine Culture-ESBL E coli Current Antimicrobials Meropenaem 1/5 Previous Antimicrobials Zosybn 1/3 Azithromycin Objective - Exam Narrative Exam: neral appearance: Alert in NAD, conversant Eyes: anicteric sclerae, moist conjunctivae; no lid-lag; PERRLA HENT: Atraumatic; oropharynx clear Neck: Trachea midline; supple, no thyromegaly or lymphadenopathy Lungs: tammi crackles CV: RRR Abdomen: Soft, non-tender; no masses or hepatosplenomegaly Extremities: No peripheral edema or extremity lymphadenopathy Skin: Normal temperature, turgor and texture; no rash, ulcers or subcutaneous nodules Psych: Appropriate affect, calm and cooperative Neuro: alert and oriented x 3. Moving all extermities Lines: No CVL / PICC - Constitutional Vitals: Vital Signs Temp Pulse Resp BP Pulse Ox 99.6 F 115 H 24 134/97 93 06/22/17 10:58 06/22/17 10:58 06/22/17 10:58 06/22/17 10:58 06/22/17 10:58 Temperature -Last 24 Hours Temperature 99.6 F Temperature 99.6 F Temperature 99.7 F Temperature 99.0 F Temperature 99.3 F - Labs CBC & Chem 7: 06/20/17 14:52 06/20/17 14:52 <JENNIFER BLEDSOE - Last Filed: 06/22/17 14:31> Assessment and Plan Patient seen and examine with CHAVA Sierra. Agree with above documentation. F/u BAL results done today Objective - Constitutional Vitals: Vital Signs Temp Pulse Resp BP Pulse Ox 98 F 107 H 20 103/75 97 06/22/17 11:36 06/22/17 12:06 06/22/17 12:06 06/22/17 12:06 06/22/17 12:06 Temperature -Last 24 Hours Temperature 98 F Temperature 99.6 F Temperature 99.6 F Temperature 99.7 F Temperature 99.0 F Temperature 99.3 F - Labs CBC & Chem 7: 06/20/17 14:52 06/20/17 14:52
--- NOTE | 2017-06-22 11:06 | Anesthesia Consultation ---
Anesthesia Consult and Med Hx Date of service: 06/22/17 - Airway Anesthetic Teeth Evaluation: Poor (missing all bottom teeth except a few in front), Edentulous (upper) ROM Head & Neck: Adequate Mental/Hyoid Distance: Adequate Mallampati Class: Class III Intubation Access Assessment: Possibly Difficult - Pulmonary Exam CTA: Yes - Cardiac Exam Cardiac Exam: RRR - Pre-Operative Health Status ASA Pre-Surgery Classification: ASA4 Proposed Anesthetic Plan: MAC - Pre-Anesthesia Comment Pre-Anesthesia Comments: CHF EF 15-20% on ECHO 04/29. - Pulmonary Hx Smoking: Yes (quit 20 yrs ago) Hx Asthma: No SOB: Yes (limited activity level since 1 month ago) COPD: No Home Oxygen Therapy: No (denies, on floor O2. O2 90% on RA) Hx Pneumonia: Yes (bilateral pneumonia recently) Hx Sleep Apnea: No - Cardiovascular System Hx Hypertension: Yes Hx Heart Attack/AMI: No (denies) - Central Nervous System Hx Seizures: No CVA: No - Endocrine Hx End Stage Renal Disease: No - Other Systems Hx Alcohol Use: Yes (heavy drinker, stopped a couple years ago) Hx Substance Use: Yes (marijuana) Hx Cancer: No - Additional Comments Anesthesia Medical History Comments: Pt denies any familial anesthesia complication. No sx hx
--- NOTE | 2017-06-22 11:07 | Anesthesia Day of Surgery ---
Anesthesia Day of Surgery - Day of Surgery Patient Examined: Yes Patient H&P Reviewed: Yes Patient is NPO: Yes Beta Blockers: Yes
--- NOTE | 2017-06-22 11:19 | Progress Note ---
Assessment and Plan Assessment: Cardiomyopathy - EF 15-20%; ? ETOH induced Sinus tachycardia Sepsis Bilateral PNA with extensive mediastinal/hilar LNs UTI Moderate pulmonary HTN - RVSP 53mmHg Mod MR / Mod TR ETOH use / marijuana use - cessation encouraged Plan: Cont coreg and lisinopril. Initiate PO lasix 40mg daily and aldactone. Plan for ischemic evaluation once medically stabilized. Pt is still considering LifeVest. Will readdress prior to discharge. Pt for bronchoscopy today. Assessment and plan reviewed with pt at bedside. The patient has been seen in conjunction with Dr. Rubi who agrees with the assessment and plan of care. Subjective Date of service: 06/22/17 Principal diagnosis: pneumonia, cardiomyopathy, SIRS Interval history: Pt resting at bedside, no current cardiac complaints. Has been NPO since [place] for bronch today and complaining of hunger. Objective Last Vital Signs Temp 99.6 F 06/22/17 10:58 Pulse 115 H 06/22/17 10:58 Resp 24 06/22/17 10:58 BP 134/97 06/22/17 10:58 Pulse Ox 93 06/22/17 10:58 - Physical Examination HEENT: Positive: PERRL, Normocephaly, Mucus Membranes Moist Neck: Positive: neck supple, trachea midline Cardiac: Positive: Reg Rate and Rhythm, S1/S2 Lungs: Positive: Decreased Breath Sounds Neuro: Positive: Grossly Intact Abdomen: Positive: Soft, Ascites. Negative: Tender Skin: Positive: Clear. Negative: Rash, Wound Extremities: Present: edema (trace BLE) - Imaging and Cardiology EKG: report reviewed, image reviewed Echo: report reviewed (05/03/2017: EF 15-20%, LA moderately dilated, mod MR, mod TR, mod pulm HTN with RVSP 53mmHg, mod NM, trace AR ) - EKG Sinus rhythms and dysrhythmias: sinus tachycardia Chamber hypertrophy or enlargement: left ventricular hypertro
[2017-06-22] MEDS ORDERED: LIDOCAINE VISCOUS 2% MM ONE (11:25)
[2017-06-22] MEDS ORDERED: XYLOCAINE 2% INFILTRATI ONE (11:25)
--- NOTE | 2017-06-22 11:44 | Post Operative Note ---
Date of procedure: 06/22/17 Pre-op diagnosis: pneumonia Post-op diagnosis: same Findings: Bronchoscopy with BAL left upper lobe, bronchiolitis for cytology and cell count differential, left upper lobe Anesthesia: MAC Surgeon: EDUARDO GUILLERMO Estimated blood loss: none Pathology: list Specimen disposition: to lab Condition: stable Disposition: PACU
--- NOTE | 2017-06-22 12:00 | Operative Report ---
Operative Report Operative Report: BRONCHOSCOPY REPORT Preoperative diagnosis: pneumonia, congestive heart failure, cardiomyopathy Postoperative diagnosis: pneumonia, moderate proximal bronchitis Procedure: bronchoscopy with BAL, bronchial wash for cytology, left upper lobe Patient Alverto Armenta underwent bronchoscopy today after informed consent was obtained and discussed in detail with the patient .This was signed and placed on the patient chart. Patient was then taken to the endoscopy suite and standard timeout review was done. Patient had topical anesthetic with nasal lidocaine. Once sedated the scope was gently introduced through the left naris and the posterior pharynx and subglottic area were inspected. The epiglottis and vocal cords look normal, vocal cord showed normal mobility. After additional topical lidocaine at this point, the trachea and main radha were inspected. The trachea was normal with no lesions seen. Main radha was sharp and midline. We then proceeded to inspect the the right main, right upper lobe, bronchus intermedius, right middle lobe and right lower lobe segmental and subsegmental airways. Proximal hyperemia was noted with some mucosal inflammation. All airways were open and no gross endobronchial lesions seen. We then inspected the left main and left upper lobe lingular and left lower lobe segmental and subsegmental airways. Again proximal hyperemia with mucosal edema noted. Distal airways were all open with normal mucosa and no gross endobronchial lesions . At this point were performed bronchial lavage for culture of the left upper lobe posterior apical segment. This was followed by once for cytology for cell count differential. No bloody fluid noted. Biopsy was deferred due to persistent high respiratory rate (over 40) and persistent cough being unable to secure forceps and scope position. Procedure was completed without any further complications and although some desaturation noted patient remained over 90% for the procedure. Complications: none. See above discussion Samples: bronchial lavage for culture left upper lobe. Bronchial washings for cell count and differential count left upper lobe Postprocedure recommendations/orders: to PACU and then to floor if stable Nothing by mouth for 2 hours and then initiate diet if water tolerated Continue oxygen support and monitor oximetry postop Will discuss later with patient and family on recovery or the floor
--- NOTE | 2017-06-22 12:00 | Post Anesthesia Evaluation ---
- Post Anesthesia Evaluation Patient Participated: Yes Airway Patent: Yes Stable Respiratory Function: Yes Temp > 96.8F: Yes Pain Manageable: Yes Adequeate Hydration: Yes Anesthesia Complications: No
[2017-06-22] MEDS: LASIX PO SCH (13:52)
--- NOTE | 2017-06-22 15:18 | Progress Note ---
<RICO ROCHA - Last Filed: 06/22/17 15:18> Assessment and Plan Assessment and plan: 52-year-old man with no medical problem was just discharged from the hospital where was treated for pneumonia. He stated he has completed his course of antibi but today denies calling saying that she has such a large amount when she got up for PT issues discussion and not from COMPUTER TECHNICAL SPECIALIST standpoint I did not but we did order otic. He returned with complaints of shortness of breath, fever and chest pain in the left chest which she describes as dull pain. Pain is intermittent in nature, lasted for a few minutes, intensity 5/10, no radiation, he cannot identify exacerbating or relieving factors. He complained of a cough productive of white phlegm. Sepsis due to UTI, bilateral PNA Improving, Leukocytosis resolved today Will continue Zosyn for now, urine culture shows gram neg rods blood culture pending ID following checking - REBECCA, SHIRLENE, ANCA Bilateral pneumonia and extensive mediastinal/hilar LNs -CT chest showed groundglass patchy airspace disease in periphery of left lung and right lung mid and upper lung with consolidated changes and extensive mediastianal and hilar LNs Pulmonology following Bronchoscopy completed today Cardiomyopathy Cardiology following - EF 15-20%; ? ETOH induced Patient initiated on home Lisinopril and Coreg, cleared for bronch Sinus tachycardia Cardiology following, Coreg initiated UTI Continue abx, mereponem day 5/7 Shoulder Pain Shoulder Xray shows no acute fracture but widening of the acromioclavicular joint DVT prophylaxis Lovenox Full code status History Interval history: Patient was seen and examined. He denies chest pain, shortness of breath, nausea, vomiting. Nursing notes and labs reviewed. Hospitalist Physical - Constitutional Vitals: Temp Pulse Resp BP Pulse Ox 98 F 107 H 20 103/75 97 06/22/17 11:36 06/22/17 12:06 06/22/17 12:06 06/22/17 12:06 06/22/17 12:06 General appearance: Present: no acute distress - EENT Eyes: Present: PERRL, EOM intact ENT: hearing intact, clear oral mucosa - Neck Neck: Present: supple, normal ROM - Respiratory Respiratory effort: normal Respiratory: bilateral: diminished - Cardiovascular Rhythm: regular Heart Sounds: Present: S1 & S2 - Extremities Extremities: no ischemia, No edema - Abdominal General gastrointestinal: soft, non-tender, non-distended - Integumentary Integumentary: Present: clear, warm, dry - Psychiatric Psychiatric: appropriate mood/affect, cooperative - Neurologic Neurologic: CNII-XII intact, moves all extremities - Allied Health Allied health notes reviewed: nursing Results - Labs CBC & Chem 7: 06/20/17 14:52 06/20/17 14:52 Labs: Laboratory Last Values WBC 9.5 K/mm3 (4.5-11.0) 06/20/17 14:52 RBC 4.54 M/mm3 (3.65-5.03) 06/20/17 14:52 Hgb 12.8 gm/dl (11.8-15.2) 06/20/17 14:52 Hct 39.6 % (35.5-45.6) 06/20/17 14:52 MCV 87 fl (84-94) 06/20/17 14:52 MCH 28 pg (28-32) 06/20/17 14:52 MCHC 32 % (32-34) 06/20/17 14:52 RDW 14.4 % (13.2-15.2) 06/20/17 14:52 Plt Count 332 K/mm3 (140-440) 06/20/17 14:52 Lymph % (Auto) 5.8 % (13.4-35.0) L 06/16/17 12:34 Roberts % (Auto) 7.9 % (0.0-7.3) H 06/16/17 12:34 Eos % (Auto) 0.5 % (0.0-4.3) 06/16/17 12:34 Baso % (Auto) 0.4 % (0.0-1.8) 06/16/17 12:34 Lymph # 0.4 K/mm3 (1.2-5.4) L 06/16/17 12:34 Roberts # 0.5 K/mm3 (0.0-0.8) 06/16/17 12:34 Eos # 0.0 K/mm3 (0.0-0.4) 06/16/17 12:34 Baso # 0.0 K/mm3 (0.0-0.1) 06/16/17 12:34 Seg Neutrophils % 85.4 % (40.0-70.0) H 06/16/17 12:34 Seg Neutrophils # 5.2 K/mm3 (1.8-7.7) 06/16/17 12:34 Sodium 137 mmol/L (137-145) 06/20/17 14:52 Potassium 4.8 mmol/L (3.6-5.0) 06/20/17 14:52 Chloride 99.7 mmol/L (98-107) 06/20/17 14:52 Carbon Dioxide 25 mmol/L (22-30) 06/20/17 14:52 Anion Gap 17 mmol/L 06/20/17 14:52 BUN 13 mg/dL (9-20) 06/20/17 14:52 Creatinine 0.5 mg/dL (0.8-1.5) L 06/20/17 14:52 Estimated GFR > 60 ml/min 06/20/17 14:52 BUN/Creatinine Ratio 26 % 06/20/17 14:52 Glucose 143 mg/dL (75-100) H 06/20/17 14:52 Calcium 8.1 mg/dL (8.4-10.2) L 06/20/17 14:52 Total Creatine Kinase 144 units/L (55-170) 06/15/17 03:01 CK-MB (CK-2) 1.4 ng/mL (0.0-4.0) 06/15/17 03:01 CK-MB (CK-2) Rel Index 0.9 (0-4) 06/15/17 03:01 Troponin T 0.019 ng/mL (0.00-0.029) 06/15/17 03:01 C-Reactive Protein 8.60 mg/dL (0.00-1.30) H 06/20/17 14:52 NT-Pro-B Natriuret Pep 2349 pg/mL (0-900) H 06/16/17 12:34 Urine Color Mojgan (Yellow) 06/15/17 Unknown Urine Turbidity Turbid (Clear) 06/15/17 Unknown Urine pH 5.0 (5.0-7.0) 06/15/17 Unknown Ur Specific [place] 1.025 (1.003-1.030) 06/15/17 Unknown Urine Protein 100 mg/dl mg/dL (Negative) 06/15/17 Unknown Urine Glucose (UA) Neg mg/dL (Negative) 06/15/17 Unknown Urine Ketones Neg mg/dL (Negative) 06/15/17 Unknown Urine Blood Mod (Negative) 06/15/17 Unknown Urine Nitrite Neg (Negative) 06/15/17 Unknown Urine Bilirubin Sm (Negative) 06/15/17 Unknown Urine Ictotest Negative (Negative) 06/15/17 Unknown Urine Urobilinogen 4.0 mg/dL (<2.0) 06/15/17 Unknown Ur Leukocyte Esterase Mod (Negative) 06/15/17 Unknown Urine WBC (Auto) > 182.0 /HPF (0.0-6.0) H 06/15/17 Unknown Urine RBC (Auto) 28.0 /HPF (0.0-6.0) 06/15/17 Unknown U Epithel Cells (Auto) 2.0 /HPF (0-13.0) 06/15/17 Unknown Ur Transition Epith Cell 1 /HPF 06/15/17 Unknown Urine Mucus 3+ /HPF 06/15/17 Unknown HIV 1&2 Antibody Rapid Non react (Non React) 06/15/17 16:23 HIV P24 Antigen Non react (Non React) 06/15/17 16:23 Mycoplasma pneumon IgG 4.47 (<=0.90) H 06/15/17 16:23 Mycoplasma pneumon IgM 71 U/mL (<770) 06/15/17 16:23 Miscellaneous Test Flexitest 1 06/17/17 20:45 <JOEY WILLIAM - Last Filed: 06/22/17 17:21> Assessment and Plan Assessment and plan: I saw and evaluated the patient. I agree with the findings and the plan of care as documented in the PA's~note, with the following corrections and additions. Anticipate discharge in AM if patient remains stable. Patient awaiting lifevest Hospitalist Physical - Constitutional Vitals: Temp Pulse Resp BP Pulse Ox 98 F 107 H 20 103/75 97 06/22/17 11:36 06/22/17 12:06 06/22/17 12:06 06/22/17 12:06 06/22/17 12:06 Results - Labs CBC & Chem 7: 06/20/17 14:52 06/20/17 14:52 Labs: Laboratory Last Values WBC 9.5 K/mm3 (4.5-11.0) 06/20/17 14:52 RBC 4.54 M/mm3 (3.65-5.03) 06/20/17 14:52 Hgb 12.8 gm/dl (11.8-15.2) 06/20/17 14:52 Hct 39.6 % (35.5-45.6) 06/20/17 14:52 MCV 87 fl (84-94) 06/20/17 14:52 MCH 28 pg (28-32) 06/20/17 14:52 MCHC 32 % (32-34) 06/20/17 14:52 RDW 14.4 % (13.2-15.2) 06/20/17 14:52 Plt Count 332 K/mm3 (140-440) 06/20/17 14:52 Lymph % (Auto) 5.8 % (13.4-35.0) L 06/16/17 12:34 Roberts % (Auto) 7.9 % (0.0-7.3) H 06/16/17 12:34 Eos % (Auto) 0.5 % (0.0-4.3) 06/16/17 12:34 Baso % (Auto) 0.4 % (0.0-1.8) 06/16/17 12:34 Lymph # 0.4 K/mm3 (1.2-5.4) L 06/16/17 12:34 Roberts # 0.5 K/mm3 (0.0-0.8) 06/16/17 12:34 Eos # 0.0 K/mm3 (0.0-0.4) 06/16/17 12:34 Baso # 0.0 K/mm3 (0.0-0.1) 06/16/17 12:34 Seg Neutrophils % 85.4 % (40.0-70.0) H 06/16/17 12:34 Seg Neutrophils # 5.2 K/mm3 (1.8-7.7) 06/16/17 12:34 Sodium 137 mmol/L (137-145) 06/20/17 14:52 Potassium 4.8 mmol/L (3.6-5.0) 06/20/17 14:52 Chloride 99.7 mmol/L (98-107) 06/20/17 14:52 Carbon Dioxide 25 mmol/L (22-30) 06/20/17 14:52 Anion Gap 17 mmol/L 06/20/17 14:52 BUN 13 mg/dL (9-20) 06/20/17 14:52 Creatinine 0.5 mg/dL (0.8-1.5) L 06/20/17 14:52 Estimated GFR > 60 ml/min 06/20/17 14:52 BUN/Creatinine Ratio 26 % 06/20/17 14:52 Glucose 143 mg/dL (75-100) H 06/20/17 14:52 Calcium 8.1 mg/dL (8.4-10.2) L 06/20/17 14:52 Total Creatine Kinase 144 units/L (55-170) 06/15/17 03:01 CK-MB (CK-2) 1.4 ng/mL (0.0-4.0) 06/15/17 03:01 CK-MB (CK-2) Rel Index 0.9 (0-4) 06/15/17 03:01 Troponin T 0.019 ng/mL (0.00-0.029) 06/15/17 03:01 C-Reactive Protein 8.60 mg/dL (0.00-1.30) H 06/20/17 14:52 NT-Pro-B Natriuret Pep 2349 pg/mL (0-900) H 06/16/17 12:34 Urine Color Mojgan (Yellow) 06/15/17 Unknown Urine Turbidity Turbid (Clear) 06/15/17 Unknown Urine pH 5.0 (5.0-7.0) 06/15/17 Unknown Ur Specific [place] 1.025 (1.003-1.030) 06/15/17 Unknown Urine Protein 100 mg/dl mg/dL (Negative) 06/15/17 Unknown Urine Glucose (UA) Neg mg/dL (Negative) 06/15/17 Unknown Urine Ketones Neg mg/dL (Negative) 06/15/17 Unknown Urine Blood Mod (Negative) 06/15/17 Unknown Urine Nitrite Neg (Negative) 06/15/17 Unknown Urine Bilirubin Sm (Negative) 06/15/17 Unknown Urine Ictotest Negative (Negative) 06/15/17 Unknown Urine Urobilinogen 4.0 mg/dL (<2.0) 06/15/17 Unknown Ur Leukocyte Esterase Mod (Negative) 06/15/17 Unknown Urine WBC (Auto) > 182.0 /HPF (0.0-6.0) H 06/15/17 Unknown Urine RBC (Auto) 28.0 /HPF (0.0-6.0) 06/15/17 Unknown U Epithel Cells (Auto) 2.0 /HPF (0-13.0) 06/15/17 Unknown Ur Transition Epith Cell 1 /HPF 06/15/17 Unknown Urine Mucus 3+ /HPF 06/15/17 Unknown HIV 1&2 Antibody Rapid Non react (Non React) 06/15/17 16:23 HIV P24 Antigen Non react (Non React) 06/15/17 16:23 Mycoplasma pneumon IgG 4.47 (<=0.90) H 06/15/17 16:23 Mycoplasma pneumon IgM 71 U/mL (<770) 06/15/17 16:23 Miscellaneous Test Flexitest 1 06/17/17 20:45
[2017-06-23] MEDS: MERREM 1,000 MG in NACL 0.9% 100 ML IV SCH ×3 (06:01→23:12)
[2017-06-23] MEDS: PROVENTIL IH SCH ×4 (08:48→20:36)
[2017-06-23] MEDS: ALDACTONE PO SCH (09:05)
[2017-06-23] MEDS: ZESTRIL PO SCH (09:05)
[2017-06-23] MEDS: COREG PO SCH ×2 (10:43→23:12)
[2017-06-23] MEDS: LASIX PO SCH (10:44)
--- NOTE | 2017-06-23 11:42 | Progress Note ---
Assessment and Plan Assessment: 1) Sepsis: fever resolved (after adding meropenem). Etiology - UTI / pneumonia / ?malignancy / ?sarcoidosis. Procal=9.9 2) Bilateral pneumonia and extensive mediastinal/hilar LNs ? atypical pneumonia ? lymphoma -CT chest showed groundglass patchy airspace disease in periphery of left lung and right lung mid and upper lung with consolidative changes and extensive mediastianal and hilar LNs -CRP=20 -HIV neg x 2 -influenza neg -Legionella antigen negative -mycoplasma IgG positive indicating past infection 3) Weight loss 4) Recent admission in Apr 2017 with pneumonia and CHF EF 15% 5) UTI due to ESBL E coli Plan: -follow up on bronch/biopsy -contact isolation for ESBL UTI -continue meropenem day 6 of 7 -f/u REBECCA, SHIRLENE, ANCA -follow-up Streptococcus pneumoniae urine antigen -ok to discharge home from ID standpoint with Thank you for your consultation, will follow up with you. Tamara Clemens NP-C for Jennifer Oliveira MD Infectious Diseases Specialist [facility] ([facility]) M [phone] O [phone] Subjective Date of service: 06/23/17 Principal diagnosis: pneumonia, cardiomyopathy, SIRS Interval history: I feel better and I want to go home Blod Cultures 1/2-NGTD Influenza-Negative Urine Culture-ESBL E coli Current Antimicrobials Meropenaem 1/5 Previous Antimicrobials Zosybn 1/3 Azithromycin Objective - Exam Narrative Exam: neral appearance: Alert in NAD, conversant Eyes: anicteric sclerae, moist conjunctivae; no lid-lag; PERRLA HENT: Atraumatic; oropharynx clear Neck: Trachea midline; supple, no thyromegaly or lymphadenopathy Lungs: tammi crackles with occasional SOB CV: RRR, no thrills Abdomen: Soft, non-tender; no masses or hepatosplenomegaly Extremities: No peripheral edema or extremity lymphadenopathy Skin: Normal temperature, turgor and texture; no rash, ulcers or subcutaneous nodules Psych: Appropriate affect, calm and cooperative Neuro: alert and oriented x 3. Moving all extermities Lines: No CVL / PICC - Constitutional Vitals: Vital Signs Temp Pulse Resp BP Pulse Ox 97.5 F L 110 H 20 114/87 97 06/22/17 23:02 06/23/17 08:43 06/23/17 08:43 06/22/17 23:02 06/23/17 08:48 Temperature -Last 24 Hours Temperature 97.5 F Temperature 98.4 F - Labs CBC & Chem 7: 06/20/17 14:52 06/20/17 14:52
--- NOTE | 2017-06-23 13:42 | Progress Note ---
Assessment and Plan Assessment: Cardiomyopathy - EF 15-20%; ? ETOH induced Sinus tachycardia - improving; suspect physiologic secondary to sepsis Sepsis Bilateral PNA with extensive mediastinal/hilar LNs - s/p bronch yesterday UTI Moderate pulmonary HTN - RVSP 53mmHg Mod MR / Mod TR ETOH use / marijuana use - cessation encouraged Plan: Currently stable cardiac status. Cont coreg, lisinopril, lasix, aldactone. Will plan for ischemic evaluation as OP once acute infection is resolved. Pt is still considering LifeVest and wishes to readdress as OP. Pt may discharge home from cardiology standpoint. Follow up in our [place] office with Dr. Vazquez on 06/29/2017 @ 1:45PM. Assessment and plan reviewed with pt at bedside. The patient has been seen in conjunction with Dr. Rubi who agrees with the assessment and plan of care. Subjective Date of service: 06/23/17 Principal diagnosis: pneumonia, cardiomyopathy, SIRS Interval history: Pt resting at bedside, no current cardiac complaints. Objective Last Vital Signs Temp 97.5 F L 06/22/17 23:02 Pulse 107 H 06/23/17 12:27 Resp 20 06/23/17 12:27 BP 114/87 06/22/17 23:02 Pulse Ox 97 06/23/17 08:48 - Physical Examination HEENT: Positive: PERRL, Normocephaly, Mucus Membranes Moist Neck: Positive: neck supple, trachea midline Cardiac: Positive: Reg Rate and Rhythm, S1/S2 Lungs: Positive: Decreased Breath Sounds, Rhonchi Neuro: Positive: Grossly Intact Abdomen: Positive: Soft, Ascites. Negative: Tender Skin: Positive: Clear. Negative: Rash, Wound Extremities: Present: edema (trace BLE) - Imaging and Cardiology EKG: report reviewed, image reviewed Echo: report reviewed (05/03/2017: EF 15-20%, LA moderately dilated, mod MR, mod TR, mod pulm HTN with RVSP 53mmHg, mod OR, trace AR ) - EKG Sinus rhythms and dysrhythmias: sinus tachycardia Chamber hypertrophy or enlargement: left ventricular hypertro
--- NOTE | 2017-06-23 13:53 | Progress Note ---
Assessment and Plan Bilateral pneumonia. Pulmonary infiltrates off unclear etiology, status post bronchoscopy. Initial smears from BAL shows no bacteria. Will need to wait for cultures for additional information Present failure , severe cardiomyopathy, class IV. See cardiology comments Hypoxemia. Improved. Currently feels better without oxygen Past medical history of EtOH abuse Recommendations Check cultures. If no additional growth or any new pathological agent, I will recommend that the patient completes current antibiotics. See also ID recommendations Continue CHF management Continue oxygen support SHIRLENE LDH I discussed bronchoscopic findings and current plan of care with the patient his . All questions answered. They are both in agreement with plan of care Subjective Date of service: 06/23/17 Principal diagnosis: pneumonia, cardiomyopathy, SIRS Interval history: Patient reports to refill them better today. Shortness of breath less prominent. No cough or expectoration at this time. Objective Vital Signs - 12hr 06/23/17 06/23/17 06/23/17 05:47 08:33 08:43 Pulse Rate [ 103 H 110 H Anterior Bilateral Throughout] Respiratory 20 20 Rate [Anterior Bilateral Throughout] Respiratory 24 Rate [Chest] O2 Sat by Pulse Oximetry 06/23/17 06/23/17 06/23/17 08:48 12:17 12:27 Pulse Rate [ 105 H 107 H Anterior Bilateral Throughout] Respiratory 20 20 Rate [Anterior Bilateral Throughout] Respiratory Rate [Chest] O2 Sat by Pulse 97 Oximetry Constitutional: no acute distress, alert, appears uncomfortable Eyes: non-icteric ENT: oropharynx moist Neck: supple, no lymphadenopathy, no JVD Effort: normal Ascultation: Bilateral: clear, diminished breath sounds Percussion: Bilateral: not dull Tactile fremitus: Bilateral: normal Cardiovascular: regular rate and rhythm Gastrointestinal: normoactive bowel sounds Integumentary: normal Extremities: no cyanosis, no edema, pink and warm, pulses normal Neurologic: normal mental status, non-focal exam, pupils equal and round, CN II- XII normal CBC and BMP: 06/20/17 14:52 06/20/17 14:52 Abnormal lab findings: Abnormal Labs 06/14/17 06/14/17 06/15/17 14:48 14:48 16:23 WBC 15.4 H Lymph % (Auto) 6.5 L [place] % (Auto) Lymph # 1.0 L [place] # 1.0 H Seg Neutrophils % 86.7 H Seg Neutrophils # 13.4 H Sodium 135 L Chloride 95.1 L BUN Creatinine Glucose 151 H Calcium 8.1 L C-Reactive Protein 20.30 H NT-Pro-B Natriuret Pep Urine WBC (Auto) Mycoplasma pneumon IgG Miscellaneous Test 06/15/17 06/15/17 06/16/17 16:23 Unknown 12:34 WBC Lymph % (Auto) 5.8 L [place] % (Auto) 7.9 H Lymph # 0.4 L [place] # Seg Neutrophils % 85.4 H Seg Neutrophils # Sodium Chloride BUN Creatinine Glucose Calcium C-Reactive Protein NT-Pro-B Natriuret Pep Urine WBC (Auto) > 182.0 H Mycoplasma pneumon IgG 4.47 H Miscellaneous Test 06/16/17 06/16/17 06/17/17 12:34 12:34 14:30 WBC Lymph % (Auto) [place] % (Auto) Lymph # [place] # Seg Neutrophils % Seg Neutrophils # Sodium Chloride 97.1 L BUN 22 H Creatinine Glucose Calcium 8.1 L C-Reactive Protein NT-Pro-B Natriuret Pep 2349 H Urine WBC (Auto) Mycoplasma pneumon IgG Miscellaneous Test Flexitest 1 H 06/20/17 06/20/17 14:52 14:52 WBC Lymph % (Auto) [place] % (Auto) Lymph # [place] # Seg Neutrophils % Seg Neutrophils # Sodium Chloride BUN Creatinine 0.5 L Glucose 143 H Calcium 8.1 L C-Reactive Protein 8.60 H NT-Pro-B Natriuret Pep Urine WBC (Auto) Mycoplasma pneumon IgG Miscellaneous Test Chest x-ray: report reviewed, image reviewed
--- NOTE | 2017-06-23 18:11 | Progress Note ---
Assessment and Plan Assessment and plan: 52-year-old man with no medical problem was just discharged from the hospital where was treated for pneumonia. 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 He returned with complaints of shortness of breath, fever and chest pain in the left chest which she describes as dull pain. Pain is intermittent in nature, lasted for a few minutes, intensity 5/10, no radiation, he cannot identify exacerbating or relieving factors. He complained of a cough productive of white phlegm. Sepsis due to UTI, bilateral PNA Improving, Leukocytosis resolved today Will continue Zosyn for now, urine culture shows gram neg rods blood culture pending ID following checking - REBECCA, SHIRLENE, ANCA Bilateral pneumonia and extensive mediastinal/hilar LNs -CT chest showed groundglass patchy airspace disease in periphery of left lung and right lung mid and upper lung with consolidated changes and extensive mediastianal and hilar LNs Pulmonology following Bronchoscopy done but abruptly stopped due to increased respiratory rate Moderate MR and TR Cardiomyopathy Cardiology following - EF 15-20%; ? ETOH induced Patient initiated on home Lisinopril and Coreg, cleared for bronch Sinus tachycardia Cardiology following, Coreg initiated ETOH USE AND MARIJUANA USE Cessation encouraged UTI Continue abx, mereponem day 5/7 Shoulder Pain Shoulder Xray shows no acute fracture but widening of the acromioclavicular joint DVT prophylaxis Lovenox Full code status Plan for discharge in AM Assess for Home o2 Patient will need close follow up with PRIMARY CARE AND ALSO WITH Cardiology and Pulmonary. History Interval history: Patient seen and examined, still some mild shortness of breath noted, and also reports concern about their left shoulder. Reports a trip and fall a few months ago. Hospitalist Physical - Physical exam Narrative exam: VITAL SIGNS: Reviewed. GENERAL: The patient appeared well nourished and normally developed. Vital signs as documented. HEAD: No signs of head trauma. EYES: Pupils are equal. Extraocular motions intact. EARS: Hearing grossly intact. MOUTH: Oropharynx is normal. NECK: No adenopathy, no JVD. CHEST: Chest with diminish breath sounds bilaterally. No wheezes, rales, or rhonchi. CARDIAC: Regular rate and rhythm. S1 and S2, without murmurs, gallops, or rubs. VASCULAR: No Edema. Peripheral pulses normal and equal in all extremities. ABDOMEN: Soft, without detectable tenderness. No sign of distention. No rebound or guarding, and no masses palpated. Bowel Sounds normal. MUSCULOSKELETAL: noted clavicular prominience on left side. Good range of motion of all major joints. Extremities without clubbing, cyanosis or edema. NEUROLOGIC EXAM: Alert and oriented x 3. No focal sensory or strength deficits. Speech normal. Follows commands. PSYCHIATRIC: Mood normal. SKIN: No rash or lesions. - Constitutional Vitals: Temp Pulse Resp BP Pulse Ox 97.5 F L 60 20 114/87 97 06/22/17 23:02 06/23/17 17:30 06/23/17 17:30 06/22/17 23:02 06/23/17 08:48 General appearance: Present: no acute distress Results - Labs CBC & Chem 7: 06/20/17 14:52 06/20/17 14:52 Labs: Laboratory Last Values WBC 9.5 K/mm3 (4.5-11.0) 06/20/17 14:52 RBC 4.54 M/mm3 (3.65-5.03) 06/20/17 14:52 Hgb 12.8 gm/dl (11.8-15.2) 06/20/17 14:52 Hct 39.6 % (35.5-45.6) 06/20/17 14:52 MCV 87 fl (84-94) 06/20/17 14:52 MCH 28 pg (28-32) 06/20/17 14:52 MCHC 32 % (32-34) 06/20/17 14:52 RDW 14.4 % (13.2-15.2) 06/20/17 14:52 Plt Count 332 K/mm3 (140-440) 06/20/17 14:52 Lymph % (Auto) 5.8 % (13.4-35.0) L 06/16/17 12:34 [place] % (Auto) 7.9 % (0.0-7.3) H 06/16/17 12:34 Eos % (Auto) 0.5 % (0.0-4.3) 06/16/17 12:34 Baso % (Auto) 0.4 % (0.0-1.8) 06/16/17 12:34 Lymph # 0.4 K/mm3 (1.2-5.4) L 06/16/17 12:34 [place] # 0.5 K/mm3 (0.0-0.8) 06/16/17 12:34 Eos # 0.0 K/mm3 (0.0-0.4) 06/16/17 12:34 Baso # 0.0 K/mm3 (0.0-0.1) 06/16/17 12:34 Seg Neutrophils % 85.4 % (40.0-70.0) H 06/16/17 12:34 Seg Neutrophils # 5.2 K/mm3 (1.8-7.7) 06/16/17 12:34 Sodium 137 mmol/L (137-145) 06/20/17 14:52 Potassium 4.8 mmol/L (3.6-5.0) 06/20/17 14:52 Chloride 99.7 mmol/L (98-107) 06/20/17 14:52 Carbon Dioxide 25 mmol/L (22-30) 06/20/17 14:52 Anion Gap 17 mmol/L 06/20/17 14:52 BUN 13 mg/dL (9-20) 06/20/17 14:52 Creatinine 0.5 mg/dL (0.8-1.5) L 06/20/17 14:52 Estimated GFR > 60 ml/min 06/20/17 14:52 BUN/Creatinine Ratio 26 % 06/20/17 14:52 Glucose 143 mg/dL (75-100) H 06/20/17 14:52 Calcium 8.1 mg/dL (8.4-10.2) L 06/20/17 14:52 Lactate Dehydrogenase 324 units/L (91-180) H 06/23/17 14:00 Total Creatine Kinase 144 units/L (55-170) 06/15/17 03:01 CK-MB (CK-2) 1.4 ng/mL (0.0-4.0) 06/15/17 03:01 CK-MB (CK-2) Rel Index 0.9 (0-4) 06/15/17 03:01 Troponin T 0.019 ng/mL (0.00-0.029) 06/15/17 03:01 C-Reactive Protein 8.60 mg/dL (0.00-1.30) H 06/20/17 14:52 NT-Pro-B Natriuret Pep 2349 pg/mL (0-900) H 06/16/17 12:34 Urine Color [place] (Yellow) 06/15/17 Unknown Urine Turbidity Turbid (Clear) 06/15/17 Unknown Urine pH 5.0 (5.0-7.0) 06/15/17 Unknown Ur Specific [place] 1.025 (1.003-1.030) 06/15/17 Unknown Urine Protein 100 mg/dl mg/dL (Negative) 06/15/17 Unknown Urine Glucose (UA) Neg mg/dL (Negative) 06/15/17 Unknown Urine Ketones Neg mg/dL (Negative) 06/15/17 Unknown Urine Blood Mod (Negative) 06/15/17 Unknown Urine Nitrite Neg (Negative) 06/15/17 Unknown Urine Bilirubin Sm (Negative) 06/15/17 Unknown Urine Ictotest Negative (Negative) 06/15/17 Unknown Urine Urobilinogen 4.0 mg/dL (<2.0) 06/15/17 Unknown Ur Leukocyte Esterase Mod (Negative) 06/15/17 Unknown Urine WBC (Auto) > 182.0 /HPF (0.0-6.0) H 06/15/17 Unknown Urine RBC (Auto) 28.0 /HPF (0.0-6.0) 06/15/17 Unknown U Epithel Cells (Auto) 2.0 /HPF (0-13.0) 06/15/17 Unknown Ur Transition Epith Cell 1 /HPF 06/15/17 Unknown Urine Mucus 3+ /HPF 06/15/17 Unknown HIV 1&2 Antibody Rapid Non react (Non React) 06/15/17 16:23 HIV P24 Antigen Non react (Non React) 06/15/17 16:23 Mycoplasma pneumon IgG 4.47 (<=0.90) H 06/15/17 16:23 Mycoplasma pneumon IgM 71 U/mL (<770) 06/15/17 16:23 Miscellaneous Test Flexitest 1 06/17/17 20:45 - Imaging and Cardiology Imaging and Cardiology: xray- widening in the acroniom side.
[2017-06-23 20:56] LABS: Myeloperoxidase Antibody <1.0 AI (<1.0)
[2017-06-24] MEDS: MERREM 1,000 MG in NACL 0.9% 100 ML IV SCH ×2 (05:16→15:39)
[2017-06-24 08:13] LABS: Monocytes Body Fluid 2 %; Total Cells Counted 400 /mm3
[2017-06-24] MEDS: PROVENTIL IH SCH ×3 (08:43→17:02)
[2017-06-24] MEDS: COREG PO SCH (09:07)
[2017-06-24] MEDS: ALDACTONE PO SCH (09:07)
[2017-06-24] MEDS: ZESTRIL PO SCH (09:07)
[2017-06-24] MEDS: LASIX PO SCH (09:08)
--- NOTE | 2017-06-24 10:36 | Progress Note ---
Assessment and Plan Assessment: 1) Sepsis: fever resolved (after adding meropenem). Etiology - UTI / pneumonia / ?malignancy / ?sarcoidosis. Procal=9.9 2) Bilateral pneumonia and extensive mediastinal/hilar LNs ? atypical pneumonia ? lymphoma -CT chest showed groundglass patchy airspace disease in periphery of left lung and right lung mid and upper lung with consolidative changes and extensive mediastianal and hilar LNs -CRP=20 -HIV neg x 2 -influenza neg -Legionella antigen negative -mycoplasma IgG positive indicating past infection -Broch showed Magalie Albicans 3) Weight loss 4) Recent admission in Apr 2017 with pneumonia and CHF EF 15% 5) UTI due to ESBL E coli Plan: -contact isolation for ESBL UTI -stop meropenen -f/u REBECCA, SHIRLENE, ANCA -follow-up Streptococcus pneumoniae urine antigen -f/u with plumonay for CT chest bilaterally -ok to discharge home from ID standpoint We will sign off Thank you for your consultation, will follow up with you. Dr. Delgado will round on Saturday 06/24 Tamara Clemens NP-C for Jennifer Oliveira MD Infectious Diseases Specialist [facility] M [phone] O [phone] Subjective Date of service: 06/24/17 Principal diagnosis: pneumonia, cardiomyopathy, SIRS Interval history: I feel better and I have no fever, thought I was going home yesterday Blod Cultures 1/2-NGTD Influenza-Negative Urine Culture-ESBL E coli Current Antimicrobials Meropenaem 1/5 Previous Antimicrobials Zosybn 1/3 Azithromycin Objective - Exam Narrative Exam: neral appearance: Alert in NAD, conversant Eyes: anicteric sclerae, moist conjunctivae; no lid-lag; PERRLA HENT: Atraumatic; oropharynx clear Neck: Trachea midline; supple, no thyromegaly or lymphadenopathy Lungs: tammi crackles with occasional SOB CV: RRR, no thrills Abdomen: Soft, non-tender; no masses, + BS x 4 Extremities: +1 edema to bilateral lower extremities Skin: Normal temperature, turgor and texture; no rash, ulcers or subcutaneous nodules, warm and ashy Psych: Appropriate affect, calm and cooperative Neuro: alert and oriented x 3. Moving all extermities Lines: No CVL / PICC - Constitutional Vitals: Vital Signs Temp Pulse Resp BP Pulse Ox 98.4 F 104 H 20 92/63 93 06/24/17 07:24 06/24/17 09:07 06/24/17 07:24 06/24/17 09:07 06/24/17 07:24 Temperature -Last 24 Hours Temperature 98.4 F - Labs CBC & Chem 7: 06/20/17 14:52 06/20/17 14:52 Labs: Abnormal lab results 06/23/17 Range/Units 14:00 Lactate Dehydrogenase 324 H (91-180) units/L
[2017-06-24 11:10] LABS: ANA Screen, IFA Negative (Negative)
--- NOTE | 2017-06-24 13:10 | Progress Note ---
Assessment and Plan Bilateral pneumonia. Pulmonary infiltrates off unclear etiology, status post bronchoscopy. Initial smears from BAL shows Magalie. Possibly contaminant from the airway . BAL differential is predominantly lymphocytic, suspicious for chronic process such as sarcoidosis, HP ,lymphoma or other on the underlying noninfectious process. Unfortunately no biopsy could be done because of respiratory limitations. Need to check on Song titer regarding sarcoidosis. Also of concern, high LDH for underlying process such as lymphoma, in HIV negative patient. Doubt PCP, but pathology can be asked to do special stains for this .Will need to wait for cultures for additional information CHF failure , severe cardiomyopathy, class IV. Still c/o SOB , RAMESH, chest clear Hypoxemia. Improved. Currently feels better without oxygen Past medical history of EtOH abuse Recommendations Update BNP Check cultures. Check SONG level Consider Oncology review regarding the sternal adenopathy, high LDH -lymphoma? Continue CHF management Continue oxygen support CTD markers are normal. Doubt collagen vascular disease or ANCA related vasculitis I discussed bronchoscopic findings and current plan of care with the patient Subjective Date of service: 06/24/17 Principal diagnosis: pneumonia, cardiomyopathy, SIRS Interval history: c/o SOB, fatigue, RAMESH. No cough or wheezing Objective Vital Signs - 12hr 06/24/17 06/24/17 06/24/17 07:24 08:43 08:53 Temperature 98.4 F Pulse Rate 104 H Pulse Rate [ 60 57 L Anterior Bilateral Throughout] Pulse Rate [ Apical] Respiratory 20 Rate Respiratory 18 18 Rate [Anterior Bilateral Throughout] Blood Pressure 92/63 O2 Sat by Pulse 93 93 Oximetry 06/24/17 06/24/17 09:07 10:00 Temperature Pulse Rate 104 H Pulse Rate [ Anterior Bilateral Throughout] Pulse Rate [ 104 H Apical] Respiratory 20 Rate Respiratory Rate [Anterior Bilateral Throughout] Blood Pressure 92/63 O2 Sat by Pulse 93 Oximetry Constitutional: no acute distress, alert, appears uncomfortable Eyes: non-icteric ENT: oropharynx moist Neck: supple, no lymphadenopathy, no JVD Effort: normal Ascultation: Bilateral: clear, diminished breath sounds Percussion: Bilateral: not dull Tactile fremitus: Bilateral: normal Cardiovascular: regular rate and rhythm Gastrointestinal: normoactive bowel sounds Integumentary: normal Extremities: no cyanosis, no edema, pink and warm, pulses normal Neurologic: normal mental status, non-focal exam, pupils equal and round, CN II- XII normal CBC and BMP: 06/20/17 14:52 06/20/17 14:52 Abnormal lab findings: Abnormal Labs 06/14/17 06/14/17 06/15/17 14:48 14:48 16:23 WBC 15.4 H Lymph % (Auto) 6.5 L [place] % (Auto) Lymph # 1.0 L [place] # 1.0 H Seg Neutrophils % 86.7 H Seg Neutrophils # 13.4 H Sodium 135 L Chloride 95.1 L BUN Creatinine Glucose 151 H Calcium 8.1 L Lactate Dehydrogenase C-Reactive Protein 20.30 H NT-Pro-B Natriuret Pep Urine WBC (Auto) Mycoplasma pneumon IgG Miscellaneous Test 06/15/17 06/15/17 06/16/17 16:23 Unknown 12:34 WBC Lymph % (Auto) 5.8 L [place] % (Auto) 7.9 H Lymph # 0.4 L [place] # Seg Neutrophils % 85.4 H Seg Neutrophils # Sodium Chloride BUN Creatinine Glucose Calcium Lactate Dehydrogenase C-Reactive Protein NT-Pro-B Natriuret Pep Urine WBC (Auto) > 182.0 H Mycoplasma pneumon IgG 4.47 H Miscellaneous Test 06/16/17 06/16/17 06/17/17 12:34 12:34 14:30 WBC Lymph % (Auto) [place] % (Auto) Lymph # [place] # Seg Neutrophils % Seg Neutrophils # Sodium Chloride 97.1 L BUN 22 H Creatinine Glucose Calcium 8.1 L Lactate Dehydrogenase C-Reactive Protein NT-Pro-B Natriuret Pep 2349 H Urine WBC (Auto) Mycoplasma pneumon IgG Miscellaneous Test Flexitest 1 H 06/20/17 06/20/17 06/23/17 14:52 14:52 14:00 WBC Lymph % (Auto) [place] % (Auto) Lymph # [place] # Seg Neutrophils % Seg Neutrophils # Sodium Chloride BUN Creatinine 0.5 L Glucose 143 H Calcium 8.1 L Lactate Dehydrogenase 324 H C-Reactive Protein 8.60 H NT-Pro-B Natriuret Pep Urine WBC (Auto) Mycoplasma pneumon IgG Miscellaneous Test
--- NOTE | 2017-06-24 14:03 | Discharge Summary ---
Providers - Providers Date of Admission: 06/15/17 06:14 Date of discharge: 06/24/17 Attending physician: JOEY WILLIAM MD 06/15/17 06:14 Consult to Physician [CONS] Routine Consulting Provider: SOHAN BLEDSOE Reason For Exam: sirs Place consult to:: Danny Notified:: yes Time called:: 09:15 Comment:: Dr Delgado already aware of this order 06/16/17 12:37 Consult to Physician [CONS] Routine Consulting Provider: RODOLFO LOMELI Reason For Exam: Lymphadenopathy,infiltrates,ground glass raquel Place consult to:: DR. LOMELI Notified:: DR. LOMELI Phone number called:: [phone] Was contact made?: Yes If yes, spoke with:: SHARYN Time called:: 12:47 Comment:: YESI NOTIFIED Primary care physician: MELCHOR ARNOLD Hospitalization Condition: Good Pertinent studies: Chest x-ray showed cardiomegaly, pulmonary edema and mild CHF CT chest showed groundglass patchy airspace disease in periphery of left lung and right lung mid and upper lung with consolidated changes and extensive mediastianal and hilar LNs Shoulder Xray shows no acute fracture but widening of the acromioclavicular joint Procedures: Bronchoscopy Hospital course: 52-year-old man with no medical problem was just discharged from the hospital where was treated for pneumonia. 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 He returned with complaints of shortness of breath, fever and chest pain in the left chest which she describes as dull pain. Pain is intermittent in nature, lasted for a few minutes, intensity 5/10, no radiation, he cannot identify exacerbating or relieving factors. He complained of a cough productive of white phlegm. Patient was found to have ESBL Escherichia coli UTI, was placed on contact isolation and was treated with IV antibiotics and IV fluids after which he improved clinically. Discharge diagnoses Sepsis UTI Bilateral pneumonia Moderate mitral regurg and tricuspid regurg Cardiomyopathy Sinus tachycardia Alcohol use Marijuana use Shoulder pain DVT prophylaxis Disposition: TO HOME OR SELFCARE Time spent for discharge: 35 mins Core Measure Documentation - Palliative Care Palliative Care/ Comfort Measures: Not Applicable - Core Measures Any of the following diagnoses?: none Exam - Constitutional Vitals: Temp Pulse Resp BP Pulse Ox 98.4 F 104 H 20 92/63 93 06/24/17 07:24 06/24/17 10:00 06/24/17 10:00 06/24/17 09:07 06/24/17 10:00 General appearance: Present: no acute distress, well-nourished - EENT Eyes: Present: PERRL ENT: hearing intact, clear oral mucosa - Neck Neck: Present: supple, normal ROM - Respiratory Respiratory effort: normal Respiratory: bilateral: diminished - Cardiovascular Heart Sounds: Present: S1 & S2. Absent: rub, click - Extremities Extremities: pulses symmetrical, No edema Peripheral Pulses: within normal limits - Abdominal General gastrointestinal: Present: soft, non-tender, non-distended, normal bowel sounds Male genitourinary: Present: deferred - Rectal Rectal Exam: deferred - Integumentary Integumentary: Present: clear, warm, dry - Musculoskeletal Musculoskeletal: gait normal, strength equal bilaterally - Psychiatric Psychiatric: appropriate mood/affect, intact judgment & insight - Neurologic Neurologic: CNII-XII intact, moves all extremities - Allied Health Allied health notes reviewed: nursing Plan Activity: advance as tolerated, fall precautions, other (no strenuous activity unless cleared by cardiology/PCP) Diet: low fat, low cholesterol, low salt Follow up with: MELCHOR ARNOLD MD [Primary Care Provider] - 3-5 Days EDUARDO GUILLERMO MD [Staff Physician] - 7 Days BERRY GALE MD [Staff Physician] - 7 Days GREGORIA TIMMONS MD [Staff Physician] - 7 Days Prescriptions: Carvedilol [Coreg] 3.125 mg PO BID 30 Days tablet Furosemide [Lasix TAB] 40 mg PO QDAY 30 Days tablet Lisinopril [Zestril TAB] 2.5 mg PO QDAY 30 Days tablet Spironolactone [Aldactone] 25 mg PO QDAY 30 Days tablet
[2017-06-24 15:47] VITALS: BP 130/83
== END 2017-06-24 20:45 | disposition home or self-care (01) | DRG 853 ==
LOC: ED 13:56 → 3A 06-15 06:14
PROVIDERS: ADMIT Internal Medicine; ATTEND Internal Medicine
PROC: 0B9G8ZX Drainage of Left Upper Lung Lobe, Via Natural or Artificial Opening Endoscopic, Diagnostic (ICD-10-PCS; principal; 2017-06-15)
PROC: 3E0234Z Introduction of Serum, Toxoid and Vaccine into Muscle, Percutaneous Approach (ICD-10-PCS; 2017-06-16)
DX: A41.9 Sepsis, unspecified organism (principal); J18.9 Pneumonia, unspecified organism; N39.0 Urinary tract infection, site not specified; I27.20 Pulmonary hypertension, unspecified; F12.90 Cannabis use, unspecified, uncomplicated; I08.1 Rheumatic disorders of both mitral and tricuspid valves; R59.0 Localized enlarged lymph nodes; B96.20 Unspecified Escherichia coli [E. coli] as the cause of diseases classified elsewhere; Z16.12 Extended spectrum beta lactamase (ESBL) resistance; Z82.49 Family history of ischemic heart disease and other diseases of the circulatory system; Z23 Encounter for immunization
CPT/HCPCS: 36415; 71045; 71270; 80048; 81001; 82164; 82550; 82553; 83520; 83615; 83880; 84484; 85025; 85027; 86021; 86038; 86140; 86738; 87040; 87076; 87086; 87102; 87116; 87186; 87220; 87400; 87449; 87806; 88112; 89051; 90732; 93005; 93010; 94640; 94760; 96365; 96375; J0171; J0456; J1650; J1940; J1956; J2185; J2250; J2405; J2543; J2704; J3010; J7030; J7050; Q9967

== ENCOUNTER 2017-08-10 06:29 | Day surgery (SDC) | payer OTHER ==
[2017-08-10] MEDS ORDERED: ECOTRIN PO NR (07:02)
[2017-08-10 07:39] LABS: Basophils % (Auto) 0.6 % (0.0-1.8); Eosinophils # (Auto) 0.1 K/mm3 (0.0-0.4); Hematocrit 45.8 % (35.5-45.6); Hemoglobin 14.7 gm/dl (11.8-15.2); Lymphocytes # (Auto) 1.9 K/mm3 (1.2-5.4); Mean Corpuscular HGB Conc 32 % (32-34); Mean Corpuscular Hemoglobin 28 pg (28-32); Mean Corpuscular Volume 87 fl (84-94); Monocytes # (Auto) 0.5 K/mm3 (0.0-0.8); Monocytes % (Auto) 10.8 % (0.0-7.3); Platelet Count 210 K/mm3 (140-440); Red Blood Count 5.25 M/mm3 (3.65-5.03); Red Cell Distribution Width 16.8 % (13.2-15.2)
[2017-08-10 07:47] LABS: INR 1.16 (0.87-1.13)
[2017-08-10] MEDS ORDERED: NACL 0.9% 500 ML 500 ML IV SCH (08:00)
[2017-08-10] MEDS ORDERED: HEPARIN/NS 5000 UNIT/500ML(CATH LAB) 1,000 ML IR ONE (08:16)
[2017-08-10 08:20] LABS: BUN/Creatinine Ratio 25; Blood Urea Nitrogen 20 mg/dL (9-20); Calcium 8.5 mg/dL (8.4-10.2); Hemolysis Index 10
[2017-08-10] MEDS: VERSED ONE ×2 (08:47→08:53)
[2017-08-10] MEDS: XYLOCAINE 2% INFILTRATI ONE ×3 (08:47→08:59)
[2017-08-10] MEDS: SUBLIMAZE ONE ×2 (08:47→08:53)
[2017-08-10] MEDS: HEPARIN 10,000 UNITS/10 ML ONE ×2 (08:51→08:59)
[2017-08-10] MEDS: NITROGLYCERIN SYRINGE 3 ML ONE ×2 (08:54→08:59)
[2017-08-10] MEDS: CALAN ONE ×2 (08:54→08:59)
--- NOTE | 2017-08-10 10:18 | Cardiac Catherization Report ---
LEFT HEART CATHETERIZATION REFERRING PHYSICIAN: Fredrick Vazquez MD CLINICAL INFORMATION: A 52-year-old -[place] gentleman, who is in the hospital for congestive heart failure, was found to have severe LV dysfunction. The patient is on Coreg, lisinopril, Lasix, and Aldactone. The patient is here for left heart catheterization to rule out coronary artery disease. Moderate sedation, supervised. The patient received 1 mg Versed and 50 mcg of fentanyl. Total sedation time was 20 minutes, started at 8:53 a.m. and finished at 9:13 a.m. PROCEDURE DETAILS: Left heart catheterization performed via the right radial artery, sterile technique, local anesthesia, 6-Chadian radial sheath inserted. PROCEDURE FINDINGS: 1. Left system engaged with JL3.5 catheter. Left main is large and patent and bifurcates into large LAD that is patent from proximally and distally. Diagonal 1 is a medium caliber vessel, patent. Circumflex is a large caliber vessel and high OM1 is a large caliber vessel, patent. OM2 is a medium caliber vessel, patent. RCA engaged with JR4, is a large dominant vessel, patent for proximally and distally, bifurcates into a medium caliber PDA and PLV. 2. LV gram done in LIBERIAN and [place] shows severe LV dysfunction. LV is severely dilated, EF approximately 10-15% with LVEDP 21 mmHg, LV is 105/21. Aortic is 104/78. No significant gradient across the aortic valve on pullback. 5-Chadian catheters were taken over guidewire, 6-Chadian radial sheath was discontinued. Radial dressing applied. No hematoma. No bleeding. SUMMARY: 1. Normal coronaries, large epicardial vessels. Severe LV dysfunction, EF 10-15% with a LVEDP of 21 mmHg. 2. Continue medical management of nonischemic cardiomyopathy. The patient tolerated the procedure well. Discussed with the patient and patient's family. JOB# [id number] ADRIAN/RENAN
--- NOTE | 2017-08-10 10:21 | Short Stay Summary ---
Short Stay Documentation Date of service: 08/10/17 - History H&P: obtained from office - Allergies and Medications Current Medications: Allergies No Known Allergies Allergy (Verified 04/29/15 01:38) Home Medications Medication Instructions Recorded Confirmed Last Taken Type Carvedilol [Coreg] 3.125 mg PO BID 06/15/17 06/15/17 06/14/17 History Carvedilol [Coreg] 3.125 mg PO BID 30 Days tablet 06/24/17 Unknown Rx Furosemide [Lasix TAB] 40 mg PO QDAY 30 Days tablet 06/24/17 Unknown Rx Lisinopril [Zestril TAB] 2.5 mg PO QDAY 30 Days tablet 06/24/17 Unknown Rx Spironolactone [Aldactone] 25 mg PO QDAY 30 Days tablet 06/24/17 Unknown Rx Active Medications Sodium Chloride (Nacl 0.9% 500 Ml) 500 mls @ 50 mls/hr IV DIRECT KRISSY Stop: 08/10/17 17:59 Last Admin: 08/10/17 08:15 Dose: 50 mls/hr - Brief post op/procedure progress note Date of procedure: 08/10/17 Pre-op diagnosis: shf Post-op diagnosis: same Procedure: see report Anesthesia: local Estimated blood loss: none Pathology: none - Disposition Condition at discharge: Good Disposition: IN-01 TO HOME OR SELFCARE - Discharge Diagnoses (1) Acute systolic CHF (congestive heart failure), NYHA class 4 Status: Chronic (2) Dyspnea Status: Resolved (3) Hypertension Status: Chronic Qualifiers: Hypertension type: essential hypertension Qualified Code(s): I10 - Essential (primary) hypertension Short Stay Discharge Plan Activity: advance as tolerated Wound: keep clean and dry Follow up with: SAMANTHA NGUYEN MD [Staff Physician] - 7 Days Prescriptions: Carvedilol [Coreg] 3.125 mg PO BID 30 Days #180 tablet Furosemide [Lasix TAB] 40 mg PO QDAY 30 Days #90 tablet Lisinopril [Zestril TAB] 2.5 mg PO QDAY 30 Days #90 tablet Spironolactone [Aldactone] 25 mg PO QDAY 30 Days #90 tablet
[2017-08-10 12:02] VITALS: BP 107/83
== END 2017-08-10 11:50 | disposition home or self-care (01) ==
LOC: CATHLABREC 06:29
PROVIDERS: ATTEND Internal Medicine
DX: I11.0 Hypertensive heart disease with heart failure (principal); I50.22 Chronic systolic (congestive) heart failure; I42.9 Cardiomyopathy, unspecified; Z79.899 Other long term (current) drug therapy; Z87.891 Personal history of nicotine dependence
CPT/HCPCS: 36415; 80048; 85025; 85610; 85730; 93005; 93010; 93458; 99156; 99157; C1894; J1644; J2250; J3010; Q9967

== ENCOUNTER 2018-11-02 15:13 | Emergency (ER) | payer MEDICAID ==
[2018-11-02 16:05] VITALS: BP 142/96
--- NOTE | 2018-11-02 16:05 | Emergency Department Report ---
Blank Doc - Documentation Documentation: 37 y o male presents to ED cc of pain to finger after accidently nailing his f irst three fingers together, staes pulled out nail hand xr tetnaus not up to date [facility] eval
--- NOTE | 2018-11-02 17:14 | XRay Report ---
PROCEDURE: XR HAND 3+V LT HISTORY: pain FINDINGS: PA, lateral and oblique views of the left hand were acquired and demonstrate no fracture or malalignment of the left hand. 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 IMPRESSION: No fracture is seen in the left hand This document is electronically signed by Phong Cross MD., Nov 02 2018 05:12:52 PM ET
[2018-11-02] MEDS ORDERED: BOOSTRIX IM ONE (19:57)
[2018-11-02] MEDS: BOOSTRIX IM ONE ×2 (19:58→20:52)
[2018-11-02] MEDS: NORCO 5/325 PO ONE ×2 (19:58→20:53)
--- NOTE | 2018-11-02 20:00 | Emergency Department Report ---
- General Chief Complaint: Laceration/Recheck/Suture Stated Complaint: (L) FINGER PAIN Time Seen by Provider: 11/02/18 15:58 Source: patient Mode of arrival: Ambulatory Limitations: No Limitations - History of Present Illness Initial Comments: pt is a 53 y/o aam who presents for puncture wounds to left 3, 4, and 5th digits via nail gun this am pt remove nail bleeding is controlled rom is intact there is mild swelling to left middle finger no deformity no numbness no paralysis, all bleeding is controlled last tetanus is unknown Onset/Timin -: hour(s) Extremity Location: Left: Hand Place: home Patient Tetanus UTD: No Context: accidental Associated Symptoms: pain - Related Data Previous Rx's Medication Instructions Recorded Last Taken Type Carvedilol [Coreg] 3.125 mg PO BID 30 Days #180 tablet 08/10/17 Unknown Rx Furosemide [Lasix TAB] 40 mg PO QDAY 30 Days #90 tablet 08/10/17 Unknown Rx Lisinopril [Zestril TAB] 2.5 mg PO QDAY 30 Days #90 tablet 08/10/17 Unknown Rx Spironolactone [Aldactone] 25 mg PO QDAY 30 Days #90 tablet 08/10/17 Unknown Rx Acetaminophen/Codeine [Tylenol 1 tab PO Q6H PRN #12 tab 11/02/18 Unknown Rx /Codeine # 3 tab] cephALEXin [Keflex] 500 mg PO Q8HR 10 Days #30 cap 11/02/18 Unknown Rx Allergies Allergy/AdvReac Type Severity Reaction Status Date / Time No Known Allergies Allergy Verified 04/29/15 01:38 ED Review of Systems ROS: Stated complaint: (L) FINGER PAIN Other details as noted in HPI Constitutional: denies: chills, fever Eyes: denies: eye pain, eye discharge, vision change ENT: denies: ear pain, throat pain Respiratory: denies: cough, shortness of breath, wheezing Cardiovascular: denies: chest pain, palpitations Endocrine: no symptoms reported Gastrointestinal: denies: abdominal pain, nausea, diarrhea Genitourinary: denies: urgency, dysuria Musculoskeletal: other (finger pain ) Skin: other (puncture wound fingers). denies: rash, lesions Neurological: denies: headache, weakness, paresthesias Psychiatric: denies: anxiety, depression Hematological/Lymphatic: denies: easy bleeding, easy bruising ED Past Medical Hx - Past Medical History Previous Medical History?: Yes Hx Hypertension: Yes Hx Heart Attack/AMI: No (denies) Hx Congestive Heart Failure: Yes Hx Diabetes: No Hx Seizures: No Hx Asthma: No Hx COPD: No Additional medical history: Heart Problems - Surgical History Past Surgical History?: No - Social History Smoking Status: Never Smoker Substance Use Type: None - Medications Home Medications: Home Medications Medication Instructions Recorded Confirmed Last Taken Type Carvedilol [Coreg] 3.125 mg PO BID 30 Days #180 tablet 08/10/17 Unknown Rx Furosemide [Lasix TAB] 40 mg PO QDAY 30 Days #90 tablet 08/10/17 Unknown Rx Lisinopril [Zestril TAB] 2.5 mg PO QDAY 30 Days #90 tablet 08/10/17 Unknown Rx Spironolactone [Aldactone] 25 mg PO QDAY 30 Days #90 tablet 08/10/17 Unknown Rx Acetaminophen/Codeine [Tylenol 1 tab PO Q6H PRN #12 tab 11/02/18 Unknown Rx /Codeine # 3 tab] cephALEXin [Keflex] 500 mg PO Q8HR 10 Days #30 cap 11/02/18 Unknown Rx ED Physical Exam - General Limitations: No Limitations General appearance: alert, in no apparent distress - Head Head exam: Present: atraumatic, normocephalic - Eye Eye exam: Present: normal appearance, PERRL, EOMI Pupils: Present: normal accommodation - ENT ENT exam: Present: normal exam, mucous membranes moist - Neck Neck exam: Present: normal inspection - Respiratory Respiratory exam: Present: normal lung sounds bilaterally. Absent: respiratory distress, wheezes, stridor, chest wall tenderness - Cardiovascular Cardiovascular Exam: Present: regular rate, normal rhythm, normal heart sounds. Absent: systolic murmur, diastolic murmur, rubs, gallop - GI/Abdominal GI/Abdominal exam: Present: soft, normal bowel sounds - Rectal Rectal exam: Present: deferred - Extremities Exam Extremities exam: Present: full ROM, tenderness (left fingers 23,4 &5th digits ), normal capillary refill. Absent: pedal edema, joint swelling, calf tenderness - Expanded Upper Extremity Exam Left Hand Wrist exam: Present: tenderness, swelling, other (puncture wounds ). Absent: abrasion, laceration, ecchymosis, deformity, crepidus, dislocation, erythema, amputation, nail avulsion, subungual hematoma Neuro motor exam: Present: wrist extension intact, thumb opposition intact, thumb IP flexion intact, thumb adduction intact, fingers 2-5 abduction intact Neurosensory exam: Present: 2-point discrimination, radial nerve intact, ulnar nerve intact, median nerve intact Vascular: Present: normal capillary refill, radial pulse, brachial pulse, ulnar pulse. Absent: pulse deficit radial art, pulse deficit ulnar art, pulse deficit brachial art - Back Exam Back exam: Present: normal inspection, full ROM, rash noted. Absent: tenderness - Neurological Exam Neurological exam: Present: alert, oriented X3, CN II-XII intact, normal gait, reflexes normal. Absent: motor sensory deficit - Psychiatric Psychiatric exam: Present: normal affect, normal mood - Skin Skin exam: Present: warm, dry, intact, normal color. Absent: rash ED Course Vital Signs 11/02/18 16:03 Temperature 98.2 F Pulse Rate 104 H Respiratory 16 Rate Blood Pressure 142/96 O2 Sat by Pulse 97 Oximetry ED Medical Decision Making - Radiology Data Radiology results: report reviewed, image reviewed Ordering Physician: KATHY SIU Date of Service: 11/02/18 Procedure(s): XR hand 3+V LT Accession Number(s): [id number] cc: KATHY SIU Fluoro Time In Minutes: PROCEDURE: XR HAND 3+V LT HISTORY: pain FINDINGS: PA, lateral and oblique views of the left hand were acquired and demonstrate no fracture or malalignment of the left hand. 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 plan tetanus, wound care , dc with keflex, tylenol 3 follow up with pcp in 2-3 days return to ed if symptoms worsen. Critical care attestation.: If time is entered above; I have spent that time in minutes in the direct care of this critically ill patient, excluding procedure time. ED Disposition Clinical Impression: Puncture wound of finger of left hand Qualifiers: Encounter type: initial encounter Qualified Code(s): S61.239A - Puncture wound without foreign body of unspecified finger without damage to nail, initial encounter Disposition: DC- TO HOME OR SELFCARE Is pt being admited?: No Does the pt Need Aspirin: No Condition: Stable Instructions: Puncture Wound (ED) Prescriptions: cephALEXin [Keflex] 500 mg PO Q8HR 10 Days #30 cap Acetaminophen/Codeine [Tylenol /Codeine # 3 tab] 1 tab PO Q6H PRN #12 tab PRN Reason: pain Referrals: [facility] [Outside] - 3-5 Days Forms: Work/School Release Form(ED) Time of Disposition: 20:15
[2018-11-02] MEDS ORDERED: TRIPLE ANTIBIOTIC TP ONE (20:49)
== END 2018-11-02 20:54 | disposition home or self-care (01) ==
LOC: ED 15:13
DX: S61.233A Puncture wound without foreign body of left middle finger without damage to nail, initial encounter (principal); S61.235A Puncture wound without foreign body of left ring finger without damage to nail, initial encounter; S61.237A Puncture wound without foreign body of left little finger without damage to nail, initial encounter; I11.0 Hypertensive heart disease with heart failure; I50.9 Heart failure, unspecified; W45.8XXA Other foreign body or object entering through skin, initial encounter; Y93.89 Activity, other specified; Y92.099 Unspecified place in other non-institutional residence as the place of occurrence of the external cause; Y99.8 Other external cause status
CPT/HCPCS: 90471; 90715; 99283; A6250

== ENCOUNTER 2019-02-05 02:06 | Emergency (ER) | payer MEDICAID ==
[2019-02-05 02:14] VITALS: BP 161/100
--- NOTE | 2019-02-05 03:04 | XRay Report ---
RIGHT WRIST 4 VIEWS. INDICATION / CLINICAL INFORMATION: pain and swelling COMPARISON: None available. FINDINGS: BONES / JOINT(S): No acute fracture or subluxation. Advanced degenerative change cyst proximal interp halangeal joint. Benign cystic change at the ulnar styloid process. SOFT TISSUES: No significant abnormality. ADDITIONAL FINDINGS: None. Signer Name: Gaurang Hilton MD Signed: 02/05/2019 3:00 AM Workstation Name: [id number]
[2019-02-05] MEDS ORDERED: ZOFRAN IM ONE (04:07)
[2019-02-05] MEDS ORDERED: MORPHINE IM ONE (04:07)
[2019-02-05] MEDS ORDERED: IBUPROFEN ONE (05:38)
[2019-02-05] MEDS ORDERED: IBUPROFEN PO ONE (05:38)
--- NOTE | 2019-02-05 06:57 | Emergency Department Report ---
Upper Extremity - HPI Chief Complaint: Extremity Injury, Upper Stated Complaint: RIGHT WRIST PAIN Upper Extremity: Right Wrist Occurred When: >5 Days Mechanism: Other (chronic ) Symptoms: Yes Pain with Movement, No Deformity, No Limited Range of Movement, No Numbness, No Weakness, No Swelling, No Bruising/Ecchymosis, No Laceration or Abrasion Other History: pt with wrist pain chronic denies new fall or trauma pain is 5/10 aching relieved by nothing exacerbated by "overuse " there is minimal swelling no deformity distal pulses intact rom intact ED Review of Systems ROS: Stated complaint: RIGHT WRIST PAIN Other details as noted in HPI Constitutional: denies: chills, fever Eyes: denies: eye pain, eye discharge, vision change ENT: denies: ear pain, throat pain Respiratory: denies: cough, shortness of breath, wheezing Cardiovascular: denies: chest pain, palpitations Endocrine: no symptoms reported Gastrointestinal: denies: abdominal pain, nausea, diarrhea Genitourinary: denies: urgency, dysuria Musculoskeletal: other (wrist and forearm pain right ). denies: back pain, joint swelling, arthralgia Skin: denies: rash, lesions Neurological: denies: headache, weakness, paresthesias Psychiatric: denies: anxiety, depression Hematological/Lymphatic: denies: easy bleeding, easy bruising ED Past Medical Hx - Past Medical History Previous Medical History?: Yes Hx Hypertension: Yes Hx Heart Attack/AMI: (denies) Hx Congestive Heart Failure: Yes Hx Diabetes: No Hx Seizures: No Hx Asthma: No Hx COPD: No Additional medical history: Heart Problems - Surgical History Past Surgical History?: No - Social History Smoking Status: Never Smoker Substance Use Type: None - Medications Home Medications: Home Medications Medication Instructions Recorded Confirmed Last Taken Type Carvedilol [Coreg] 3.125 mg PO BID 30 Days #180 tablet 08/10/17 Unknown Rx Furosemide [Lasix TAB] 40 mg PO QDAY 30 Days #90 tablet 08/10/17 Unknown Rx Lisinopril [Zestril TAB] 2.5 mg PO QDAY 30 Days #90 tablet 08/10/17 Unknown Rx Spironolactone [Aldactone] 25 mg PO QDAY 30 Days #90 tablet 08/10/17 Unknown Rx Acetaminophen/Codeine [Tylenol 1 tab PO Q6H PRN #12 tab 11/02/18 Unknown Rx /Codeine # 3 tab] cephALEXin [Keflex] 500 mg PO Q8HR 10 Days #30 cap 11/02/18 Unknown Rx Acetaminophen [Acetaminophen TAB] 1,000 mg PO Q6HR #30 tablet 02/05/19 Unknown Rx Capsaicin 0.075% [Zostrix Hp 1 applicatio TP TID #1 tube 02/05/19 Unknown Rx 0.075%] Upper Extremity Exam - Exam General: Vital signs noted. No distress. Alert and acting appropriately. Head and Torso: No HEENT Abnormality, No Neck Tenderness, No Chest/Lungs Abnormality, No Abdominal Tenderness, No Back Tenderness Shoulder Exam: Yes Normal Range of Motion in Shoulder, No Shoulder Tenderness, No Clavicle Tenderness, No Shoulder Deformity, No AC Joint Tenderness Arm Exam: No Arm/Humerus Tenderness, No Arm Deformity Forearm: Yes Forearm Tenderness, Yes Pain with Pronation, Yes Pain with Supination, No Forearm Deformity Wrist: Yes Wrist Tenderness, Yes Normal ROM in Wrist, No Wrist Deformity, No Snuffbox Tenderness, No Pain with Axial Thumb Compression Hand: Yes Normal ROM in Digit(s), No Hand Tenderness, No Hand Deformity, No Digit Tenderness, No Digit(s) Deformity, No Tendon Dysfunction CMS Exam: Yes Normal Distal Pulses, Yes Normal Capillary Refill, Yes Normal Distal Sensation, No Broken Skin ED Course Vital Signs 02/05/19 02/05/19 02:12 02:24 Temperature 97.7 F 97.7 F Pulse Rate 95 H 88 Respiratory 18 18 Rate Blood Pressure 161/100 161/100 O2 Sat by Pulse 95 96 Oximetry ED Medical Decision Making - Radiology Data Radiology results: report reviewed, image reviewed Ordering Physician: HELLEN SAVAGE MD Date of Service: 02/05/19 Procedure(s): XR wrist 3+V RT Accession Number(s): [id number] cc: HELLEN SAVAGE MD Fluoro Time In Minutes: RIGHT WRIST 4 VIEWS. INDICATION / CLINICAL INFORMATION: pain and swelling COMPARISON: None available. FINDINGS: BONES / JOINT(S): No acute fracture or subluxation. Advanced degenerative change cyst proximal interphalangeal joint. Benign cystic change at the ulnar styloid process. SOFT TISSUES: No significant abnormality. ADDITIONAL FINDINGS: None. Signer Name: Gaurang Hilton MD Signed: 02/05/2019 3:00 AM Workstation Name: [id number] Transcribed By: ES Dictated By: Gaurang Hilton MD Electronically Authenticated By: Gaurang Hilton MD Signed Date/Time: 02/05/19 030 DD/ 8 TD/TT: - Medical Decision Making this is an sulnar styloid process cyst no acute fracture plan nsaids follow up with ortho in 2-3 days pt verbalized agreement and understanding of discharge plan. Critical care attestation.: If time is entered above; I have spent that time in minutes in the direct care of this critically ill patient, excluding procedure time. ED Disposition Clinical Impression: Chronic pain of right hand, Bone cyst of hand Disposition: DC-01 TO HOME OR SELFCARE Is pt being admited?: No Does the pt Need Aspirin: No Condition: Stable Instructions: Arthralgia (ED) Prescriptions: Acetaminophen [Acetaminophen TAB] 1,000 mg PO Q6HR #30 tablet Capsaicin 0.075% [Zostrix Hp 0.075%] 1 applicatio TP TID #1 tube Referrals: GREGORIA TIMMONS MD [Staff Physician] - 3-5 Days Forms: Work/School Release Form(ED) Time of Disposition: 07:03
== END 2019-02-05 07:16 | disposition home or self-care (01) ==
LOC: ED 02:06
DX: G89.29 Other chronic pain (principal); M85.641 Other cyst of bone, right hand; I11.0 Hypertensive heart disease with heart failure; I50.9 Heart failure, unspecified; Z79.899 Other long term (current) drug therapy
CPT/HCPCS: 73110; 96372; 99283; J2270; J2405